=== PATIENT | female | born 1945 | race Caucasian/White ===

== ENCOUNTER 2019-03-30 08:11 | Outpatient (CLI) | payer MEDICARE, SELFPAY ==
[2019-03-30] MEDS: EPOETIN ALFA 10,000 UNITS/ML VIAL 20000 UNITS SUB-Q (08:51)
--- NOTE | 2019-03-30 08:55 | PC.NURSE ---
PATIENT HERE FOR WEEKLY PROCRIT INJECTION. LABS REVIEWED. PROCRIT ADMINISTERED SEE MAR. NO CONCERNS. PATIENT IS AWARE PROBABLY BE BACK TOMORROW FOR BLOOD TRANSFUSION. PATIENT SEEING ONCOLOGIST LATER TODAY. SAFE EXIT OF HOSPITAL.
== END 2019-03-30 08:12 | disposition home or self-care (01) ==
LOC: CHSLAB 08:15
PROVIDERS: PCP Internal Medicine Geriatric Medicine; Visit Provider Internal Medicine Hematology & Oncology
DX: D46.9 Myelodysplastic syndrome, unspecified (principal); D75.81 Myelofibrosis
CPT/HCPCS: 36415; 82728; 83540; 83550; 85025; 86850; 86900; 86901; 86920; 96372; J0885

== ENCOUNTER 2019-03-31 08:48 | Outpatient (CLI) | payer MEDICARE, SELFPAY ==
[2019-03-30 08:26] LABS: Eosinophils Absolute Auto 0.05 K/mm3 (0.02-0.50); Hematocrit 20.8 % (35.0-42.0); Immature Granulocyte Absolute 0.08 K/mm3 (0.00-0.00); Immature Granulocyte Percent A 1.6 % (0.0-0.0); Lymphocytes Absolute Auto 0.37 K/mm3 (1.10-4.50); Lymphocytes Percent Auto 7.3 % (18.0-42.0); Mean Corpuscular HGB Conc 32.2 g/dL (32.0-36.0); Mean Corpuscular Hemoglobin 30.9 pg (27.0-31.0); Mean Corpuscular Volume 95.9 fL (78.0-102.0); Mean Platelet Volume 9.2 fl (9.2-11.8); Monocytes Absolute Auto 0.59 K/mm3 (0.10-0.90); Monocytes Percent Auto 11.7 % (2.0-11.0); Neutrophils Percent Auto 78.4 % (50.0-70.0); Platelet Count Result 183 K/mm3 (150-420); Red Blood Count 2.17 M/mm3 (4.20-5.40); Red Cell Distribution Width 21.4 % (11.6-14.4); White Blood Count 5.1 K/mm3 (4.8-10.8)
[2019-03-30 08:34] LABS: Hemoglobin 6.7 g/dL (11.7-13.8)
[2019-03-30 10:19] LABS: Iron 82 ug/dL (50-170); Percent Iron Saturation 30 % (12-57)
[2019-03-30 10:37] LABS: Ferritin > 1000 ng/mL (8-252)
[2019-03-31 13:17] LABS: Hematocrit 26.1 % (35.0-42.0); Hemoglobin 8.5 g/dL (11.7-13.8)
--- NOTE | 2019-03-31 14:17 | PC.NURSE ---
1320 pt leaves. 1st unit given and hgb post is 8.6. aware. port flushed and needle removed.
== END 2019-03-31 08:49 | disposition home or self-care (01) ==
LOC: CHSTREATRM 08:52
PROVIDERS: Internal Medicine Hematology & Oncology; PCP Internal Medicine Geriatric Medicine
DX: D46.9 Myelodysplastic syndrome, unspecified (principal); D75.81 Myelofibrosis
CPT/HCPCS: 36415; 36430; 82728; 83540; 83550; 85014; 85018; 85025; 86850; 86900; 86901; 86920; J7050; P9016

== ENCOUNTER 2019-04-06 08:28 | Outpatient (CLI) | payer MEDICARE, SELFPAY ==
[2019-04-06 08:44] LABS: Hematocrit 23.6 % (35.0-42.0); Hemoglobin 7.6 g/dL (11.7-13.8); Immature Platelet Fraction Pct 2.8 % (1.0-7.0); Mean Corpuscular HGB Conc 32.2 g/dL (32.0-36.0); Mean Corpuscular Volume 93.3 fL (78.0-102.0); Mean Platelet Volume 10.3 fl (9.2-11.8); Platelet Count Result 123 K/mm3 (150-420); Red Blood Count 2.53 M/mm3 (4.20-5.40); Red Cell Distribution Width 19.6 % (11.6-14.4); White Blood Count 3.2 K/mm3 (4.8-10.8)
[2019-04-06] MEDS: EPOETIN ALFA 10,000 UNITS/ML VIAL 20000 UNITS SUB-Q (09:02)
[2019-04-06 09:18] LABS: Band Neutrophils Percent 0 % (0-6); Basophils Percent Manual 0 % (0-1); Lymphocytes Absolute Manual 0.44 K/mm3 (1.1-4.5); Lymphocytes Percent Manual 14 % (18-44); Monocytes Absolute Manual 0.25 K/mm3 (0.1-0.90); Monocytes Percent Manual 8 % (3-9); Neutrophils Absolute Manual 2.46 K/mm3 (1.7-7.2); Neutrophils Percent Manual 77 % (46-73); Total Cells Counted 100
[2019-04-06 09:19] LABS: Eosinophils Absolute Manual 0.03 K/mm3 (0.02-0.5); Eosinophils Percent Manual 1 % (1-6); Platelet Estimate Adequate (Adequate)
== END 2019-04-06 08:29 | disposition home or self-care (01) ==
LOC: CHSLAB 08:32
PROVIDERS: PCP Internal Medicine Geriatric Medicine; Visit Provider Internal Medicine Hematology & Oncology
DX: D46.9 Myelodysplastic syndrome, unspecified (principal); D75.81 Myelofibrosis
CPT/HCPCS: 36415; 85025; 85055; 96372; J0885

== ENCOUNTER 2019-04-13 08:19 | Outpatient (CLI) | payer MEDICARE, SELFPAY ==
[2019-04-13 08:33] LABS: Eosinophils Absolute Auto 0.04 K/mm3 (0.02-0.50); Hematocrit 23.4 % (35.0-42.0); Hemoglobin 7.6 g/dL (11.7-13.8); Immature Granulocyte Absolute 0.05 K/mm3 (0.00-0.00); Immature Granulocyte Percent A 1.3 % (0.0-0.0); Lymphocytes Absolute Auto 0.37 K/mm3 (1.10-4.50); Lymphocytes Percent Auto 9.3 % (18.0-42.0); Mean Corpuscular HGB Conc 32.5 g/dL (32.0-36.0); Mean Corpuscular Hemoglobin 30.3 pg (27.0-31.0); Mean Corpuscular Volume 93.2 fL (78.0-102.0); Mean Platelet Volume 9.2 fl (9.2-11.8); Monocytes Absolute Auto 0.38 K/mm3 (0.10-0.90); Monocytes Percent Auto 9.5 % (2.0-11.0); Neutrophils Absolute Auto 3.2 K/mm3 (1.7-7.2); Neutrophils Percent Auto 78.9 % (50.0-70.0); Red Blood Count 2.51 M/mm3 (4.20-5.40); Red Cell Distribution Width 20.5 % (11.6-14.4)
[2019-04-13 08:41] LABS: Platelet Count Result 180 K/mm3 (150-420)
[2019-04-13] MEDS: EPOETIN ALFA 10,000 UNITS/ML VIAL 20000 UNITS SUB-Q (08:47)
== END 2019-04-13 08:20 | disposition home or self-care (01) ==
PROVIDERS: PCP Internal Medicine Geriatric Medicine; Visit Provider Internal Medicine Hematology & Oncology
DX: D46.9 Myelodysplastic syndrome, unspecified (principal); D75.81 Myelofibrosis
CPT/HCPCS: 36415; 85025; 96372; J0885

== ENCOUNTER 2019-04-20 07:45 | Outpatient (CLI) | payer MEDICARE, SELFPAY ==
[2019-04-20 07:58] LABS: Hematocrit 21.1 % (35.0-42.0); Mean Corpuscular HGB Conc 31.8 g/dL (32.0-36.0); Mean Corpuscular Hemoglobin 30.2 pg (27.0-31.0); Mean Platelet Volume 9.5 fl (9.2-11.8); Platelet Count Result 166 K/mm3 (150-420); Red Blood Count 2.22 M/mm3 (4.20-5.40); Red Cell Distribution Width 20.8 % (11.6-14.4); White Blood Count 3.6 K/mm3 (4.8-10.8)
[2019-04-20 08:07] LABS: Hemoglobin 6.7 g/dL (11.7-13.8)
[2019-04-20 08:20] LABS: Band Neutrophils Percent 0 % (0-6); Basophils Percent Manual 0 % (0-1); Eosinophils Absolute Manual 0.03 K/mm3 (0.02-0.5); Eosinophils Percent Manual 1 % (1-6); Lymphocytes Absolute Manual 0.39 K/mm3 (1.1-4.5); Lymphocytes Percent Manual 11 % (18-44); Metamyelocytes Percent 0 %; Monocytes Absolute Manual 0.32 K/mm3 (0.1-0.90); Monocytes Percent Manual 9 % (3-9); Myelocytes Percent 0 %; Neutrophils Absolute Manual 2.84 K/mm3 (1.7-7.2); Neutrophils Percent Manual 79 % (46-73); Total Cells Counted 100
[2019-04-20] MEDS: EPOETIN ALFA 10,000 UNITS/ML VIAL 20000 UNITS SUB-Q (08:20)
[2019-04-20 08:21] LABS: Anisocytosis 2+ (NORMAL); Platelet Estimate Adequate (Adequate)
== END 2019-04-20 07:46 | disposition home or self-care (01) ==
PROVIDERS: PCP Internal Medicine Geriatric Medicine; Visit Provider Internal Medicine Hematology & Oncology
DX: D46.9 Myelodysplastic syndrome, unspecified (principal); D75.81 Myelofibrosis
CPT/HCPCS: 36415; 85025; 86850; 86900; 86901; 86923; 96372; J0885

== ENCOUNTER 2019-04-27 11:20 | Outpatient (CLI) | payer MEDICARE, SELFPAY ==
[2019-04-27 11:33] LABS: Hematocrit 29.4 % (35.0-42.0); Hemoglobin 9.5 g/dL (11.7-13.8); Immature Platelet Fraction Pct 3.1 % (1.0-7.0); Mean Corpuscular HGB Conc 32.3 g/dL (32.0-36.0); Mean Corpuscular Volume 89.6 fL (78.0-102.0); Mean Platelet Volume 10.1 fl (9.2-11.8); Platelet Count Result 125 K/mm3 (150-420); Red Blood Count 3.28 M/mm3 (4.20-5.40); Red Cell Distribution Width 18.6 % (11.6-14.4); White Blood Count 3.4 K/mm3 (4.8-10.8)
[2019-04-27] MEDS: EPOETIN ALFA 10,000 UNITS/ML VIAL 20000 UNITS SUB-Q (11:57)
[2019-04-27 12:07] LABS: Band Neutrophils Percent 0 % (0-6); Basophils Percent Manual 0 % (0-1); Eosinophils Absolute Manual 0.06 K/mm3 (0.02-0.5); Eosinophils Percent Manual 2 % (1-6); Lymphocytes Absolute Manual 0.37 K/mm3 (1.1-4.5); Lymphocytes Percent Manual 11 % (18-44); Monocytes Absolute Manual 0.23 K/mm3 (0.1-0.90); Monocytes Percent Manual 7 % (3-9); Neutrophils Absolute Manual 2.72 K/mm3 (1.7-7.2); Neutrophils Percent Manual 80 % (46-73); Platelet Estimate Adequate (Adequate); Total Cells Counted 100
== END 2019-04-27 11:21 | disposition home or self-care (01) ==
PROVIDERS: PCP Internal Medicine Geriatric Medicine; Visit Provider Internal Medicine Hematology & Oncology
DX: D46.9 Myelodysplastic syndrome, unspecified (principal); D75.81 Myelofibrosis
CPT/HCPCS: 36415; 85025; 85055; 96372; J0885

== ENCOUNTER 2019-05-04 09:05 | Outpatient (CLI) | payer MEDICARE, SELFPAY ==
[2019-05-04 09:18] LABS: Basophils Absolute Auto 0.01 K/mm3 (0.00-0.10); Basophils Percent Auto 0.2 % (0.0-1.0); Eosinophils Absolute Auto 0.07 K/mm3 (0.02-0.50); Eosinophils Percent Auto 1.5 % (1.0-6.0); Hematocrit 27.4 % (35.0-42.0); Hemoglobin 8.8 g/dL (11.7-13.8); Immature Granulocyte Absolute 0.08 K/mm3 (0.00-0.00); Immature Granulocyte Percent A 1.8 % (0.0-0.0); Lymphocytes Absolute Auto 0.31 K/mm3 (1.10-4.50); Lymphocytes Percent Auto 6.8 % (18.0-42.0); Mean Corpuscular HGB Conc 32.1 g/dL (32.0-36.0); Mean Corpuscular Volume 90.4 fL (78.0-102.0); Monocytes Absolute Auto 0.55 K/mm3 (0.10-0.90); Monocytes Percent Auto 12.1 % (2.0-11.0); Neutrophils Absolute Auto 3.5 K/mm3 (1.7-7.2); Neutrophils Percent Auto 77.6 % (50.0-70.0); Platelet Count Result 165 K/mm3 (150-420); Red Blood Count 3.03 M/mm3 (4.20-5.40); White Blood Count 4.5 K/mm3 (4.8-10.8)
[2019-05-04] MEDS: EPOETIN ALFA 10,000 UNITS/ML VIAL 20000 UNITS SUB-Q (09:39)
== END 2019-05-04 09:06 | disposition home or self-care (01) ==
LOC: CHSLAB 09:08
PROVIDERS: PCP Internal Medicine Geriatric Medicine; Visit Provider Internal Medicine Hematology & Oncology
DX: D46.9 Myelodysplastic syndrome, unspecified (principal); D75.81 Myelofibrosis
CPT/HCPCS: 36415; 85025; 96372; J0885

== ENCOUNTER 2019-05-11 07:49 | Outpatient (CLI) | payer MEDICARE, SELFPAY ==
[2019-05-11 08:06] LABS: Eosinophils Absolute Auto 0.07 K/mm3 (0.02-0.50); Eosinophils Percent Auto 1.7 % (1.0-6.0); Hematocrit 23.2 % (35.0-42.0); Hemoglobin 7.5 g/dL (11.7-13.8); Immature Granulocyte Absolute 0.03 K/mm3 (0.00-0.00); Immature Granulocyte Percent A 0.7 % (0.0-0.0); Lymphocytes Absolute Auto 0.36 K/mm3 (1.10-4.50); Lymphocytes Percent Auto 8.9 % (18.0-42.0); Mean Corpuscular HGB Conc 32.3 g/dL (32.0-36.0); Mean Corpuscular Hemoglobin 29.8 pg (27.0-31.0); Mean Corpuscular Volume 92.1 fL (78.0-102.0); Mean Platelet Volume 9.7 fl (9.2-11.8); Monocytes Absolute Auto 0.51 K/mm3 (0.10-0.90); Monocytes Percent Auto 12.6 % (2.0-11.0); Neutrophils Absolute Auto 3.1 K/mm3 (1.7-7.2); Neutrophils Percent Auto 76.1 % (50.0-70.0); Platelet Count Result 146 K/mm3 (150-420); Red Blood Count 2.52 M/mm3 (4.20-5.40); Red Cell Distribution Width 19.6 % (11.6-14.4)
[2019-05-11] MEDS: EPOETIN ALFA 10,000 UNITS/ML VIAL 20000 UNITS SUB-Q (08:28)
== END 2019-05-11 07:50 | disposition home or self-care (01) ==
PROVIDERS: PCP Internal Medicine Geriatric Medicine; Visit Provider Internal Medicine Hematology & Oncology
DX: D46.9 Myelodysplastic syndrome, unspecified (principal); D75.81 Myelofibrosis
CPT/HCPCS: 36415; 85025; 96372; J0885

== ENCOUNTER 2019-05-25 08:31 | Outpatient (CLI) | payer MEDICARE, SELFPAY ==
[2019-05-25 08:43] LABS: Basophils Absolute Auto 0.01 K/mm3 (0.00-0.10); Basophils Percent Auto 0.2 % (0.0-1.0); Eosinophils Absolute Auto 0.06 K/mm3 (0.02-0.50); Eosinophils Percent Auto 1.4 % (1.0-6.0); Hematocrit 25.9 % (35.0-42.0); Hemoglobin 8.4 g/dL (11.7-13.8); Immature Granulocyte Absolute 0.05 K/mm3 (0.00-0.00); Immature Granulocyte Percent A 1.2 % (0.0-0.0); Lymphocytes Absolute Auto 0.26 K/mm3 (1.10-4.50); Lymphocytes Percent Auto 6.2 % (18.0-42.0); Mean Corpuscular HGB Conc 32.4 g/dL (32.0-36.0); Mean Corpuscular Hemoglobin 28.9 pg (27.0-31.0); Mean Platelet Volume 9.9 fl (9.2-11.8); Monocytes Absolute Auto 0.46 K/mm3 (0.10-0.90); Neutrophils Absolute Auto 3.3 K/mm3 (1.7-7.2); Platelet Count Result 167 K/mm3 (150-420); Red Blood Count 2.91 M/mm3 (4.20-5.40); Red Cell Distribution Width 18.3 % (11.6-14.4); White Blood Count 4.2 K/mm3 (4.8-10.8)
[2019-05-25] MEDS: EPOETIN ALFA 10,000 UNITS/ML VIAL 20000 UNITS SUB-Q (09:03)
== END 2019-05-25 08:32 | disposition home or self-care (01) ==
LOC: CHSTREATRM 08:34
PROVIDERS: PCP Internal Medicine Geriatric Medicine; Visit Provider Internal Medicine Hematology & Oncology
DX: D46.9 Myelodysplastic syndrome, unspecified (principal)
CPT/HCPCS: 36415; 85025; 96372; J0885

== ENCOUNTER 2019-06-01 10:52 | Outpatient (CLI) | payer MEDICARE, SELFPAY ==
[2019-06-01 11:08] LABS: Hematocrit 24.4 % (35.0-42.0); Hemoglobin 7.9 g/dL (11.7-13.8); Mean Corpuscular HGB Conc 32.4 g/dL (32.0-36.0); Mean Corpuscular Hemoglobin 28.3 pg (27.0-31.0); Mean Corpuscular Volume 87.5 fL (78.0-102.0); Mean Platelet Volume 10.1 fl (9.2-11.8); Platelet Count Result 142 K/mm3 (150-420); Red Blood Count 2.79 M/mm3 (4.20-5.40); Red Cell Distribution Width 18.7 % (11.6-14.4); White Blood Count 3.7 K/mm3 (4.8-10.8)
[2019-06-01] MEDS: EPOETIN ALFA 10,000 UNITS/ML VIAL 20000 UNITS SUB-Q (11:26)
--- NOTE | 2019-06-01 11:38 | PC.NURSE ---
PATIENT HERE FOR WEEKLY CBC AND PROCRIT INJECTION. H/H 7.96/24.4. NO CONCERNS VOICED. PROCRIT INJECTION GIVEN. TOLERATED WELL. SAFE EXIT OF HOSPITAL.
== END 2019-06-01 10:53 | disposition home or self-care (01) ==
PROVIDERS: PCP Internal Medicine Geriatric Medicine; Visit Provider Internal Medicine Hematology & Oncology
DX: D46.9 Myelodysplastic syndrome, unspecified (principal)
CPT/HCPCS: 36415; 85027; 85055; 96372; J0885

== ENCOUNTER 2019-06-08 08:59 | Outpatient (CLI) | payer MEDICARE, SELFPAY ==
[2019-06-08 09:15] LABS: Eosinophils Absolute Auto 0.14 K/mm3 (0.02-0.50); Eosinophils Percent Auto 1.7 % (1.0-6.0); Hemoglobin 8.4 g/dL (11.7-13.8); Immature Granulocyte Absolute 0.19 K/mm3 (0.00-0.00); Immature Granulocyte Percent A 2.2 % (0.0-0.0); Lymphocytes Absolute Auto 0.47 K/mm3 (1.10-4.50); Lymphocytes Percent Auto 5.6 % (18.0-42.0); Mean Corpuscular HGB Conc 33.6 g/dL (32.0-36.0); Mean Corpuscular Hemoglobin 29.4 pg (27.0-31.0); Mean Corpuscular Volume 87.4 fL (78.0-102.0); Mean Platelet Volume 9.9 fl (9.2-11.8); Monocytes Absolute Auto 0.72 K/mm3 (0.10-0.90); Monocytes Percent Auto 8.5 % (2.0-11.0); Neutrophils Absolute Auto 6.9 K/mm3 (1.7-7.2); Nucleated Red Blood Cells Absolute Auto 0.02 K/mm3 (0.00-0.00); Nucleated Red Blood Cells Perc 0.2 % (0-0.0); Platelet Count Result 213 K/mm3 (150-420); Red Blood Count 2.86 M/mm3 (4.20-5.40); Red Cell Distribution Width 19.8 % (11.6-14.4); White Blood Count 8.5 K/mm3 (4.8-10.8)
[2019-06-08] MEDS: EPOETIN ALFA 10,000 UNITS/ML VIAL 20000 UNITS SUB-Q (09:40)
== END 2019-06-08 09:00 | disposition home or self-care (01) ==
LOC: CHSTREATRM 09:01
PROVIDERS: PCP Internal Medicine Geriatric Medicine; Visit Provider Internal Medicine Hematology & Oncology
DX: D46.9 Myelodysplastic syndrome, unspecified (principal); D75.81 Myelofibrosis
CPT/HCPCS: 36415; 85025; 96372; J0885

== ENCOUNTER 2019-06-15 07:31 | Outpatient (CLI) | payer MEDICARE, SELFPAY ==
[2019-06-15 07:50] LABS: Basophils Absolute Auto 0.01 K/mm3 (0.00-0.10); Basophils Percent Auto 0.2 % (0.0-1.0); Eosinophils Absolute Auto 0.09 K/mm3 (0.02-0.50); Eosinophils Percent Auto 1.9 % (1.0-6.0); Hematocrit 22.6 % (35.0-42.0); Hemoglobin 7.2 g/dL (11.7-13.8); Immature Granulocyte Percent A 2.1 % (0.0-0.0); Immature Platelet Fraction Pct 2.7 % (1.0-7.0); Lymphocytes Absolute Auto 0.25 K/mm3 (1.10-4.50); Lymphocytes Percent Auto 5.2 % (18.0-42.0); Mean Corpuscular HGB Conc 31.9 g/dL (32.0-36.0); Mean Corpuscular Hemoglobin 28.8 pg (27.0-31.0); Mean Corpuscular Volume 90.4 fL (78.0-102.0); Mean Platelet Volume 9.9 fl (9.2-11.8); Monocytes Absolute Auto 0.45 K/mm3 (0.10-0.90); Monocytes Percent Auto 9.4 % (2.0-11.0); Neutrophils Absolute Auto 3.9 K/mm3 (1.7-7.2); Neutrophils Percent Auto 81.2 % (50.0-70.0); Platelet Count Result 167 K/mm3 (150-420); Red Cell Distribution Width 21.6 % (11.6-14.4); White Blood Count 4.8 K/mm3 (4.8-10.8)
[2019-06-15] MEDS: EPOETIN ALFA 10,000 UNITS/ML VIAL 20000 UNITS SUB-Q (08:07)
== END 2019-06-15 07:32 | disposition home or self-care (01) ==
LOC: CHSTREATRM 07:33
PROVIDERS: PCP Internal Medicine Geriatric Medicine; Visit Provider Internal Medicine Hematology & Oncology
DX: D46.9 Myelodysplastic syndrome, unspecified (principal)
CPT/HCPCS: 36415; 85025; 85055; 96372; J0885; Q4081

== ENCOUNTER 2019-06-22 08:25 | Outpatient (CLI) | payer MEDICARE, SELFPAY ==
[2019-06-22 08:43] LABS: Basophils Absolute Auto 0.01 K/mm3 (0.00-0.10); Basophils Percent Auto 0.2 % (0.0-1.0); Eosinophils Percent Auto 1.8 % (1.0-6.0); Hematocrit 21.4 % (35.0-42.0); Immature Granulocyte Absolute 0.08 K/mm3 (0.00-0.00); Immature Granulocyte Percent A 1.5 % (0.0-0.0); Immature Platelet Fraction Pct 3.5 % (1.0-7.0); Lymphocytes Absolute Auto 0.31 K/mm3 (1.10-4.50); Lymphocytes Percent Auto 5.7 % (18.0-42.0); Mean Corpuscular HGB Conc 32.7 g/dL (32.0-36.0); Mean Corpuscular Hemoglobin 29.8 pg (27.0-31.0); Mean Corpuscular Volume 91.1 fL (78.0-102.0); Mean Platelet Volume 10.2 fl (9.2-11.8); Monocytes Absolute Auto 0.52 K/mm3 (0.10-0.90); Monocytes Percent Auto 9.6 % (2.0-11.0); Neutrophils Absolute Auto 4.4 K/mm3 (1.7-7.2); Neutrophils Percent Auto 81.2 % (50.0-70.0); Platelet Count Result 147 K/mm3 (150-420); Red Blood Count 2.35 M/mm3 (4.20-5.40); Red Cell Distribution Width 21.6 % (11.6-14.4); White Blood Count 5.4 K/mm3 (4.8-10.8)
[2019-06-22] MEDS: EPOETIN ALFA 10,000 UNITS/ML VIAL 20000 UNITS SUB-Q (10:07)
--- NOTE | 2019-06-22 10:10 | PC.NURSE ---
Injections given to patient in her car due to the COVID 19 outbreak. Pt tolerated well and discharged to home with spouse.
[2019-06-22 10:16] LABS: Alanine Aminotransferase 14 U/L (14-59); Albumin Level 3.2 g/dL (3.4-5.0); Alkaline Phosphatase 63 U/L (46-116); Anion Gap 13.3 mmol/L (7-16); Aspartate Amino Transferase 12 U/L (15-37); Bilirubin,Total 0.6 mg/dL (0.00-1.00); Blood Urea Nitrogen 22 mg/dL (7-18); Calcium 8.5 mg/dL (8.5-10.1); Carbon Dioxide 25 mmol/L (21-32); Chloride 99 mmol/L (98-108); Estimated Glomerular Filt Rate 53; Ferritin 991 ng/mL (8-252); Glucose 71 mg/dL (70-99); Iron 230 ug/dL (50-170); Osmolality Calculated 277 mOsm/kg (285-295); Percent Iron Saturation 74 % (12-57); Potassium 4.3 mmol/L (3.5-5.1); Sodium 133 mmol/L (136-145); Total Protein 5.9 g/dL (6.4-8.2)
== END 2019-06-22 08:26 | disposition home or self-care (01) ==
LOC: CHSLAB 08:28
PROVIDERS: PCP Internal Medicine Geriatric Medicine; Visit Provider Internal Medicine Hematology & Oncology
DX: D46.9 Myelodysplastic syndrome, unspecified (principal); D75.81 Myelofibrosis; K74.60 Unspecified cirrhosis of liver
CPT/HCPCS: 36415; 80053; 82728; 83540; 83550; 85025; 85055; J0885

== ENCOUNTER 2019-06-29 08:29 | Outpatient (CLI) | payer MEDICARE, SELFPAY ==
[2019-06-29 08:48] LABS: Basophils Absolute Auto 0.01 K/mm3 (0.00-0.10); Basophils Percent Auto 0.2 % (0.0-1.0); Eosinophils Absolute Auto 0.11 K/mm3 (0.02-0.50); Eosinophils Percent Auto 2.2 % (1.0-6.0); Hematocrit 25.4 % (35.0-42.0); Hemoglobin 8.5 g/dL (11.7-13.8); Immature Granulocyte Absolute 0.13 K/mm3 (0.00-0.00); Immature Granulocyte Percent A 2.6 % (0.0-0.0); Immature Platelet Fraction Pct 4.6 % (1.0-7.0); Lymphocytes Absolute Auto 0.32 K/mm3 (1.10-4.50); Lymphocytes Percent Auto 6.5 % (18.0-42.0); Mean Corpuscular HGB Conc 33.5 g/dL (32.0-36.0); Mean Corpuscular Hemoglobin 31.1 pg (27.0-31.0); Mean Platelet Volume 10.6 fl (9.2-11.8); Monocytes Absolute Auto 0.69 K/mm3 (0.10-0.90); Monocytes Percent Auto 13.9 % (2.0-11.0); Neutrophils Absolute Auto 3.7 K/mm3 (1.7-7.2); Neutrophils Percent Auto 74.6 % (50.0-70.0); Platelet Count Result 101 K/mm3 (150-420); Red Blood Count 2.73 M/mm3 (4.20-5.40); Red Cell Distribution Width 20.3 % (11.6-14.4)
[2019-06-29] MEDS: EPOETIN ALFA 10,000 UNITS/ML VIAL 20000 UNITS SUB-Q (09:05)
--- NOTE | 2019-06-29 09:05 | PC.NURSE ---
Pt to room 206 per wc. A&ox3. Has no questions or concerns. 10,000 units of epogen given sub q in each upper arm. Sites without redness, edema or drainage. Bandaids applied to each. Pt tolerated well. Discharged to home per with spouse.
== END 2019-06-29 08:30 | disposition home or self-care (01) ==
LOC: CHSTREATRM 08:33
PROVIDERS: PCP Internal Medicine Geriatric Medicine; Visit Provider Internal Medicine Hematology & Oncology
DX: D46.9 Myelodysplastic syndrome, unspecified (principal)
CPT/HCPCS: 36415; 85025; 85055; 96372; J0885

== ENCOUNTER 2019-07-06 08:05 | Outpatient (CLI) | payer MEDICARE, SELFPAY ==
[2019-07-06 08:18] LABS: Basophils Absolute Auto 0.01 K/mm3 (0.00-0.10); Basophils Percent Auto 0.2 % (0.0-1.0); Eosinophils Absolute Auto 0.12 K/mm3 (0.02-0.50); Eosinophils Percent Auto 2.1 % (1.0-6.0); Hematocrit 22.7 % (35.0-42.0); Hemoglobin 7.3 g/dL (11.7-13.8); Immature Granulocyte Absolute 0.15 K/mm3 (0.00-0.00); Immature Granulocyte Percent A 2.7 % (0.0-0.0); Immature Platelet Fraction Pct 3.7 % (1.0-7.0); Lymphocytes Absolute Auto 0.32 K/mm3 (1.10-4.50); Lymphocytes Percent Auto 5.7 % (18.0-42.0); Mean Corpuscular HGB Conc 32.2 g/dL (32.0-36.0); Mean Corpuscular Hemoglobin 30.3 pg (27.0-31.0); Mean Corpuscular Volume 94.2 fL (78.0-102.0); Mean Platelet Volume 10.5 fl (9.2-11.8); Monocytes Percent Auto 12.4 % (2.0-11.0); Neutrophils Absolute Auto 4.4 K/mm3 (1.7-7.2); Neutrophils Percent Auto 76.9 % (50.0-70.0); Platelet Count Result 132 K/mm3 (150-420); Red Blood Count 2.41 M/mm3 (4.20-5.40); Red Cell Distribution Width 20.8 % (11.6-14.4); White Blood Count 5.7 K/mm3 (4.8-10.8)
[2019-07-06] MEDS: EPOETIN ALFA 10,000 UNITS/ML VIAL 20000 UNITS SUB-Q (08:30)
== END 2019-07-06 08:06 | disposition home or self-care (01) ==
PROVIDERS: PCP Internal Medicine Geriatric Medicine; Visit Provider Internal Medicine Hematology & Oncology
DX: D46.9 Myelodysplastic syndrome, unspecified (principal)
CPT/HCPCS: 36415; 85025; 85055; 96372; J0885

== ENCOUNTER 2019-07-13 08:46 | Outpatient (CLI) | payer MEDICARE, SELFPAY ==
[2019-07-13 08:55] LABS: Basophils Absolute Auto 0.01 K/mm3 (0.00-0.10); Basophils Percent Auto 0.2 % (0.0-1.0); Eosinophils Absolute Auto 0.12 K/mm3 (0.02-0.50); Eosinophils Percent Auto 2.7 % (1.0-6.0); Hematocrit 20.5 % (35.0-42.0); Immature Granulocyte Absolute 0.08 K/mm3 (0.00-0.00); Immature Granulocyte Percent A 1.8 % (0.0-0.0); Lymphocytes Absolute Auto 0.34 K/mm3 (1.10-4.50); Lymphocytes Percent Auto 7.6 % (18.0-42.0); Mean Corpuscular HGB Conc 31.7 g/dL (32.0-36.0); Mean Corpuscular Hemoglobin 29.4 pg (27.0-31.0); Mean Corpuscular Volume 92.8 fL (78.0-102.0); Mean Platelet Volume 9.8 fl (9.2-11.8); Monocytes Percent Auto 11.2 % (2.0-11.0); Neutrophils Absolute Auto 3.4 K/mm3 (1.7-7.2); Neutrophils Percent Auto 76.5 % (50.0-70.0); Platelet Count Result 120 K/mm3 (150-420); Red Blood Count 2.21 M/mm3 (4.20-5.40); White Blood Count 4.5 K/mm3 (4.8-10.8)
[2019-07-13 09:23] LABS: Hemoglobin 6.5 g/dL (11.7-13.8)
[2019-07-13] MEDS: EPOETIN ALFA 10,000 UNITS/ML VIAL 20000 UNITS SUB-Q (09:34)
== END 2019-07-13 08:47 | disposition home or self-care (01) ==
PROVIDERS: PCP Internal Medicine Geriatric Medicine; Visit Provider Internal Medicine Hematology & Oncology
DX: D46.9 Myelodysplastic syndrome, unspecified (principal); D75.81 Myelofibrosis
CPT/HCPCS: 36415; 85025; 96372; J0885

== ENCOUNTER 2019-07-20 07:55 | Outpatient (CLI) | payer MEDICARE, SELFPAY ==
[2019-07-20 08:13] LABS: Hematocrit 21.7 % (35.0-42.0); Mean Corpuscular HGB Conc 31.8 g/dL (32.0-36.0); Mean Corpuscular Hemoglobin 29.9 pg (27.0-31.0); Mean Corpuscular Volume 93.9 fL (78.0-102.0); Mean Platelet Volume 10.2 fl (9.2-11.8); Platelet Count Result 100 K/mm3 (150-420); Red Blood Count 2.31 M/mm3 (4.20-5.40); Red Cell Distribution Width 19.3 % (11.6-14.4); White Blood Count 3.7 K/mm3 (4.8-10.8)
[2019-07-20 08:23] LABS: Hemoglobin 6.9 g/dL (11.7-13.8)
[2019-07-20] MEDS: EPOETIN ALFA 10,000 UNITS/ML VIAL 20000 UNITS SUB-Q (08:30)
== END 2019-07-20 07:56 | disposition home or self-care (01) ==
LOC: CHSTREATRM 08:23 → CHSLAB 07-22 08:48 → CHSTREATRM 07-22 08:48
PROVIDERS: PCP Internal Medicine Geriatric Medicine; Visit Provider Internal Medicine Hematology & Oncology
DX: D46.9 Myelodysplastic syndrome, unspecified (principal)
CPT/HCPCS: 36415; 85027; 96372; J0885

== ENCOUNTER 2019-07-24 08:32 | Outpatient (CLI) | payer MEDICARE, SELFPAY ==
[2019-07-24 09:28] LABS: Anion Gap 12.8 mmol/L (7-16); Blood Urea Nitrogen 30 mg/dL (7-18); Calcium 8.7 mg/dL (8.5-10.1); Carbon Dioxide 27 mmol/L (21-32); Chloride 100 mmol/L (98-108); Estimated Glomerular Filt Rate 46; Glucose 113 mg/dL (70-99); Magnesium 1.9 mg/dL (1.8-2.4); Osmolality Calculated 287 mOsm/kg (285-295); Phosphorus 3.8 mg/dL (2.6-4.7); Potassium 4.8 mmol/L (3.5-5.1); Sodium 135 mmol/L (136-145)
[2019-07-28 11:27] LABS: Vitamin D 25 Hydroxy 35 ng/mL (30-100)
== END 2019-07-24 08:33 | disposition home or self-care (01) ==
PROVIDERS: PCP Internal Medicine Geriatric Medicine
DX: E87.1 Hypo-osmolality and hyponatremia (principal); I11.0 Hypertensive heart disease with heart failure; I50.22 Chronic systolic (congestive) heart failure; D75.81 Myelofibrosis; J44.9 Chronic obstructive pulmonary disease, unspecified; D64.9 Anemia, unspecified; E55.9 Vitamin D deficiency, unspecified
CPT/HCPCS: 36415; 80048; 82306; 83735; 84100; 84550

== ENCOUNTER 2019-07-27 08:27 | Outpatient (CLI) | payer MEDICARE, SELFPAY ==
[2019-07-27 08:37] LABS: Hematocrit 20.2 % (35.0-42.0); Mean Corpuscular HGB Conc 31.7 g/dL (32.0-36.0); Mean Corpuscular Hemoglobin 29.5 pg (27.0-31.0); Mean Corpuscular Volume 93.1 fL (78.0-102.0); Mean Platelet Volume 9.6 fl (9.2-11.8); Platelet Count Result 129 K/mm3 (150-420); Red Blood Count 2.17 M/mm3 (4.20-5.40); Red Cell Distribution Width 18.5 % (11.6-14.4); White Blood Count 3.2 K/mm3 (4.8-10.8)
[2019-07-27 08:42] LABS: Hemoglobin 6.4 g/dL (11.7-13.8)
[2019-07-27 09:00] LABS: Band Neutrophils Percent 0 % (0-6); Basophils Percent Manual 0 % (0-1); Eosinophils Percent Manual 0 % (1-6); Lymphocytes Absolute Manual 0.38 K/mm3 (1.1-4.5); Lymphocytes Percent Manual 12 % (18-44); Monocytes Absolute Manual 0.41 K/mm3 (0.1-0.90); Monocytes Percent Manual 13 % (3-9); Neutrophils Percent Manual 75 % (46-73); Platelet Estimate Adequate (Adequate); Total Cells Counted 100
[2019-07-27] MEDS: EPOETIN ALFA 10,000 UNITS/ML VIAL 20000 UNITS SUB-Q (09:38)
== END 2019-07-27 08:28 | disposition home or self-care (01) ==
PROVIDERS: PCP Internal Medicine Geriatric Medicine; Visit Provider Internal Medicine Hematology & Oncology
DX: D46.9 Myelodysplastic syndrome, unspecified (principal)
CPT/HCPCS: 36415; 85025; 96372; J0885

== ENCOUNTER 2019-08-03 08:35 | Outpatient (CLI) | payer MEDICARE, SELFPAY ==
[2019-08-03 08:46] LABS: Eosinophils Percent Auto 2.3 % (1.0-6.0); Hematocrit 22.1 % (35.0-42.0); Hemoglobin 7.1 g/dL (11.7-13.8); Immature Granulocyte Absolute 0.06 K/mm3 (0.00-0.00); Immature Granulocyte Percent A 1.4 % (0.0-0.0); Lymphocytes Absolute Auto 0.36 K/mm3 (1.10-4.50); Lymphocytes Percent Auto 8.3 % (18.0-42.0); Mean Corpuscular HGB Conc 32.1 g/dL (32.0-36.0); Mean Corpuscular Hemoglobin 30.7 pg (27.0-31.0); Mean Corpuscular Volume 95.7 fL (78.0-102.0); Mean Platelet Volume 9.9 fl (9.2-11.8); Monocytes Absolute Auto 0.47 K/mm3 (0.10-0.90); Monocytes Percent Auto 10.9 % (2.0-11.0); Neutrophils Absolute Auto 3.3 K/mm3 (1.7-7.2); Neutrophils Percent Auto 77.1 % (50.0-70.0); Platelet Count Result 142 K/mm3 (150-420); Red Blood Count 2.31 M/mm3 (4.20-5.40); Red Cell Distribution Width 18.8 % (11.6-14.4); White Blood Count 4.3 K/mm3 (4.8-10.8)
[2019-08-03] MEDS: EPOETIN ALFA 10,000 UNITS/ML VIAL 20000 UNITS SUB-Q (09:00)
== END 2019-08-03 08:36 | disposition home or self-care (01) ==
PROVIDERS: PCP Internal Medicine Geriatric Medicine; Visit Provider Internal Medicine Hematology & Oncology
DX: D46.9 Myelodysplastic syndrome, unspecified (principal)
CPT/HCPCS: 36415; 85025; 96372; J0885

== ENCOUNTER 2019-08-06 09:59 | Outpatient (CLI) | payer MEDICARE, SELFPAY ==
[2019-08-06 10:25] LABS: Mean Corpuscular HGB Conc 31.9 g/dL (32.0-36.0); Mean Corpuscular Hemoglobin 30.6 pg (27.0-31.0); Mean Corpuscular Volume 95.9 fL (78.0-102.0); Mean Platelet Volume 10.5 fl (9.2-11.8); Platelet Count Result 146 K/mm3 (150-420); Red Blood Count 2.19 M/mm3 (4.20-5.40); Red Cell Distribution Width 19.2 % (11.6-14.4); White Blood Count 3.4 K/mm3 (4.8-10.8)
[2019-08-06 10:45] LABS: Hemoglobin 6.7 g/dL (11.7-13.8)
[2019-08-06 10:46] LABS: Band Neutrophils Percent 0 % (0-6); Basophils Percent Manual 0 % (0-1); Eosinophils Absolute Manual 0.06 K/mm3 (0.02-0.5); Eosinophils Percent Manual 2 % (1-6); Lymphocytes Percent Manual 6 % (18-44); Metamyelocytes Percent 1 %; Monocytes Absolute Manual 0.34 K/mm3 (0.1-0.90); Monocytes Percent Manual 10 % (3-9); Neutrophils Absolute Manual 2.75 K/mm3 (1.7-7.2); Neutrophils Percent Manual 81 % (46-73); Platelet Estimate Adequate (Adequate); Total Cells Counted 100
== END 2019-08-06 10:00 | disposition home or self-care (01) ==
PROVIDERS: Visit Provider Internal Medicine Hematology & Oncology
DX: D46.9 Myelodysplastic syndrome, unspecified (principal)
CPT/HCPCS: 36415; 85025

== ENCOUNTER 2019-10-30 09:36 | Outpatient (CLI) | payer MEDICARE, SELFPAY ==
[2019-10-30 11:25] LABS: Anion Gap 8 mmol/L (8-16); Blood Urea Nitrogen 28 mg/dL (7-18); Calcium 8.8 mg/dL (8.5-10.1); Carbon Dioxide 24 mmol/L (21-32); Chloride 98 mmol/L (98-108); Estimated Glomerular Filt Rate 32; Glucose 77 mg/dL (70-99); Osmolality Calculated 274 mOsm/kg (285-295); Sodium 130 mmol/L (136-145); Uric Acid 8.3 mg/dL (2.6-6.0)
== END 2019-10-30 09:37 | disposition home or self-care (01) ==
PROVIDERS: PCP Internal Medicine Geriatric Medicine
DX: E87.1 Hypo-osmolality and hyponatremia (principal); I50.22 Chronic systolic (congestive) heart failure; D75.81 Myelofibrosis; J44.9 Chronic obstructive pulmonary disease, unspecified; D64.9 Anemia, unspecified; I11.0 Hypertensive heart disease with heart failure
CPT/HCPCS: 36415; 80048; 84550

== ENCOUNTER 2019-12-07 10:47 | Outpatient (CLI) | payer MEDICARE, SELFPAY ==
[2019-12-07 11:04] LABS: Hematocrit 23.3 % (35.0-42.0); Hemoglobin 7.4 g/dL (11.7-13.8); Mean Corpuscular HGB Conc 31.8 g/dL (32.0-36.0); Mean Corpuscular Hemoglobin 30.7 pg (27.0-31.0); Mean Corpuscular Volume 96.7 fL (78.0-102.0); Mean Platelet Volume 9.6 fl (9.2-11.8); Platelet Count Result 148 K/mm3 (150-420); Red Blood Count 2.41 M/mm3 (4.20-5.40); Red Cell Distribution Width 18.7 % (11.6-14.4); White Blood Count 2.3 K/mm3 (4.8-10.8)
[2019-12-07 11:30] LABS: Band Neutrophils Percent 0 % (0-6); Basophils Percent Manual 0 % (0-1); Eosinophils Absolute Manual 0.06 K/mm3 (0.02-0.5); Eosinophils Percent Manual 3 % (1-6); Lymphocytes Absolute Manual 0.32 K/mm3 (1.1-4.5); Lymphocytes Percent Manual 14 % (18-44); Monocytes Absolute Manual 0.18 K/mm3 (0.1-0.90); Monocytes Percent Manual 8 % (3-9); Neutrophils Absolute Manual 1.72 K/mm3 (1.7-7.2); Neutrophils Percent Manual 75 % (46-73); Platelet Estimate Adequate (Adequate); Total Cells Counted 100
[2019-12-07 11:59] LABS: Anion Gap 9 mmol/L (8-16); Blood Urea Nitrogen 35 mg/dL (7-18); Calcium 8.6 mg/dL (8.5-10.1); Carbon Dioxide 22 mmol/L (21-32); Chloride 103 mmol/L (98-108); Estimated Glomerular Filt Rate 46; Ferritin 359 ng/mL (8-252); Glucose 85 mg/dL (70-99); Iron 99 ug/dL (50-170); Magnesium 1.9 mg/dL (1.8-2.4); Osmolality Calculated 285 mOsm/kg (285-295); Percent Iron Saturation 33 % (12-57); Phosphorus 3.7 mg/dL (2.6-4.7); Potassium 4.8 mmol/L (3.5-5.1); Sodium 134 mmol/L (136-145)
[2019-12-07 13:03] LABS: Add Urine Microscopic? YES; Appearance Urine Clear (Clear); Bilirubin Urine Negative (Negative); Blood Urine Negative (Negative); Color Urine Yellow (Yellow); Glucose Urine UA Negative (Negative); Ketones Urine Negative (Negative); Leukocyte Esterase Ur Trace LEU/UL (Negative); Nitrate Urine Negative (Negative); Protein Urine Negative (Negative); Urobilinogen Urine 0.2 mg/dL (0.2-1.0); pH Urine 6.5 (5.0-8.0)
[2019-12-07 13:09] LABS: Bacteria Urine None seen /hpf; RBC Urine 0-2 /hpf (0-2); Squamous Epithelial Cell Urine Occasional /hpf (Few); WBC Urine 0-3 /hpf (0-3)
[2019-12-07 13:19] LABS: Creatinine Urine 26.09 mg/dL (40-278); Total Protein Urine Random 15.5 mg/dL (0.0-11.9)
[2019-12-09 10:31] LABS: Vitamin D 25 Hydroxy 37 ng/mL (30-100)
[2019-12-09 14:21] LABS: Parathyroid Intact 20 pg/mL (14-64)
== END 2019-12-07 10:48 | disposition home or self-care (01) ==
PROVIDERS: PCP Internal Medicine Geriatric Medicine; Visit Provider Internal Medicine Hematology & Oncology
DX: I50.22 Chronic systolic (congestive) heart failure (principal); D75.81 Myelofibrosis; E87.1 Hypo-osmolality and hyponatremia; J44.9 Chronic obstructive pulmonary disease, unspecified; D64.9 Anemia, unspecified; I12.9 Hypertensive chronic kidney disease with stage 1 through stage 4 chronic kidney disease, or unspecified chronic kidney disease; N17.9 Acute kidney failure, unspecified; N18.9 Chronic kidney disease, unspecified; N25.0 Renal osteodystrophy; N39.0 Urinary tract infection, site not specified; E55.9 Vitamin D deficiency, unspecified
CPT/HCPCS: 36415; 80048; 81001; 82306; 82570; 82728; 83540; 83550; 83735; 83970; 84100; 84156; 85025

== ENCOUNTER 2019-12-15 18:33 | Emergency (ER) | payer MEDICARE, SELFPAY ==
--- NOTE | 2019-12-15 18:47 | ED.EAR ---
HPI - Ear Problem General Chief complaint: Ear Stated complaint: scratched ear inside, bleeding Time Seen by Provider: 12/15/19 18:47 Source: patient and family Mode of arrival: wheelchair Limitations: no limitations History of Present Illness HPI Narrative: 74-year-old woman comes in today complaining of bleeding from her left ear. Patient states that she was wearing hearing aid today and it felt uncomfortable but not painful. She states that she took her hearing aid out because she could hear and noticed that there was some fluid draining from her ear that turned out to be blood. She denies nausea, vomiting, dizziness and ear pain. At present she cannot hear in her left ear at all. She has some limited hearing in her right ear without her hearing aid. Her hearing aids are relatively new MD Complaint: ear discharge Location: left ear Duration: intermittent Severity: mild Relieving factors: nothing Exacerbating factors: nothing Discharge from ear: Reports yes - bloody Associated symptoms ear: decreased hearing Related Data Home Medications Medication Instructions Recorded Confirmed albuterol sulfate 2.5 mg INHALATION QID PRN 12/15/19 12/15/19 atorvastatin 10 mg PO DAILY 12/15/19 12/15/19 azelastine 137 mcg INTRANASAL DAILY 12/15/19 12/15/19 bupropion HCl 150 mg PO DAILY 12/15/19 12/15/19 clopidogrel 75 mg PO DAILY 12/15/19 12/15/19 deferasirox [Jadenu] 360 mg PO DAILY 12/15/19 12/15/19 diclofenac sodium 1 ea TOPICAL QID 12/15/19 12/15/19 fluticasone propionate [Flonase 2 spray INTRANASAL DAILY 12/15/19 12/15/19 Allergy Relief] metoprolol tartrate 12.5 mg PO BID 12/15/19 12/15/19 omeprazole 20 mg PO DAILY 12/15/19 12/15/19 ondansetron HCl 4 mg PO TID PRN 12/15/19 12/15/19 polyethylene glycol 3350 [Miralax] 17 g PO DAILY PRN 12/15/19 12/15/19 torsemide 5 mg PO DAILY 12/15/19 12/15/19 tramadol 50 mg PO BID MDD pain 12/15/19 12/15/19 Allergies Allergy/AdvReac Type Severity Reaction Status Date / Time diazepam Allergy Unknown Unknown Verified 12/15/19 19:02 doxycycline Allergy Unknown Unknown Verified 12/15/19 19:02 Iodinated Contrast Media Allergy Unknown Unknown Verified 12/15/19 19:02 shellfish derived Allergy Unknown Unknown Verified 12/15/19 19:02 Sulfa (Sulfonamide Allergy Unknown Unknown Verified 12/15/19 19:02 Antibiotics) Review of Systems Constitutional: Constitutional: Denies chills and Denies fever(s) ENT: Denies dysphagia, Denies dizziness, Denies nasal congestion and Denies sore throat Respiratory: Respiratory: Denies cough and Denies dyspnea Gastrointestinal: Gastrointestinal: Denies abdominal pain, Denies nausea and Denies vomiting Genitourinary: Genitourinary: Denies hematuria and Denies dysuria Neurologic: Denies vertigo and Denies syncope Hematologic/Lymphatic: Hematologic/Lymphatic: Denies easy bleeding and Denies easy bruising Allergic/Immunologic: Allergic/Immunologic: Denies lip swelling and Denies tongue swelling PMFSH Past Medical History Medical History Chronic progressive renal failure, stage 3 (moderate) COPD (chronic obstructive pulmonary disease) Coronary artery disease Diastolic congestive heart failure Mitral regurgitation Myelofibrosis Myocardial infarction Surgical History Surgical History S/p bilateral myringotomy with tube placement Stented coronary artery Social History Social History Smoking status: Former smoker Alcohol intake: current Substance use: never Living arrangements: with family Exam Const: General: healthy appearing, no acute distress and alert Nutritional Appearance: thin Orientation/consciousness: patient oriented x3 HENMT: Head: normal to inspection Ears: external ears normal ( no tenderness) and Abnormal EAC present ( bleeding at superior portion of the left, r
[2019-12-15 18:54] VITALS: BP 138/66; PULSE 92; RESP 18; TEMP 37.1; O2SAT 100
== END 2019-12-15 19:29 | disposition home or self-care (01) ==
PROVIDERS: Emergency Provider Emergency Medicine; PCP Internal Medicine Geriatric Medicine
DX: S09.91XA Unspecified injury of ear, initial encounter (principal); N18.30 Chronic kidney disease, stage 3 unspecified; J44.9 Chronic obstructive pulmonary disease, unspecified; I25.10 Atherosclerotic heart disease of native coronary artery without angina pectoris; Z87.891 Personal history of nicotine dependence
CPT/HCPCS: 99283

== ENCOUNTER 2020-01-14 08:06 | Outpatient (CLI) | payer MEDICARE, SELFPAY ==
[2020-01-14 08:42] LABS: Hematocrit 27.1 % (35.0-42.0); Hemoglobin 8.6 g/dL (11.7-13.8); Mean Corpuscular HGB Conc 31.7 g/dL (32.0-36.0); Mean Corpuscular Hemoglobin 29.7 pg (27.0-31.0); Mean Corpuscular Volume 93.4 fL (78.0-102.0); Mean Platelet Volume 9.7 fl (9.2-11.8); Platelet Count Result 180 K/mm3 (150-420); White Blood Count 3.1 K/mm3 (4.8-10.8)
[2020-01-14 09:27] LABS: Band Neutrophils Percent 0 % (0-6); Lymphocytes Absolute Manual 0.37 K/mm3 (1.1-4.5); Lymphocytes Percent Manual 12 % (18-44); Monocytes Absolute Manual 0.24 K/mm3 (0.1-0.90); Monocytes Percent Manual 8 % (3-9); Neutrophils Absolute Manual 2.44 K/mm3 (1.7-7.2); Neutrophils Percent Manual 79 % (46-73); Total Cells Counted 100
[2020-01-14 09:28] LABS: Basophils Percent Manual 0 % (0-1); Eosinophils Percent Manual 0 % (1-6); Metamyelocytes Percent 0 %; Myelocytes Percent 1 %; Platelet Estimate Adequate (Adequate)
[2020-01-14 09:44] LABS: Alanine Aminotransferase 14 U/L (14-59); Albumin Level 3.5 g/dL (3.4-5.0); Alkaline Phosphatase 81 U/L (46-116); Anion Gap 10 mmol/L (8-16); Aspartate Amino Transferase 12 U/L (15-37); Bilirubin,Total 0.6 mg/dL (0.00-1.00); Blood Urea Nitrogen 26 mg/dL (7-18); Calcium 8.9 mg/dL (8.5-10.1); Carbon Dioxide 24 mmol/L (21-32); Chloride 98 mmol/L (98-108); Estimated Glomerular Filt Rate 35; Ferritin 147 ng/mL (8-252); Glucose 82 mg/dL (70-99); LDL Cholesterol Direct 26 mg/dL (0-130); Magnesium 1.9 mg/dL (1.8-2.4); Osmolality Calculated 277 mOsm/kg (285-295); Phosphorus 4.2 mg/dL (2.6-4.7); Potassium 5.1 mmol/L (3.5-5.1); Sodium 132 mmol/L (136-145); Total Protein 6.5 g/dL (6.4-8.2); Uric Acid 7.4 mg/dL (2.6-6.0)
== END 2020-01-14 08:07 | disposition home or self-care (01) ==
PROVIDERS: PCP Internal Medicine Geriatric Medicine; Visit Provider Internal Medicine Hematology & Oncology
DX: E87.1 Hypo-osmolality and hyponatremia (principal); I50.22 Chronic systolic (congestive) heart failure; D75.81 Myelofibrosis; J44.9 Chronic obstructive pulmonary disease, unspecified; D64.9 Anemia, unspecified; I12.9 Hypertensive chronic kidney disease with stage 1 through stage 4 chronic kidney disease, or unspecified chronic kidney disease; N17.9 Acute kidney failure, unspecified; N18.9 Chronic kidney disease, unspecified
CPT/HCPCS: 36415; 80053; 82728; 83721; 83735; 84100; 84550; 85025

== ENCOUNTER 2020-03-03 12:05 | Outpatient (CLI) | payer MEDICARE, SELFPAY ==
--- NOTE | 2020-03-03 12:18 | ECHO_ITS ---
Patient Info Name: Agustina Hampton Age: 74 years : 1945 Gender: Female Ht: 57 in Wt: 87 lbs BSA: 1.26 m2 HR: 89 bpm BP: 126 / 54 mmHg Heart Rhythm: Sinus Rhythm Technical Quality: Excellent Exam Date: 03/03/2020 12:22 PM Exam Location: [facility] Patient Status: Outpatient Admit Date: 03/03/2020 Staff Ordering Physician: MeganWilfrid MD Craft Coordinator: Erica Mabry RDCS Attending Provider: MarisabelWilfrid MD Referring Physician: Megan ADAM; Exam Type: CA echo doppler color flow Study Info Indications I25.9 - Chronic ischemic heart disease, unspecified I24.0 - Acute coronary thrombosis not resulting in myocardial infarction Complete two-dimensional, color flow and Doppler transthoracic echocardiogram is performed. Strain analysis performed. History/Risk Factors Hypertension: Yes Dyslipidemia: Yes Congenital Heart Disease (CHD): No Myocardial Infarction (AL): Yes Chronic Lung Disease: No Obesity: No Renal Disease: Yes Coronary Artery Disease (CAD) Yes Diabetes Mellitus: No COPD: On Meds, On Home Oxygen Tobacco Use: Former Cerebrovascular Disease: No Family History: Diabetes Mellitus, Coronary Artery Disease Deep Vein Thrombosis (DVT): None Dialysis: None Frailty Scale (CSHA): 6: Moderately Frail Prior Interventions PCI: No Summary 1. Complete two-dimensional, color flow and Doppler transthoracic echocardiogram is performed. 2. Left ventricular chamber dimension is normal. 3. Left ventricular systolic function is normal, estimated at 50-55%. 4. The left ventricular diastolic function is grade III diastolic dysfunction. 5. E/e' 21 is elevated. 6. The mitral valve has moderately calcified annulus. 7. There is moderate mitral valve regurgitation. 8. There is mild to moderate tricuspid valve regurgitation. 9. Severe pulmonary hypertension, estimated pulmonary arterial systolic pressure is 61 mmHg. 10. There is mild pulmonic regurgitation. Left Ventricle E/e' 21 is elevated. Left ventricular chamber dimension is normal. Left ventricular systolic function is normal, estimated at 50-55%. The left ventricular diastolic function is grade III diastolic dysfunction. Right Ventricle Right ventricular chamber dimension is normal. Right ventricular systolic function is normal. Left Atria Left atrial chamber dimension is severely enlarged. Right Atria Right atrial chamber dimension is normal. Aortic Valve The aortic valve is trileaflet. There is no aortic valve stenosis. There is no aortic valve regurgitation. Pulmonic Valve There is mild pulmonic regurgitation. Mitral Valve The mitral valve has moderately calcified annulus. There is no mitral valve stenosis. There is moderate mitral valve regurgitation. Tricuspid Valve There is mild to moderate tricuspid valve regurgitation. Severe pulmonary hypertension, estimated pulmonary arterial systolic pressure is 61 mmHg. Pericardium/Pleural There is no pericardial effusion. Inferior Vena Cava Normal inferior vena cava with >50% collapse upon inspiration consistent with normal right atrial pressure, 5 mmHg. Aorta The aortic root size at the sinus of Valsalva is normal. Left Ventricular Outflow Tract Name Value Normal
== END 2020-03-03 12:06 | disposition home or self-care (01) ==
LOC: CHSIMG 12:12
PROVIDERS: PCP Internal Medicine Geriatric Medicine; Visit Provider Internal Medicine Cardiovascular Disease
DX: I24.0 Acute coronary thrombosis not resulting in myocardial infarction (principal); I25.9 Chronic ischemic heart disease, unspecified
CPT/HCPCS: 93306

== ENCOUNTER 2020-07-27 17:53 | Inpatient (IN) | payer MEDICARE, SELFPAY ==
[2020-07-27] VITALS (10 sets, daily range): BP systolic 114–164; BP diastolic 60–92; PULSE 82–100; RESP 20–35; TEMP 35.8–36.9; O2SAT 80–100; BMI 20.8
--- NOTE | ~2020-07-27 | XR_ITS ---
XR chest 1V portable DATE: 07/27/2020 18:11 INDICATION: Shortness of breath TECHNIQUE: Portable AP view on 07/27/2020 at 1823 hours COMPARISON: 10/14/2018 portable AP chest FINDINGS: Cardiomegaly. There is pulmonary vascular congestion and redistribution. Michael B-lines are noted, consistent with pulmonary interstitial edema. There are bilateral pleural effusions, small on the right, mild to moderate on the left. There are bilateral lower lung infiltrates or atelectasis, greater on the left. Aortic calcification. Left Port-A-Cath catheter tip overlies the superior vena cava. No pneumothorax. Diffuse osteopenia. Severe osteoarthritic deformity at the left glenohumeral joint and suggestion of old left surgical hu meral neck fracture deformity IMPRESSION: Congestive heart failure Bilateral lower lung infiltrate or atelectasis, left greater than right Bilateral pleural effusions, left greater than right Reviewed, dictated and finalized at location A.
--- NOTE | 2020-07-27 18:02 | ED.SOB ---
HPI - SOB/Dyspnea General Chief Complaint: Shortness of Breath/Dyspnea Stated Complaint: AMB History of Present Illness HPI Narrative: 74-year-old female patient is brought to the ER by EMS with the increasing shortness of breath. The history is obtained from the who states that the patient had 1 unit of blood transfused this morning at [facility] for her anemia. She had some mild discomfort of breathing prior to the blood transfusion however after she got home the breathing difficulty got worse to the point that patient was unable to speak in full sentences and preferred to sit in a tripod position. According to the who is the main history provider the patient has recurrent bouts of shortness of breath and her last admission to the hospital was a week ago at [place]. Patient has COPD as well as has had congestive heart failure. She is on home oxygen 247. She gets it at 2 liters/minute. Patient also has a history of myelofibrosis and has frequent bouts of anemia. Her last blood count showed a hemoglobin of 7 and was given 1 unit of blood today. The patient tolerated the blood well. No fever or cough is reported at this time. Patient is up-to-date on her COVID vaccination and she has had no recent COVID contact. Related Data Home Medications Medication Instructions Recorded Confirmed albuterol sulfate 2.5 mg INHALATION QID PRN 12/15/19 07/27/20 bupropion HCl 150 mg PO DAILY 12/15/19 07/27/20 clopidogrel 75 mg PO DAILY 12/15/19 07/27/20 deferasirox [Jadenu] 360 mg PO DAILY 12/15/19 07/27/20 metoprolol tartrate 12.5 mg PO BID 12/15/19 07/27/20 omeprazole 20 mg PO DAILY 12/15/19 07/27/20 ondansetron HCl 4 mg PO TID PRN 12/15/19 07/27/20 torsemide 5 mg PO DAILY 12/15/19 07/27/20 Allergies Allergy/AdvReac Type Severity Reaction Status Date / Time diazepam Allergy Unknown Unknown Verified 12/15/19 19:02 doxycycline Allergy Unknown Unknown Verified 12/15/19 19:02 Iodinated Contrast Media Allergy Unknown Unknown Verified 12/15/19 19:02 shellfish derived Allergy Unknown Unknown Verified 12/15/19 19:02 Sulfa (Sulfonamide Allergy Unknown Unknown Verified 10/20/20 19:02 Antibiotics) Review of Systems Review of Systems: Narrative: Review of systems is limited because of patient's condition however according to the all other systems have been reviewed and are unremarkable at this present time except for her presenting complaint. All systems reviewed & are unremarkable except as noted in HPI and below PMFSH Past Medical History Medical History Chronic progressive renal failure, stage 3 (moderate) COPD (chronic obstructive pulmonary disease) Coronary artery disease Diastolic congestive heart failure Mitral regurgitation Myelofibrosis Myocardial infarction Surgical History Surgical History S/p bilateral myringotomy with tube placement Stented coronary artery Social History Social History Smoking status: Former smoker Alcohol intake: current Substance use: never Exam Narrative: Exam Narrative: Frail looking elderly female patient in acute respiratory distress with tachypnea with a heart rate of 34 beats per minute. Patient prefers this set up for breathing comfort. She appears anxious but is alert and oriented to time place and person. Vital signs are noted to be stable with exception of elevated blood pressure in addition to elevated respiratory rate. She shows sinus rhythm on the monitor with a rate of 100 per minute. Blood pressure is 164/92 on arrival. With oxygen by a a mask the patient saturates around 97%. HEENT is unremarkable. Patient does have some scleral pallor noted. Pupils are midsize and equal and reactive to light. EOMs are intact. Oral mucous membranes are moist. Head is atraumatic. Face is symmetric. Neck is supple.
--- NOTE | 2020-07-27 18:10 | ECG_ITS ---
Measurements Intervals [place] Rate: 89 P: 64 MT: 162 QRS: 21 QRSD: 91 T: 171 QT: 372 QTc: 453 Interpretive Statements SINUS RHYTHM ATRIAL PREMATURE COMPLEX DELAYED PRECORDIAL R/S TRANSITION ST-T WAVE ABNORMALITY IN ANTEROLAT/HIGH LAT LEADS- CONSIDER ISCHEMIA BASELINE ARTIFACT- I, II, III, AVR, AVL, AVF, V1-V3 ABNORMAL ECG Electronically Signed On 07-27-2020 21:57:20 CDT by Navarro Bliss D.O.
[2020-07-27 18:43] LABS: Hematocrit 35.6 % (35.0-42.0); Hemoglobin 11.5 g/dL (11.7-13.8); Immature Platelet Fraction Pct 5.4 % (1.0-7.0); Mean Corpuscular HGB Conc 32.3 g/dL (32.0-36.0); Mean Corpuscular Hemoglobin 28.8 pg (27.0-31.0); Mean Platelet Volume 10.4 fl (9.2-11.8); Platelet Count Result 31 K/mm3 (150-420); Red Cell Distribution Width 16.6 % (11.6-14.4); White Blood Count 5.4 K/mm3 (4.8-10.8)
[2020-07-27] MEDS: methylPREDNISolone SOD SUCC 125 MG VIAL IV PUSH (18:50)
[2020-07-27 18:52] LABS: Prothrombin Time 10.9 Seconds (9.50-12.10)
[2020-07-27] MEDS: FUROSEMIDE INJ 40 MG/4 ML VIAL 60 MG IV PUSH (18:52)
[2020-07-27 19:00] LABS: Band Neutrophils Percent 0 % (0-6); Basophils Percent Manual 0 % (0-1); Eosinophils Percent Manual 2 % (1-6); Lymphocytes Absolute Manual 0.21 K/mm3 (1.1-4.5); Lymphocytes Percent Manual 4 % (18-44); Monocytes Absolute Manual 2.91 K/mm3 (0.1-0.90); Monocytes Percent Manual 54 % (3-9); Neutrophils Absolute Manual 2.16 K/mm3 (1.7-7.2); Neutrophils Percent Manual 40 % (46-73); Platelet Estimate Decreased (Adequate); Total Cells Counted 100
[2020-07-27 19:03] LABS: Add Urine Microscopic? YES; Appearance Urine Clear (Clear); Bilirubin Urine Negative (Negative); Blood Urine Negative (Negative); Color Urine Yellow (Yellow); Glucose Urine UA Negative (Negative); Ketones Urine Negative (Negative); Leukocyte Esterase Ur Negative LEU/UL (Negative); Nitrate Urine Negative (Negative); Protein Urine 1+ (Negative); Urobilinogen Urine 0.2 mg/dL (0.2-1.0); pH Urine 6.5 (5.0-8.0)
[2020-07-27 19:09] LABS: RBC Urine 0-2 /hpf (0-2); WBC Urine 0-3 /hpf (0-3)
[2020-07-27 19:10] LABS: Bacteria Urine Trace /hpf
--- NOTE | 2020-07-27 19:10 | PC.NURSE ---
Pt. resting more comfortably, bipap in place VSS. Report given to YONIS Ogden
[2020-07-27 19:21] LABS: Alanine Aminotransferase 16 U/L (14-59); Albumin Level 3.4 g/dL (3.4-5.0); Alkaline Phosphatase 97 U/L (46-116); Anion Gap 10 mmol/L (8-16); Aspartate Amino Transferase 14 U/L (15-37); Bilirubin,Total 1.1 mg/dL (0.00-1.00); Blood Urea Nitrogen 28 mg/dL (7-18); Calcium 8.5 mg/dL (8.5-10.1); Carbon Dioxide 24 mmol/L (21-32); Chloride 101 mmol/L (98-108); Estimated Glomerular Filt Rate 41; Glucose 115 mg/dL (70-99); Magnesium 1.7 mg/dL (1.8-2.4); NT Pro B Type Natriuretic Pept 28447 pg/mL (0-450); Osmolality Calculated 286 mOsm/kg (285-295); Potassium 4.8 mmol/L (3.5-5.1); Sodium 135 mmol/L (136-145); Total Protein 6.3 g/dL (6.4-8.2); Troponin I 33.6 ng/L (0.00-60.4)
[2020-07-27] MEDS: MAGNESIUM SULF 2 GM/WATER 50ML 2 GM/50 ML BAG IVPB (21:40)
--- NOTE | 2020-07-27 22:39 | ADMGEN ---
This patient, Agustina Hampton, was admitted to 2nd Floor Room 208-2. Patient/family oriented to hospital policies and general routines including ID bracelet, bed and alarms, visiting hours, pain management, procedures, bathroom and other care routines, personal items, smoking policy, room service/diet, and visiting hours. Information on how to activate the Rapid Response Team has been discussed. Patient/Family are encouraged to report perceived risks to care and to ask questions if they do not understand what they are told or what they should do. Patient arrived to unit at 2034. Patient on non rebreather and RT connected patient to continous Bipap. Patient having SOB at times. Sitting at almost 90 degrees in bed. , POA, was present with patient and reviewed admission, code status and allergies with patient.
[2020-07-27] MEDS: IPRATROPIUM 0.5 MG/ALBUTEROL SULFATE 2.5 MG AMPUL.NEB 3 ML INHALATION (22:56)
[2020-07-28] VITALS (18 sets, daily range): BP systolic 90–130; BP diastolic 63–84; PULSE 78–97; RESP 16–34; TEMP 36.2–37.1; O2SAT 91–100
[2020-07-28] MEDS: methylPREDNISolone SOD SUCC 125 MG VIAL 80 MG IV PUSH ×3 (05:25→21:00)
[2020-07-28] MEDS: IPRATROPIUM 0.5 MG/ALBUTEROL SULFATE 2.5 MG AMPUL.NEB 3 ML INHALATION ×4 (06:10→22:49)
--- NOTE | 2020-07-28 06:42 | PC.NURSE ---
Patient's called to ask about patient's condition during the night. Report given.
[2020-07-28 07:50] LABS: Hematocrit 34.2 % (35.0-42.0); Hemoglobin 11.3 g/dL (11.7-13.8); Immature Platelet Fraction Pct 5.2 % (1.0-7.0); Mean Corpuscular Hemoglobin 28.7 pg (27.0-31.0); Mean Corpuscular Volume 86.8 fL (78.0-102.0); Mean Platelet Volume 9.9 fl (9.2-11.8); Red Blood Count 3.94 M/mm3 (4.20-5.40); Red Cell Distribution Width 16.6 % (11.6-14.4)
[2020-07-28 07:55] LABS: White Blood Count 0.6 K/mm3 (4.8-10.8)
[2020-07-28 07:56] LABS: Platelet Count Result 23 K/mm3 (150-420)
[2020-07-28 08:15] LABS: Alanine Aminotransferase 17 U/L (14-59); Albumin Level 3.3 g/dL (3.4-5.0); Alkaline Phosphatase 95 U/L (46-116); Anion Gap 13 mmol/L (8-16); Aspartate Amino Transferase 11 U/L (15-37); Bilirubin,Total 1.3 mg/dL (0.00-1.00); Blood Urea Nitrogen 33 mg/dL (7-18); Carbon Dioxide 23 mmol/L (21-32); Chloride 100 mmol/L (98-108); Estimated Glomerular Filt Rate 36; Glucose 122 mg/dL (70-99); NT Pro B Type Natriuretic Pept > 35000 pg/mL (0-450); Osmolality Calculated 290 mOsm/kg (285-295); Potassium 4.8 mmol/L (3.5-5.1); Sodium 136 mmol/L (136-145); Total Protein 6.3 g/dL (6.4-8.2)
[2020-07-28] MEDS: traMADol HCL (*CRX) 50 MG TABLET PO ×2 (08:55→17:02)
--- NOTE | 2020-07-28 09:01 | PC.NURSE ---
Patients states they prefer not to take the hospitals medications while patient is observation because insurance does not pay for medications and he has all of her meds from home. Charge nurse and pharmacy notified.
--- NOTE | 2020-07-28 09:19 | PHAR ---
07/28/20: verified pt.'s home med [place] 360mg
[2020-07-28] MEDS: FUROSEMIDE INJ 100 MG/10 ML VIAL 80 MG IV PUSH (09:31)
--- NOTE | 2020-07-28 09:41 | PM.IMHP ---
H&P: HPI History of Present Illness Date/Time: 07/28/20 09:41 this is a 74-year-old female that presented to ED department via EMS due to increased shortness of breath. Patient has a past medical history of stage III chronic kidney failure, COPD, CAD, congestive heart failure, mutual regurgitation, myelofibrosis and DC. According to patient she receives a blood transfusion weekly due to her anemia. She noted that the last 2 times of receiving transfusion she became more short of breath. According to patient last transfusion she received 2 units of PRBCs and afterwards had to visit the emergency department due to shortness of breath. Patient notes that her admission was at [facility] she was given Lasix, steroids and breathing treatment as inpatient and discharged. Patient noted that she also experienced shortness of breath this time with her blood transfusion. Patient did receive 80 mg of Lasix Solu-Medrol and breathing treatment while in the ED. patient was placed on the BiPAP overnight she is currently on 2 L nasal cannula statin and mid to upper 90s. She does not appear to be in any distress. The patient denies, CP, palpitation, extremity numbness, lightheadedness, dizziness, constipation, diarrhea, chills, or fever. I will contact patient's performance consultant oncologist Dr. Song and her concrete panel installer Dr Freddy Beard. Patient has no current distress she does have shortness of breath but this is chronic for her. She notes that her condition has improved since admission. Inpatient Time spent 60 minutes Disposition discharged home Per Dr. Song, transfuse with platelets 20 or below. Patient does not appear to be actively bleeding and she is stable. Chief Complaint: Congestive heart failure, thrombocytopenia, leukocytosis Review of Systems Review of Systems: Narrative: A 14 organ system Review of Systems was performed and pertinent positives included in the HPI, otherwise remaining ROS is negative. [facility] Past Medical History Medical History Chronic progressive renal failure, stage 3 (moderate) COPD (chronic obstructive pulmonary disease) Coronary artery disease Diastolic congestive heart failure Mitral regurgitation Myelofibrosis Myocardial infarction Surgical History Surgical History S/p bilateral myringotomy with tube placement Stented coronary artery Social History Social History Smoking packs per day: 1 Smoking cigarettes per day: 20.0 Smoking status: Former smoker Tobacco type: cigarettes Second hand tobacco smoke exposure: No Alcohol intake: current Drinks per week: 1 Substance use: current Substance use type: other Other substance usage details: Tramadol BID Last use: 07/27/20 Gender identity (if verbalized by the patient): Female Spiritual care concerns: No Meds Home Medications and Allergies Home Medications Medication Instructions Recorded Confirmed Type albuterol sulfate 2.5 mg INHALATION QID PRN 12/15/19 07/27/20 History bupropion HCl 150 mg PO DAILY 12/15/19 07/27/20 History clopidogrel 75 mg PO DAILY 12/15/19 07/27/20 History deferasirox [Jadenu] 360 mg PO DAILY 12/15/19 07/27/20 History metoprolol tartrate 12.5 mg PO BID 12/15/19 07/27/20 History omeprazole 20 mg PO DAILY 12/15/19 07/27/20 History ondansetron HCl 4 mg PO TID PRN 12/15/19 07/27/20 History torsemide 5 mg PO DAILY 12/15/19 07/27/20 History Allergies Allergy/AdvReac Type Severity Reaction Status Date / Time diazepam Allergy Unknown Unknown Verified 12/15/19 19:02 doxycycline Allergy Unknown Unknown Verified 12/15/19 19:02 Iodinated Contrast Media Allergy Unknown Unknown Verified 12/15/19 19:02 shellfish derived Allergy Unknown Unknown Verified 12/15/19 19:02 Sulfa (Sulfonamide Allergy Unknown Unknown Verified 12/15/19 19:02 Antibiotics)
[2020-07-28] MEDS: RANOLAZINE 500 MG TAB.ER.12H PO ×2 (09:58→21:00)
[2020-07-28] MEDS: CLOPIDOGREL BISULFATE 75 MG TABLET PO (09:59)
[2020-07-28] MEDS: METOPROLOL TARTRATE 12.5 MG TABLET PO ×2 (09:59→20:59)
[2020-07-28] MEDS: ACYCLOVIR 200 MG CAPSULE 400 MG PO ×2 (09:59→17:02)
[2020-07-28] MEDS: TORSEMIDE 20 MG TABLET 5 MG PO (09:59)
[2020-07-28 11:52] LABS: Hematocrit 33.4 % (35.0-42.0); Hemoglobin 11.1 g/dL (11.7-13.8); Mean Corpuscular HGB Conc 33.2 g/dL (32.0-36.0); Mean Corpuscular Hemoglobin 28.6 pg (27.0-31.0); Mean Corpuscular Volume 86.1 fL (78.0-102.0); Mean Platelet Volume 12.4 fl (9.2-11.8); Red Blood Count 3.88 M/mm3 (4.20-5.40); Red Cell Distribution Width 16.7 % (11.6-14.4)
[2020-07-28 11:53] LABS: White Blood Count 0.6 K/mm3 (4.8-10.8)
[2020-07-28 11:55] LABS: Platelet Count Result 26 K/mm3 (150-420)
[2020-07-28] MEDS: LORazepam (*CRX) 0.5 MG TABLET PO ×2 (15:34→21:06)
[2020-07-28] MEDS: FUROSEMIDE INJ 40 MG/4 ML VIAL IV PUSH (17:04)
[2020-07-29] VITALS (13 sets, daily range): BP systolic 100–126; BP diastolic 55–76; PULSE 78–93; RESP 16–20; TEMP 36.1–37.3; O2SAT 96–100
[2020-07-29] MEDS: methylPREDNISolone SOD SUCC 125 MG VIAL 80 MG IV PUSH (05:24)
[2020-07-29] MEDS: IPRATROPIUM 0.5 MG/ALBUTEROL SULFATE 2.5 MG AMPUL.NEB 3 ML INHALATION ×3 (06:05→17:30)
[2020-07-29] MEDS: RANOLAZINE 500 MG TAB.ER.12H PO ×2 (08:07→20:20)
[2020-07-29] MEDS: traMADol HCL (*CRX) 50 MG TABLET PO ×2 (08:08→16:25)
[2020-07-29] MEDS: TORSEMIDE 20 MG TABLET 5 MG PO (08:08)
[2020-07-29] MEDS: LORazepam (*CRX) 0.5 MG TABLET PO (08:08)
[2020-07-29] MEDS: CLOPIDOGREL BISULFATE 75 MG TABLET PO (08:08)
[2020-07-29] MEDS: FUROSEMIDE INJ 40 MG/4 ML VIAL IV PUSH (08:08)
[2020-07-29 08:14] LABS: Hematocrit 29.8 % (35.0-42.0); Hemoglobin 10.2 g/dL (11.7-13.8); Mean Corpuscular HGB Conc 34.2 g/dL (32.0-36.0); Mean Corpuscular Hemoglobin 29.1 pg (27.0-31.0); Mean Corpuscular Volume 85.1 fL (78.0-102.0); Mean Platelet Volume 10.6 fl (9.2-11.8); Platelet Count Result 26 K/mm3 (150-420); Red Cell Distribution Width 16.4 % (11.6-14.4)
[2020-07-29 08:20] LABS: White Blood Count 0.4 K/mm3 (4.8-10.8)
[2020-07-29 08:38] LABS: Alanine Aminotransferase 14 U/L (14-59); Albumin Level 3.3 g/dL (3.4-5.0); Alkaline Phosphatase 85 U/L (46-116); Anion Gap 12 mmol/L (8-16); Aspartate Amino Transferase 10 U/L (15-37); Bilirubin,Total 1.1 mg/dL (0.00-1.00); Blood Urea Nitrogen 45 mg/dL (7-18); Calcium 8.2 mg/dL (8.5-10.1); Carbon Dioxide 24 mmol/L (21-32); Chloride 98 mmol/L (98-108); Estimated Glomerular Filt Rate 34; Glucose 140 mg/dL (70-99); Osmolality Calculated 291 mOsm/kg (285-295); Potassium 4.1 mmol/L (3.5-5.1); Sodium 134 mmol/L (136-145); Total Protein 5.9 g/dL (6.4-8.2)
[2020-07-29] MEDS: ACYCLOVIR 200 MG CAPSULE 400 MG PO ×2 (08:38→16:25)
[2020-07-29] MEDS: METOPROLOL TARTRATE 12.5 MG TABLET PO ×2 (08:38→20:20)
[2020-07-29 09:10] LABS: Band Neutrophils Percent 0 % (0-6); Total Cells Counted 50
[2020-07-29 09:15] LABS: Lymphocytes Absolute Manual 0.08 K/mm3 (1.1-4.5); Lymphocytes Percent Manual 20 % (18-44); Monocytes Absolute Manual 0.12 K/mm3 (0.1-0.90); Monocytes Percent Manual 32 % (3-9); Neutrophils Absolute Manual 0.19 K/mm3 (1.7-7.2); Neutrophils Percent Manual 48 % (46-73)
[2020-07-29 09:17] LABS: Platelet Estimate Decreased (Adequate)
[2020-07-29 09:26] LABS: NT Pro B Type Natriuretic Pept 27210 pg/mL (0-450)
--- NOTE | 2020-07-29 09:28 | PM.IMPN ---
Progress Note: A&P Assessment and Plan (1) Neutropenia: Code(s): D70.9 - Neutropenia, unspecified Status: Acute Assessment and Plan: 07/29/2020 Plts 26,000, H/H 10.2/29.8, Absolute Neut 0.19, Neut % 48, Discussed with Dr. Song, Oncologist, Recommendations include: Neutropenic Precautions (in place today), Neupogen 300 mcg Daily (today and tomorrow then Zarxio which is in formulary at [place] to continue on Saturday07/31/2020), Levaquin (pharmacy to dose based on Renal Function, first dose ordered 500 mg), Acyclovir 400 mg BID (currently active), stop Plavix d/t Plts of 26,000; continue to monitor CBC and signs of infections, Pt Afebrile, no fever/chills, VSS (2) Acute exacerbation of CHF (congestive heart failure): Qualifiers: Heart failure type: diastolic Qualified Code(s): I50.33 - Acute on chronic diastolic (congestive) heart failure Code(s): I50.9 - Heart failure, unspecified Status: Acute Assessment and Plan: BNP 87279--> >53589 Chest x-ray indicates congestive heart failure Patient received Lasix 80 mg in ED in addition 80 mg and daily torsemide I will contact patient's lock and dam repairer Dr. Dr Hayes for any recommendations 07/29/2020 Renal function upper limits of [place], reducing Lasix to 20mg BID, Pt states breathing improving. (3) COPD (chronic obstructive pulmonary disease): Qualifiers: COPD type: unspecified COPD Qualified Code(s): J44.9 - Chronic obstructive pulmonary disease, unspecified Code(s): J44.9 - Chronic obstructive pulmonary disease, unspecified Status: Acute Assessment and Plan: Continue nebulizer and inhalers Continue Patient placed on BiPAP overnight stabilized currently on 2 L nasal cannula satting in the mid to upper 90s 07/29/2020 Pt was unable to tolerate the BiPAP as she is Claustrophobic, SpO2 upper 90s with NC, continue with breathing treatments, requested Incentive Spirometer. chronic condition is stable at this time, steroids reduced to 40 Q8H (4) Chronic progressive renal failure, stage 3 (moderate): Code(s): N18.30 - Chronic kidney disease, stage 3 unspecified Status: Acute Assessment and Plan: Patient creatinine 1.27>1.41. Patient baseline appears to be at 1.15-1.45 Patient lock and dam repairer at [facility] Dr. Hayes We will renal dose medication Avoid nephrotoxic agent We will continue to monitor 07/29/2020 Renal failure is stable, Cr 1.49 upper limit of baseline, continue to monitor, Lasix decreased to 20 mg BID and continue Torsemide at this time. (5) Mitral regurgitation: Qualifiers: Cardiac valve disease etiology: etiology unspecified Qualified Code(s): I34.0 - Nonrheumatic mitral (valve) insufficiency Code(s): I34.0 - Nonrheumatic mitral (valve) insufficiency Status: Acute Assessment and Plan: Follow-up with maintenance worker house trailer (6) Coronary artery disease: Qualifiers: Associated angina: without angina Coronary Disease-Associated Artery/Lesion type: unspecified vessel or lesion type [place] vs. transplanted heart: [place] heart Qualified Code(s): I25.10 - Atherosclerotic heart disease of [place] coronary artery without angina pectoris Code(s): I25.10 - Atherosclerotic heart disease of [place] coronary artery without angina pectoris Status: Acute Assessment and Plan: Continue Plavix 07/29/2020 Plavix DC'ed at this time due to Thrombocytopenia of 26,000 (7) Myelofibrosis: Code(s): D75.81 - Myelofibrosis Status: Acute Assessment and Plan: Patient is followed by Dr. Song Contacted Dr. Erika Lepe for recommendations Patient receives weekly PRBC transfusions last one 07/27/2020 07/29/2020 Plts 26,000, H/H 10.2/29.8, Absolute Neut 0.19, Neut % 48, Discussed with Dr. Song, Oncologist, See above for details. (8) Leukocytopenia: Code(s): D72.819 - Decreased white blood cell count, unspecified Status: Acut
[2020-07-29] MEDS: levoFLOXacin 500 MG/D5W 100 ML 500 MG/100 ML BAG 100 MG IVPB (12:00)
[2020-07-29] MEDS: methylPREDNISolone SOD SUCC 40 MG VIAL IV PUSH ×2 (13:56→21:09)
[2020-07-29] MEDS: FUROSEMIDE INJ 40 MG/4 ML VIAL 20 MG IV PUSH (16:25)
[2020-07-29] MEDS: FILGRASTIM 300 MCG/ML VIAL SUB-Q (16:28)
[2020-07-30] VITALS (10 sets, daily range): BP systolic 94–121; BP diastolic 52–64; PULSE 85–102; RESP 18; TEMP 36.8–37.6; O2SAT 94–99
[2020-07-30] MEDS: IPRATROPIUM 0.5 MG/ALBUTEROL SULFATE 2.5 MG AMPUL.NEB 3 ML INHALATION ×2 (00:01→05:58)
[2020-07-30] MEDS: methylPREDNISolone SOD SUCC 40 MG VIAL IV PUSH (05:46)
[2020-07-30 05:50] LABS: Hematocrit 31.1 % (35.0-42.0); Hemoglobin 10.4 g/dL (11.7-13.8); Immature Platelet Fraction Pct 6.2 % (1.0-7.0); Mean Corpuscular HGB Conc 33.4 g/dL (32.0-36.0); Mean Corpuscular Hemoglobin 28.7 pg (27.0-31.0); Mean Corpuscular Volume 85.9 fL (78.0-102.0); Platelet Count Result 28 K/mm3 (150-420); Red Blood Count 3.62 M/mm3 (4.20-5.40); Red Cell Distribution Width 16.8 % (11.6-14.4); White Blood Count 14.6 K/mm3 (4.8-10.8)
[2020-07-30 06:10] LABS: Anion Gap 11 mmol/L (8-16); Blood Urea Nitrogen 46 mg/dL (7-18); Calcium 8.4 mg/dL (8.5-10.1); Carbon Dioxide 26 mmol/L (21-32); Chloride 96 mmol/L (98-108); Estimated Glomerular Filt Rate 31; Glucose 107 mg/dL (70-99); NT Pro B Type Natriuretic Pept 17384 pg/mL (0-450); Osmolality Calculated 287 mOsm/kg (285-295); Potassium 3.8 mmol/L (3.5-5.1); Sodium 133 mmol/L (136-145)
[2020-07-30] MEDS: LORazepam (*CRX) 0.5 MG TABLET PO (07:58)
[2020-07-30] MEDS: ACYCLOVIR 200 MG CAPSULE 400 MG PO (09:11)
[2020-07-30] MEDS: FUROSEMIDE INJ 40 MG/4 ML VIAL 20 MG IV PUSH (09:12)
[2020-07-30] MEDS: TORSEMIDE 20 MG TABLET 5 MG PO (09:13)
[2020-07-30] MEDS: traMADol HCL (*CRX) 50 MG TABLET PO (09:13)
[2020-07-30] MEDS: RANOLAZINE 500 MG TAB.ER.12H PO (09:14)
[2020-07-30] MEDS: METOPROLOL TARTRATE 12.5 MG TABLET PO (09:15)
[2020-07-30] MEDS: levoFLOXacin 250 MG/D5W 50 ML 250 MG/50 ML BAG 50 MG IVPB (11:17)
--- NOTE | 2020-07-30 11:19 | P.DS_ITS ---
DS: Admitting Diagnosis Admitting Diagnosis Admitting Diagnosis: Congestive heart failure DS: Discharge Diagnosis Discharge Diagnosis (1) Acute exacerbation of CHF (congestive heart failure): Qualifiers: Heart failure type: diastolic Qualified Code(s): I50.33 - Acute on chronic diastolic (congestive) heart failure Code(s): I50.9 - Heart failure, unspecified Status: Acute Assessment and Plan: * BNP 31141--> >40750>85596>28921 * Chest x-ray indicates congestive heart failure * Patient received Lasix 80 mg in ED in addition 80 mg and daily torsemide. Her Lasix dose has been decreased due to worsening renal function. She will discharge home with torsemide 20 mg daily * Repeat CMP in 3 days with results going to her primary care physician Dr. Hayes (2) COPD (chronic obstructive pulmonary disease): Qualifiers: COPD type: unspecified COPD Qualified Code(s): J44.9 - Chronic obstructive pulmonary disease, unspecified Code(s): J44.9 - Chronic obstructive pulmonary disease, unspecified Status: Acute Assessment and Plan: * Continue nebulizer and inhalers * Continue * Patient oxygen level stable with the use of 2 L nasal cannula which she uses at home (3) Chronic progressive renal failure, stage 3 (moderate): Code(s): N18.30 - Chronic kidney disease, stage 3 unspecified Status: Acute Assessment and Plan: * Patient creatinine 1.27>1.41>1.49>1.63 Patient baseline appears to be at 1.15-1.45 * Patient ad compositor at [facility] Dr. Hayes * We will renal dose medication * Avoid nephrotoxic agent * We will continue to monitor (4) Mitral regurgitation: Qualifiers: Cardiac valve disease etiology: etiology unspecified Qualified Code(s): I34.0 - Nonrheumatic mitral (valve) insufficiency Code(s): I34.0 - Nonrheumatic mitral (valve) insufficiency Status: Acute Assessment and Plan: * Follow-up with weapons and tactics instructor (5) Coronary artery disease: Qualifiers: Coronary Disease-Associated Artery/Lesion type: unspecified vessel or lesion type [place] vs. transplanted heart: [place] heart Associated angina: without angina Qualified Code(s): I25.10 - Atherosclerotic heart disease of [place] coronary artery without angina pectoris Code(s): I25.10 - Atherosclerotic heart disease of [place] coronary artery without angina pectoris Status: Acute Assessment and Plan: * Continue Plavix (6) Myelofibrosis: Code(s): D75.81 - Myelofibrosis Status: Acute Assessment and Plan: * Patient is followed by Dr. Song * Contacted Dr. Erika Lepe for recommendations * Patient receives weekly PRBC transfusions last one 07/27/2020 * CBC in 3 days with results going to Dr. Song * Recommended the patient be placed on antiviral which she was on before admission, Levaquin, Zarxio (7) Leukocytopenia: Code(s): D72.819 - Decreased white blood cell count, unspecified Status: Acute Assessment and Plan: * Resolved * Possibly secondary to myelofibrosis * On admission WBCs 5.4>0.6>0.6>0.4>14.6 * Contacted Dr. Song for recommendations and or possible transfer (8) Thrombocytopenia: Code(s): D69.6 - Thrombocytopenia, unspecified Status: Acute Assessment and Plan: * Etiology unknown * Platelets on [id number]>23>26 >28 * Will possibly * Spoke with Dr. Song, ordered platelets immunoglobulin lab test. We will transfuse for platelets under 20. Patient will need to follow with Dr. Song on discharge DS: S
--- NOTE | 2020-07-30 11:19 | PM.DS ---
DS: Admitting Diagnosis Admitting Diagnosis Admitting Diagnosis: Congestive heart failure DS: Discharge Diagnosis Discharge Diagnosis (1) Acute exacerbation of CHF (congestive heart failure): Qualifiers: Heart failure type: diastolic Qualified Code(s): I50.33 - Acute on chronic diastolic (congestive) heart failure Code(s): I50.9 - Heart failure, unspecified Status: Acute Assessment and Plan: BNP 88498--> >05965>13700>00023 Chest x-ray indicates congestive heart failure Patient received Lasix 80 mg in ED in addition 80 mg and daily torsemide. Her Lasix dose has been decreased due to worsening renal function. She will discharge home with torsemide 20 mg daily Repeat CMP in 3 days with results going to her primary care physician Dr. Hayes (2) COPD (chronic obstructive pulmonary disease): Qualifiers: COPD type: unspecified COPD Qualified Code(s): J44.9 - Chronic obstructive pulmonary disease, unspecified Code(s): J44.9 - Chronic obstructive pulmonary disease, unspecified Status: Acute Assessment and Plan: Continue nebulizer and inhalers Continue Patient oxygen level stable with the use of 2 L nasal cannula which she uses at home (3) Chronic progressive renal failure, stage 3 (moderate): Code(s): N18.30 - Chronic kidney disease, stage 3 unspecified Status: Acute Assessment and Plan: Patient creatinine 1.27>1.41>1.49>1.63 Patient baseline appears to be at 1.15-1.45 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 Hayes We will renal dose medication Avoid nephrotoxic agent We will continue to monitor (4) Mitral regurgitation: Qualifiers: Cardiac valve disease etiology: etiology unspecified Qualified Code(s): I34.0 - Nonrheumatic mitral (valve) insufficiency Code(s): I34.0 - Nonrheumatic mitral (valve) insufficiency Status: Acute Assessment and Plan: Follow-up with horticultural worker (5) Coronary artery disease: Qualifiers: Coronary Disease-Associated Artery/Lesion type: unspecified vessel or lesion type [place] vs. transplanted heart: [place] heart Associated angina: without angina Qualified Code(s): I25.10 - Atherosclerotic heart disease of [place] coronary artery without angina pectoris Code(s): I25.10 - Atherosclerotic heart disease of [place] coronary artery without angina pectoris Status: Acute Assessment and Plan: Continue Plavix (6) Myelofibrosis: Code(s): D75.81 - Myelofibrosis Status: Acute Assessment and Plan: Patient is followed by Dr. Song Contacted Dr. Erika Lepe for recommendations Patient receives weekly PRBC transfusions last one 07/27/2020 CBC in 3 days with results going to Dr. Song Recommended the patient be placed on antiviral which she was on before admission, Levaquin, Zarxio (7) Leukocytopenia: Code(s): D72.819 - Decreased white blood cell count, unspecified Status: Acute Assessment and Plan: Resolved Possibly secondary to myelofibrosis On admission WBCs 5.4>0.6>0.6>0.4>14.[address] Song for recommendations and or possible transfer (8) Thrombocytopenia: Code(s): D69.6 - Thrombocytopenia, unspecified Status: Acute Assessment and Plan: Etiology unknown Platelets on [id number]>23>26 >28 Will possibly Spoke with Dr. Song, ordered platelets immunoglobulin lab test. We will transfuse for platelets under 20. Patient will need to follow with Dr. Song on discharge DS: Summary Hospital Course Reason for hospitalization: Shortness of breath Hospital Course: this is a 74-year-old female that presented to ED department via EMS due to increased shortness of breath. Patient has a past medical history of stage III chronic kidney failure, COPD, CAD, congestive heart failure, mutual regurgitation, myelofibrosis and MD. According to patient she receives a blood transfusion weekly due to her
[2020-07-30] MEDS: FILGRASTIM 300 MCG/ML VIAL SUB-Q (13:25)
--- NOTE | 2020-07-30 13:30 | PC.NURSE ---
Pharmacist from [facility] in [place] called, stated that they do not have Zarxio in stock.
--- NOTE | 2020-07-30 13:35 | PC.NURSE ---
Spoke with TELECOMMUNICATIONS ADMINISTRATOR Ty about Zarxio. States it is okay for patient to get injection in 1-2 days when pharmacy has medication. Patient and state they do not want the Zarxio because she will get it at her appt on saturday with her Oncologist.
--- NOTE | 2020-07-30 14:33 | PC.NURSE ---
Pt discharged to home. Spouse present during discharge instructions. Medications reviewed as well as lab orders and fluid restriction. All personal property returned to pt.
[2020-08-01 16:27] LABS: Platelet Antibody, Direct IgG POSITIVE (NEGATIVE)
--- NOTE | 2020-08-02 14:43 | PC.NURSE ---
Pt and state they received and understood the discharge instructions. Pt also states I had very, very nice treatment while I was there .
== END 2020-07-30 13:45 | disposition home or self-care (01) | DRG 292 ==
LOC: CHSED 20:04 → CHS2ND 20:05
PROVIDERS: Nurse Practitioner Family; Admitting Provider Emergency Medicine; Emergency Provider Emergency Medicine; PCP Internal Medicine Geriatric Medicine; Visit Provider Nurse Practitioner
DX: I50.33 Acute on chronic diastolic (congestive) heart failure (principal); D75.81 Myelofibrosis; D70.9 Neutropenia, unspecified; D69.6 Thrombocytopenia, unspecified; N18.30 Chronic kidney disease, stage 3 unspecified; I34.0 Nonrheumatic mitral (valve) insufficiency; Z95.5 Presence of coronary angioplasty implant and graft; I25.2 Old myocardial infarction
CPT/HCPCS: 36415; 71045; 80048; 80053; 81001; 83735; 83880; 84484; 85025; 85027; 85055; 85610; 86023; 93005; 94003; 94640; 96365; 96374; 96375; 96376; 99285; A9270; G0378; J1442; J1940; J1956; J2920; J2930; J3475

== ENCOUNTER 2020-08-02 09:26 | Outpatient (CLI) | payer MEDICARE, SELFPAY ==
[2020-08-02 10:11] LABS: Hematocrit 30.3 % (37.0-47.0); Hemoglobin 9.8 g/dL (12.0-15.0); Immature Platelet Fraction Pct 8.6 % (0.9-11.2); Mean Corpuscular HGB Conc 32.3 g/dl (32-36); Mean Corpuscular Hemoglobin 28.7 pg (26-34); Mean Corpuscular Volume 88.6 fl (80-100); Mean Platelet Volume 10.5 fl (7.4-10.4); Platelet Count Result 27 k/mm3 (150-375); Red Blood Count 3.42 M/mm3 (4.2-5.4); Red Cell Distribution Width 17.2 % (11.5-14.5); White Blood Count 11.7 K/mm3 (4.5-10.0)
[2020-08-02 10:19] LABS: Band Neutrophils Percent 5 % (0-6); Lymphocytes Absolute Manual 0.11 K/mm3 (1.1-4.5); Metamyelocytes Percent 3 %; Monocytes Absolute Manual 1.75 K/mm3 (0.1-0.90); Monocytes Percent Manual 15 % (3-9); Myelocytes Percent 1 %; Neutrophils Absolute Manual 9.36 K/mm3 (1.7-7.2); Neutrophils Percent Manual 75 % (46-73); Platelet Estimate Decreased (Adequate); Total Cells Counted 100
[2020-08-02 10:20] LABS: Hypochromasia 1+ (NORMAL); Ovalocytes 1+ (NORMAL)
[2020-08-02 10:21] LABS: Anisocytosis 2+ (NORMAL); Poikilocytosis 1+ (NORMAL)
== END 2020-08-02 09:27 | disposition home or self-care (01) ==
PROVIDERS: PCP Internal Medicine Geriatric Medicine; Visit Provider Internal Medicine Hematology & Oncology
DX: D75.81 Myelofibrosis (principal)
CPT/HCPCS: 36415; 85025; 85055

== ENCOUNTER 2020-08-03 10:09 | Outpatient (CLI) | payer MEDICARE, SELFPAY ==
[2020-08-03 11:15] LABS: Alanine Aminotransferase 17 U/L (14-59); Albumin Level 3.7 g/dL (3.4-5.0); Alkaline Phosphatase 92 U/L (46-116); Anion Gap 12 mmol/L (8-16); Aspartate Amino Transferase 11 U/L (15-37); Bilirubin,Total 0.8 mg/dL (0.00-1.00); Blood Urea Nitrogen 40 mg/dL (7-18); Carbon Dioxide 25 mmol/L (21-32); Chloride 98 mmol/L (98-108); Estimated Glomerular Filt Rate 33; Glucose 128 mg/dL (70-99); Osmolality Calculated 291 mOsm/kg (285-295); Potassium 4.7 mmol/L (3.5-5.1); Sodium 135 mmol/L (136-145); Total Protein 5.9 g/dL (6.4-8.2)
== END 2020-08-03 10:10 | disposition home or self-care (01) ==
LOC: CHSLAB 10:10
PROVIDERS: PCP Internal Medicine Geriatric Medicine; Visit Provider Nurse Practitioner
DX: N18.30 Chronic kidney disease, stage 3 unspecified (principal); D70.9 Neutropenia, unspecified; D69.6 Thrombocytopenia, unspecified
CPT/HCPCS: 36415; 80053

== ENCOUNTER 2020-08-15 12:46 | Emergency (ER) | payer MEDICARE, SELFPAY ==
[2020-08-15] VITALS (11 sets, daily range): BP systolic 95–151; BP diastolic 25–87; PULSE 72–90; RESP 16–24; TEMP 36.2–37.4; O2SAT 95–100
--- NOTE | 2020-08-15 13:10 | ED.GENADULT ---
HPI - General Adult General Source: patient and family Mode of arrival: ambulatory Limitations: no limitations History of Present Illness HPI narrative: patient called by her doctor's office and told that her hemoglobin was extremely low at 5.6. Asked that she come to the emergency room for further evaluation. Patient complains about being short of breath when she exerts herself which is what happens when her hemoglobin gets low. She has a chronic history of anemia due to Stage 3 kidney failure. MD complaint: Anemia Onset (ago): hour(s) (2) Severity: moderate Associated symptoms: shortness of breath and weakness Treatments prior to arrival: none Related Data Home Medications Medication Instructions Recorded Confirmed albuterol sulfate 2.5 mg INHALATION QID PRN 12/15/19 08/15/20 bupropion HCl 150 mg PO DAILY 12/15/19 08/15/20 deferasirox [Jadenu] 360 mg PO DAILY 12/15/19 08/15/20 metoprolol tartrate 12.5 mg PO BID 12/15/19 08/15/20 omeprazole 20 mg PO DAILY 12/15/19 08/15/20 atorvastatin 10 mg PO DAILY 08/15/20 08/15/20 azelastine 137 mcg INTRANASAL Q12H 08/15/20 08/15/20 benzonatate 200 mg PO TID PRN 08/15/20 08/15/20 diclofenac sodium 2 g TOPICAL QID 08/15/20 08/15/20 fluticasone propionate 1 spray INTRANASAL BID 08/15/20 08/15/20 polyethylene glycol 3350 [Miralax] 17 g PO DAILY 08/15/20 08/15/20 tramadol 50 mg PO Q6H PRN 08/15/20 08/15/20 Allergies Allergy/AdvReac Type Severity Reaction Status Date / Time diazepam Allergy Unknown Unknown Verified 12/15/19 19:02 doxycycline Allergy Unknown Unknown Verified 12/15/19 19:02 Iodinated Contrast Media Allergy Unknown Unknown Verified 12/15/19 19:02 shellfish derived Allergy Unknown Unknown Verified 12/15/19 19:02 Sulfa (Sulfonamide Allergy Unknown Unknown Verified 12/15/19 19:02 Antibiotics) Review of Systems Review of Systems: All systems reviewed & are unremarkable except as noted in HPI and below Constitutional: Constitutional: Denies chills and Denies fever(s) PMFSH Past Medical History Medical History Chronic progressive renal failure, stage 3 (moderate) COPD (chronic obstructive pulmonary disease) Coronary artery disease Diastolic congestive heart failure Mitral regurgitation Myelofibrosis Myocardial infarction Surgical History Surgical History S/p bilateral myringotomy with tube placement Stented coronary artery Social History Social History Smoking packs per day: 1 Smoking cigarettes per day: 20.0 Smoking status: Former smoker Tobacco type: cigarettes Second hand tobacco smoke exposure: No Alcohol intake: current Drinks per week: 1 Substance use: current Substance use type: other Other substance usage details: Tramadol BID Last use: 07/27/20 Gender identity (if verbalized by the patient): Female Spiritual care concerns: No Exam Const: General: no acute distress and ill appearing chronically Nutritional Appearance: well nourished Orientation/consciousness: patient oriented x3 HENMT: Head: normal to inspection Ears: external ears normal Face and sinus: normal facial exam Mouth: Yes moist mucous membranes Eyes: Conjunctivae: conjunctival abnormality bilateral pallor Pupils: Equal, round and reactive pupils present Neck: Neck: normal visual inspection Resp: Effort & Inspection: normal respiratory effort Auscultation: clear to auscultation bilaterally Cardio: Rate: regular rate Rhythm: regular rhythm GI: GI Palp: Yes Soft to palpation and No Tenderness to palpation present (GI) Auscultation: normal bowel sounds Back/Spine/Pelvis: Cervical Spine: cervical ROM normal Thoracic/Lumbar Spine: thoraco-lumbar ROM normal Skin: General skin exam: pallor Rashes: no rashes Neuro: General: patient oriented x3, moves all extremities and no focal motor deficits
[2020-08-15 13:26] LABS: Immature Platelet Fraction Pct 7.8 % (1.0-7.0); Mean Corpuscular HGB Conc 31.9 g/dL (32.0-36.0); Mean Corpuscular Hemoglobin 28.8 pg (27.0-31.0); Mean Corpuscular Volume 90.2 fL (78.0-102.0); Mean Platelet Volume 12.5 fl (9.2-11.8); Red Blood Count 1.84 M/mm3 (4.20-5.40); Red Cell Distribution Width 17.4 % (11.6-14.4); White Blood Count 3.4 K/mm3 (4.8-10.8)
[2020-08-15 13:34] LABS: Anion Gap 11 mmol/L (8-16); Blood Urea Nitrogen 40 mg/dL (7-18); Calcium 8.3 mg/dL (8.5-10.1); Carbon Dioxide 22 mmol/L (21-32); Chloride 102 mmol/L (98-108); Estimated Glomerular Filt Rate 37; Glucose 126 mg/dL (70-99); Osmolality Calculated 291 mOsm/kg (285-295); Sodium 135 mmol/L (136-145)
[2020-08-15 13:38] LABS: INR 1.1; Partial Thromboplastin Time 76.6 SEC (23.90-30.70); Prothrombin Time 11.4 Seconds (9.50-12.10)
[2020-08-15 13:42] LABS: Hematocrit 16.6 % (35.0-42.0); Hemoglobin 5.3 g/dL (11.7-13.8); Platelet Count Result 24 K/mm3 (150-420)
[2020-08-15 13:53] LABS: Band Neutrophils Percent 0 % (0-6); Eosinophils Absolute Manual 0.03 K/mm3 (0.02-0.5); Eosinophils Percent Manual 1 % (1-6); Lymphocytes Absolute Manual 0.51 K/mm3 (1.1-4.5); Lymphocytes Percent Manual 15 % (18-44); Monocytes Absolute Manual 2.04 K/mm3 (0.1-0.90); Monocytes Percent Manual 60 % (3-9); Neutrophils Absolute Manual 0.81 K/mm3 (1.7-7.2); Neutrophils Percent Manual 24 % (46-73); Platelet Estimate Increased (Adequate); Smudge Cells FEW; Tear Drop Cells 1+ (NORMAL); Total Cells Counted 100
[2020-08-15 13:54] LABS: Anisocytosis 3+ (NORMAL)
--- NOTE | 2020-08-15 13:55 | PC.NURSE ---
PT IS GOING TO ROOM 203 FOR ER HOLD TO RECEIVE BLOOD TRANSFUSION
[2020-08-15] MEDS: SODIUM CHLORIDE 0.9% IV 250 ML 30 ML IV CONT (14:40)
[2020-08-15 17:45] LABS: Hematocrit 21.5 % (35.0-42.0)
[2020-08-15 17:46] LABS: Hemoglobin 6.7 g/dL (11.7-13.8)
[2020-08-15] MEDS: FUROSEMIDE INJ 40 MG/4 ML VIAL 10 MG IV PUSH (18:25)
--- NOTE | 2020-08-15 18:55 | PC.NURSE ---
Patient tolerating blood transfusion well via port. Patient assisted to/from bedside commode to urinate. O2 on @ 3.5 lpm/nc. No distress noted. left for a while and will be returning. Call light in reach.
[2020-08-15] MEDS: ACETAMINOPHEN 500 MG TABLET PO (19:15)
--- NOTE | 2020-08-15 21:15 | PC.NURSE ---
Patient continues to tolerate transfusion well via port. @ bedside. No distress noted. Call light in reach.
--- NOTE | 2020-08-15 21:25 | PC.NURSE ---
Blood transfusion finished. NS running. Lab notified of when to draw labs. Patient tolerated transfusion well. Call light in reach.
[2020-08-15] MEDS: FUROSEMIDE INJ 40 MG/4 ML VIAL 20 MG IV PUSH (21:57)
[2020-08-15 21:58] LABS: Hematocrit 26.3 % (35.0-42.0); Hemoglobin 8.3 g/dL (11.7-13.8)
--- NOTE | 2020-08-15 22:25 | PC.NURSE ---
Lab results given to patient and her . Patient assisted to bedside commode and then to wheelchair and out to car. Patient stood and got into car by herself. No distress noted.
== END 2020-08-15 22:25 | disposition home or self-care (01) ==
LOC: CHSED 12:49 → CHS2ND 13:50
PROVIDERS: Emergency Provider Emergency Medicine; PCP Internal Medicine Geriatric Medicine
DX: N18.30 Chronic kidney disease, stage 3 unspecified (principal); D63.1 Anemia in chronic kidney disease; J44.9 Chronic obstructive pulmonary disease, unspecified; I25.10 Atherosclerotic heart disease of native coronary artery without angina pectoris; I25.2 Old myocardial infarction; Z87.891 Personal history of nicotine dependence; D75.81 Myelofibrosis
CPT/HCPCS: 36415; 36430; 80048; 85014; 85018; 85025; 85055; 85610; 85730; 86850; 86900; 86901; 86920; 96361; 96374; 96376; 99284; 99285; J1940; J7050; P9016

== ENCOUNTER 2020-08-18 09:09 | Outpatient (CLI) | payer MEDICARE, SELFPAY ==
[2020-08-18 09:56] LABS: Hematocrit 22.6 % (35.0-42.0); Hemoglobin 7.2 g/dL (11.7-13.8); Immature Platelet Fraction Pct 7.9 % (1.0-7.0); Mean Corpuscular HGB Conc 31.9 g/dL (32.0-36.0); Mean Corpuscular Hemoglobin 28.3 pg (27.0-31.0); Red Blood Count 2.54 M/mm3 (4.20-5.40); Red Cell Distribution Width 17.9 % (11.6-14.4); White Blood Count 1.6 K/mm3 (4.8-10.8)
[2020-08-18 10:29] LABS: Platelet Count Result 18 K/mm3 (150-420)
[2020-08-18 10:31] LABS: Band Neutrophils Percent 0 % (0-6); Basophils Absolute Manual 0.01 K/mm3 (0-0.1); Basophils Percent Manual 1 % (0-1); Eosinophils Percent Manual 0 % (1-6); Lymphocytes Absolute Manual 0.33 K/mm3 (1.1-4.5); Lymphocytes Percent Manual 21 % (18-44); Monocytes Absolute Manual 0.73 K/mm3 (0.1-0.90); Monocytes Percent Manual 46 % (3-9); Neutrophils Absolute Manual 0.51 K/mm3 (1.7-7.2); Neutrophils Percent Manual 32 % (46-73); Platelet Estimate Decreased (Adequate); Total Cells Counted 100
[2020-08-18 14:26] LABS: Add Urine Microscopic? YES; Appearance Urine Sl Cloudy (Clear); Bilirubin Urine Negative (Negative); Blood Urine Negative (Negative); Color Urine Yellow (Yellow); Glucose Urine UA Negative (Negative); Ketones Urine Negative (Negative); Leukocyte Esterase Ur Trace (Negative); Nitrate Urine Negative (Negative); Protein Urine Trace (Negative); Urobilinogen Urine 0.2 mg/dL (0.2-1.0)
[2020-08-18 14:30] LABS: Bacteria Urine 4+ /hpf; RBC Urine 0-2 /hpf (0-2); Squamous Epithelial Cell Urine Moderate /hpf (Few); WBC Urine 16-20 /hpf (0-3)
== END 2020-08-18 09:10 | disposition home or self-care (01) ==
LOC: CHSLAB 09:11
PROVIDERS: PCP Internal Medicine Geriatric Medicine; Visit Provider Internal Medicine Geriatric Medicine
DX: D75.81 Myelofibrosis (principal); R30.0 Dysuria
CPT/HCPCS: 36415; 81001; 85025; 85055; 87077; 87086; 87088; 87186

== ENCOUNTER 2020-08-27 08:54 | Inpatient (IN) | payer MEDICARE, SELFPAY ==
[2020-08-27] VITALS (22 sets, daily range): BP systolic 91–132; BP diastolic 46–75; PULSE 59–91; RESP 18–22; TEMP 36.3–37.3; O2SAT 94–100; BMI 19.3
--- NOTE | ~2020-08-27 | XR_ITS ---
EXAMINATION: XR chest 1V portable INDICATION: Shortness of breath TECHNIQUE: Portable AP chest at 0944 hours COMPARISON: 07/27/2020 FINDINGS: There are persistent airspace opacities of the left lung base. Small pleural effusions are present. There is no pneumothorax. A left internal jugular Port-A-Cath ends with its tip in the dista l superior vena cava. 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 IMPRESSION: 1. Left basilar airspace opacities, consistent with atelectasis versus pneumonia. 2. Small pleural effusions. Reviewed, dictated and finalized at location A. IMPRESSION: 1. Left basilar airspace opacities, consistent with atelectasis versus pneumoni a. 2. Small pleural effusions.
--- NOTE | ~2020-08-27 | XR_ITS ---
EXAMINATION: XR chest 2V DATE: 08/30/2020 12:45 INDICATION: Shortness of breath. TECHNIQUE: Frontal and lateral views of the chest were obtained. COMPARISON: Chest single view 08/27/2020, CT abdomen and pelvis 10/09/2018 FINDINGS: There is a moderate-sized left pleural effusion. There are airspace opacities at left lung base. No pneumothorax. Cardiomegaly is noted. There is a left internal jugular port with tip in super ior vena cava. IMPRESSION: 1. Moderate-sized left pleural effusion with interval improvement. 2. Airspace opacities at left lung base, consistent with atelectasis or less likely pneumonia. 3. Cardiomegaly. Reviewed, dictated and finalized at location A. IMPRESSION: 1. Moderate-sized left pleural effusion with interval improvement. 2. Airspace opacities at left lung base, consistent with atelectasis or less li patel pneumonia. 3. Cardiomegaly.
--- NOTE | ~2020-08-27 | NM_ITS ---
EXAMINATION: NM pulmonary perfusion DATE: 08/30/2020 12:56 INDICATION: Shortness of breath. TECHNIQUE: 5.6 mCi Tc-99m MAA was administered intravenously for perfusion images. Scintigraphic michele ges of the chest were obtained. COMPARISON: Chest 2 views 08/30/2020 FINDINGS: Perfusion images show large defects in left lower lobe and lingula matched to a pleural effusion on r adiographs. IMPRESSION: 1. Nondiagnostic (intermediate probability for pulmonary embolism). Reviewed, dictated and finalized at location A.
--- NOTE | 2020-08-27 09:23 | ECG_ITS ---
Measurements Intervals [place] Rate: P: MA: QRS: QRSD: T: QT: QTc: Interpretive Statements SINUS RHYTHM ST-T WAVE ABNORMALITY IN ANTEROLAT/HIGH LAT LEADS- CONSIDER ISCHEMIA ABNORMAL ECG Electronically Signed On 09-02-2020 10:34:48 CDT by Navarro Bliss D.O.
[2020-08-27 10:13] LABS: Immature Platelet Fraction Pct 6.5 % (1.0-7.0); Mean Corpuscular HGB Conc 32.1 g/dL (32.0-36.0); Mean Corpuscular Hemoglobin 27.9 pg (27.0-31.0); Mean Corpuscular Volume 86.9 fL (78.0-102.0); Platelet Count Result 50 K/mm3 (150-420); Red Blood Count 2.22 M/mm3 (4.20-5.40); Red Cell Distribution Width 18.5 % (11.6-14.4)
[2020-08-27 10:14] LABS: Hematocrit 19.3 % (35.0-42.0); Hemoglobin 6.2 g/dL (11.7-13.8); White Blood Count 1.1 K/mm3 (4.8-10.8)
[2020-08-27] MEDS: IPRATROPIUM 0.5 MG/ALBUTEROL SULFATE 2.5 MG AMPUL.NEB 3 ML INHALATION ×3 (10:14→23:51)
[2020-08-27] MEDS: methylPREDNISolone SOD SUCC 125 MG VIAL IV PUSH (10:14)
[2020-08-27 10:15] LABS: Partial Thromboplastin Time 37.7 SEC (23.90-30.70); Prothrombin Time 10.9 Seconds (9.50-12.10)
[2020-08-27] MEDS: SODIUM CHLORIDE 0.9% IV 500 ML 999 ML IV CONT (10:15)
[2020-08-27 10:19] LABS: D Dimer 0.86 mg/L (0.19-0.50)
[2020-08-27 10:28] LABS: Albumin Level 3.3 g/dL (3.4-5.0); Alkaline Phosphatase 93 U/L (46-116); Anion Gap 12 mmol/L (8-16); Aspartate Amino Transferase 10 U/L (15-37); Bilirubin,Total 1.1 mg/dL (0.00-1.00); Blood Urea Nitrogen 22 mg/dL (7-18); Calcium 8.3 mg/dL (8.5-10.1); Carbon Dioxide 23 mmol/L (21-32); Chloride 103 mmol/L (98-108); Estimated Glomerular Filt Rate 54; Glucose 102 mg/dL (70-99); Magnesium 1.8 mg/dL (1.8-2.4); NT Pro B Type Natriuretic Pept 13013 pg/mL (0-450); Osmolality Calculated 289 mOsm/kg (285-295); Potassium 4.2 mmol/L (3.5-5.1); Sodium 138 mmol/L (136-145); Total Protein 5.7 g/dL (6.4-8.2); Troponin I 13.3 ng/L (0.00-60.4)
--- NOTE | 2020-08-27 10:35 | ED.SOB ---
HPI - SOB/Dyspnea General Chief Complaint: Shortness of Breath/Dyspnea Stated Complaint: sob Source: patient and family Mode of arrival: ambulatory History of Present Illness HPI Narrative: this 74-year-old female presents with her with some shortness of breath, patient has a history of COPD has nebulizers at home that she used prior to arrival, patient with history of CHF and mild fibrosis and frequent blood transfusions. Patient presents with shortness of breath with exertion currently a nonsmoker quit approximately 20 years ago, there is no fever chills no abdominal pain no chest pain no nausea or vomiting. Patient's also reported the patient has a history of a GI bleed , and is scheduled for a follow-up with GI. MD elicited complaint: shortness of breath Pertinent past history: COPD and congestive heart failure Onset (ago): day(s) Context: occurred during exertion and anxiety Timing: constant Severity: moderate Exacerbating factors: exertion Relieving factors: oxygen and upright position Known history of: COPD and congestive heart failure Related Data Home Medications Medication Instructions Recorded Confirmed albuterol sulfate 2.5 mg INHALATION QID PRN 12/15/19 08/27/20 bupropion HCl 150 mg PO DAILY 12/15/19 08/27/20 deferasirox [Jadenu] 360 mg PO DAILY 12/15/19 08/27/20 metoprolol tartrate 12.5 mg PO BID 12/15/19 08/27/20 omeprazole 20 mg PO DAILY 12/15/19 08/27/20 atorvastatin 10 mg PO DAILY 08/15/20 08/27/20 azelastine 137 mcg INTRANASAL Q12H 08/15/20 08/27/20 benzonatate 200 mg PO TID PRN 08/15/20 08/27/20 diclofenac sodium 2 g TOPICAL QID 08/15/20 08/27/20 fluticasone propionate 1 spray INTRANASAL BID 08/15/20 08/27/20 polyethylene glycol 3350 [Miralax] 17 g PO DAILY PRN 08/15/20 08/27/20 tramadol 50 mg PO Q6H PRN 08/15/20 08/27/20 buspirone 15 mg PO BID 08/27/20 08/27/20 mirtazapine 7.5 mg PO DAILY 08/27/20 08/27/20 ondansetron HCl 4 mg PO PRN PRN 08/27/20 08/27/20 Allergies Allergy/AdvReac Type Severity Reaction Status Date / Time diazepam Allergy Unknown Unknown Verified 12/15/19 19:02 doxycycline Allergy Unknown Unknown Verified 12/15/19 19:02 Iodinated Contrast Media Allergy Unknown Unknown Verified 12/15/19 19:02 shellfish derived Allergy Unknown Unknown Verified 12/15/19 19:02 Sulfa (Sulfonamide Allergy Unknown Unknown Verified 12/15/19 19:02 Antibiotics) Review of Systems Review of Systems: All systems reviewed & are unremarkable except as noted in HPI and below PMFSH Past Medical History Medical History Chronic progressive renal failure, stage 3 (moderate) COPD (chronic obstructive pulmonary disease) Coronary artery disease Diastolic congestive heart failure Mitral regurgitation Myelofibrosis Myocardial infarction Surgical History Surgical History S/p bilateral myringotomy with tube placement Stented coronary artery Social History Social History Smoking packs per day: 1 Smoking cigarettes per day: 20.0 Smoking status: Former smoker Tobacco type: cigarettes Second hand tobacco smoke exposure: No Alcohol intake: current Drinks per week: 1 Substance use: current Substance use type: other Other substance usage details: Tramadol BID Last use: 07/27/20 Gender identity (if verbalized by the patient): Female Spiritual care concerns: No Exam Const: General: no acute distress and alert Orientation/consciousness: patient oriented x3 HENMT: Head: normal to inspection Eyes: Conjunctivae: conjunctivae normal Pupils: Equal, round and reactive pupils present EOM: EOMs intact bilaterally Direct Ophthalmoscopy: no photophobia Neck: Neck: normal visual inspection, no lymphadenopathy and no meningeal signs Chest: Chest palpation & inspection: normal inspection of the chest Resp: Effort
[2020-08-27 10:37] LABS: Band Neutrophils Percent 0 % (0-6); Basophils Percent Manual 0 % (0-1); Eosinophils Absolute Manual 0.01 K/mm3 (0.02-0.5); Eosinophils Percent Manual 1 % (1-6); Lymphocytes Absolute Manual 0.26 K/mm3 (1.1-4.5); Lymphocytes Percent Manual 24 % (18-44); Monocytes Absolute Manual 0.33 K/mm3 (0.1-0.90); Monocytes Percent Manual 30 % (3-9); Neutrophils Absolute Manual 0.49 K/mm3 (1.7-7.2); Neutrophils Percent Manual 45 % (46-73); Total Cells Counted 100
[2020-08-27 10:38] LABS: Alanine Aminotransferase 11 U/L (14-59); Anisocytosis 3+ (NORMAL); Platelet Estimate Decreased (Adequate)
[2020-08-27] MEDS: SODIUM CHLORIDE 0.9% IV 250 ML 30 ML IV CONT (11:57)
[2020-08-27] MEDS: methylPREDNISolone SOD SUCC 40 MG VIAL IV PUSH ×3 (12:00→23:50)
--- NOTE | 2020-08-27 13:28 | PM.IMHP ---
H&P: HPI History of Present Illness Date/Time: 08/27/20 13:28 this is a 74-year-old female that is well-known to our establishment and presented to emergency department with shortness of breath. Patient has a past medical history of chronic kidney disease stage III, COPD, CAD, congestive heart failure, mitral regurgitation, myelofibrosis continue supplementary oxygen, GI bleed and IA. Apparently patient has been feeling short of breath for the last couple of days she does take nebulizers at home she has been using schedule with no relief. Patient notes that usually when her hemoglobin drops she becomes short of breath. Her hemoglobin today was 6 she will be transfused with 2 units of PRBCs. her last infusion was last week on Saturday, she does get regular PRBCs transfusions and follows up with an actuarial technician oncologist. She also has an appointment with the GI specialist due to possible GI bleed. Vital signs 111/46, 76, 22, 98.1, 97% 4 L nasal cannula. WBC is 1.1 RBCs 2.22 hemoglobin 6.3 hematocrit 19.3, platelets 50, absolute neutrophils 0.49, INR 1.0, PTT 37.7, D-dimer 0.86, sodium 138, potassium 4.2, chloride 103, BUN 22, creatinine 1.0, GFR 54, glucose 102, lactic acid 1.0, magnesium 1.8, AST 10, ALT 11, [id number], UA positive for nitrates leukocyte esterase and bacteria. Patient being admitted for anemia, UTI, and pneumonia. The patient denies CP, palpitation, extremity numbness, lightheadedness, dizziness, constipation, diarrhea, chills, or fever. Chief Complaint: Shortness of breath Review of Systems Review of Systems: Narrative: A 14 organ system Review of Systems was performed and pertinent positives included in the HPI, otherwise remaining ROS is negative. All systems reviewed & are unremarkable except as noted in HPI and below PMFSH Past Medical History Medical History Chronic progressive renal failure, stage 3 (moderate) COPD (chronic obstructive pulmonary disease) Coronary artery disease Diastolic congestive heart failure Mitral regurgitation Myelofibrosis Myocardial infarction Surgical History Surgical History S/p bilateral myringotomy with tube placement Stented coronary artery Social History Social History Smoking packs per day: 1 Smoking cigarettes per day: 20.0 Smoking status: Former smoker Tobacco type: cigarettes Second hand tobacco smoke exposure: No Alcohol intake: current Drinks per week: 1 Substance use: current Substance use type: other Other substance usage details: Tramadol BID Last use: 07/27/20 Gender identity (if verbalized by the patient): Female Spiritual care concerns: No Meds Home Medications and Allergies Home Medications Medication Instructions Recorded Confirmed Type albuterol sulfate 2.5 mg INHALATION QID PRN 12/15/19 08/27/20 History bupropion HCl 150 mg PO DAILY 12/15/19 08/27/20 History deferasirox [Jadenu] 360 mg PO DAILY 12/15/19 08/27/20 History metoprolol tartrate 12.5 mg PO BID 12/15/19 08/27/20 History omeprazole 20 mg PO DAILY 12/15/19 08/27/20 History acyclovir 400 mg PO BID #15 cap 07/30/20 08/27/20 Rx torsemide 10 mg PO DAILY #0 tablet 07/30/20 08/27/20 Rx atorvastatin 10 mg PO DAILY 08/15/20 08/27/20 History azelastine 137 mcg INTRANASAL Q12H 08/15/20 08/27/20 History benzonatate 200 mg PO TID PRN 08/15/20 08/27/20 History diclofenac sodium 2 g TOPICAL QID 08/15/20 08/27/20 History fluticasone propionate 1 spray INTRANASAL BID 08/15/20 08/27/20 History polyethylene glycol 3350 [Miralax] 17 g PO DAILY PRN 08/15/20 08/27/20 History tramadol 50 mg PO Q6H PRN 08/15/20 08/27/20 History buspirone 15 mg PO BID 08/27/20 08/27/20 History mirtazapine 7.5 mg PO DAILY 08/27/20 08/27/20 History ondansetron HCl 4 mg PO PRN PRN 08/27/20 08/27/20 History Allergies Allergy/AdvReac Type Severity Reac
[2020-08-27 13:46] LABS: Add Urine Microscopic? YES; Appearance Urine Sl Cloudy (Clear); Bilirubin Urine Negative (Negative); Blood Urine Negative (Negative); Color Urine Light Yellow (Yellow); Glucose Urine UA Negative (Negative); Ketones Urine Negative (Negative); Leukocyte Esterase Ur 2+ LEU/UL (Negative); Nitrate Urine Positive (Negative); Protein Urine Negative (Negative); Urobilinogen Urine 0.2 mg/dL (0.2-1.0)
[2020-08-27 14:03] LABS: Bacteria Urine 4+ /hpf; RBC Urine 0-2 /hpf (0-2); Squamous Epithelial Cell Urine Few /hpf (Few); WBC Urine 31-50 /hpf (0-3)
[2020-08-27] MEDS: LORazepam INJ (*CRX) 2 MG/ML VIAL 0.5 MG IV PUSH (14:17)
--- NOTE | 2020-08-27 14:44 | PC.NURSE ---
Pt admitted to room 208 from the ER. Pt's spouse is with pt. Pt A/O x 3. O2 at 4L/NC pt SOB with any activity. No personal items left with pt. Spouse took pt's purse and I Pad home. Pt HGB 6.1 and will receive 2 units of PRC today.
[2020-08-27] MEDS: FUROSEMIDE INJ 40 MG/4 ML VIAL IV PUSH ×2 (16:29→22:51)
[2020-08-27 16:43] LABS: Hematocrit 26.2 % (35.0-42.0); Hemoglobin 8.6 g/dL (11.7-13.8)
[2020-08-27] MEDS: SACCHAROMYCES BOULARDII 250 MG CAPSULE PO (17:51)
[2020-08-27] MEDS: traMADol HCL (*CRX) 25 MG TABLET PO (21:31)
[2020-08-27 21:49] LABS: Hematocrit 30.7 % (35.0-42.0)
[2020-08-28] VITALS (10 sets, daily range): BP systolic 101–127; BP diastolic 47–61; PULSE 70–103; RESP 18–22; TEMP 36.4–36.8; O2SAT 94–100
[2020-08-28] MEDS: methylPREDNISolone SOD SUCC 40 MG VIAL IV PUSH ×3 (05:29→17:42)
[2020-08-28] MEDS: IPRATROPIUM 0.5 MG/ALBUTEROL SULFATE 2.5 MG AMPUL.NEB 3 ML INHALATION ×3 (05:30→17:55)
[2020-08-28 05:38] LABS: Hematocrit 29.2 % (35.0-42.0); Immature Platelet Fraction Pct 4.2 % (1.0-7.0); Mean Corpuscular HGB Conc 34.2 g/dL (32.0-36.0); Mean Corpuscular Hemoglobin 28.8 pg (27.0-31.0); Mean Corpuscular Volume 84.1 fL (78.0-102.0); Mean Platelet Volume 11.5 fl (9.2-11.8); Platelet Count Result 46 K/mm3 (150-420); Red Blood Count 3.47 M/mm3 (4.20-5.40); Red Cell Distribution Width 16.7 % (11.6-14.4)
[2020-08-28 05:53] LABS: Alanine Aminotransferase 12 U/L (14-59); Albumin Level 3.2 g/dL (3.4-5.0); Alkaline Phosphatase 94 U/L (46-116); Anion Gap 12 mmol/L (8-16); Aspartate Amino Transferase < 10 U/L (15-37); Bilirubin,Total 1.3 mg/dL (0.00-1.00); Blood Urea Nitrogen 22 mg/dL (7-18); Carbon Dioxide 24 mmol/L (21-32); Chloride 101 mmol/L (98-108); Estimated Glomerular Filt Rate 48; Glucose 140 mg/dL (70-99); Osmolality Calculated 289 mOsm/kg (285-295); Sodium 137 mmol/L (136-145); Total Protein 5.6 g/dL (6.4-8.2)
[2020-08-28 05:54] LABS: White Blood Count 0.7 K/mm3 (4.8-10.8)
--- NOTE | 2020-08-28 06:09 | PC.NURSE ---
Dr. Arevalo notified of pt's critical WBC of 0.7; No new orders at this time.
[2020-08-28 06:19] LABS: NT Pro B Type Natriuretic Pept 18617 pg/mL (0-450)
[2020-08-28 06:43] LABS: Band Neutrophils Percent 0 % (0-6); Basophils Absolute Manual 0.01 K/mm3 (0-0.1); Basophils Percent Manual 2 % (0-1); Eosinophils Percent Manual 0 % (1-6); Lymphocytes Absolute Manual 0.16 K/mm3 (1.1-4.5); Lymphocytes Percent Manual 23 % (18-44); Monocytes Absolute Manual 0.12 K/mm3 (0.1-0.90); Monocytes Percent Manual 18 % (3-9); Neutrophils Absolute Manual 0.39 K/mm3 (1.7-7.2); Neutrophils Percent Manual 57 % (46-73); Nucleated Red Blood Cells 3 %; Platelet Estimate Decreased (Adequate)
[2020-08-28] MEDS: SACCHAROMYCES BOULARDII 250 MG CAPSULE PO ×3 (09:47→17:42)
[2020-08-28] MEDS: FUROSEMIDE INJ 40 MG/4 ML VIAL IV PUSH (09:47)
[2020-08-28] MEDS: traMADol HCL (*CRX) 25 MG TABLET PO ×2 (09:47→19:33)
[2020-08-28] MEDS: LORazepam INJ (*CRX) 2 MG/ML VIAL 0.5 MG IV PUSH (10:01)
--- NOTE | 2020-08-28 10:40 | P.PN_ITS ---
Progress Note: A&P Assessment and Plan (1) Anemia: Qualifiers: Anemia type: unspecified type Qualified Code(s): D64.9 - Anemia, unspecified <YESSENIA Perkins - Last Filed: 08/28/20 10:49> Code(s): D64.9 - Anemia, unspecified <YESSENIA Perkins - Last Filed: 08/28/20 10:49> Status: Acute <YESSENIA Perkins - Last Filed: 08/28/20 10:49> Assessment and Plan: * Acute on chronic anemia likely multifactorial due to myelofibrosis versus GI blood loss * Patient received 2 units of PRBC * Per patient she has a history of vessels rubbing together that causes bleeding * Patient denies any hematochezia or hematuria * Chronic positive Hemoccult * Occult blood pending * Has appointment to follow-up with GI * EKG SR * Hemoglobin 6.2>8.6>10.0 <YESSENIA Perkins - Last Filed: 08/28/20 10:49> (2) Community acquired pneumonia: Qualifiers: Laterality: left Lung location: lower lobe of lung Qualified Code(s): J18.9 - Pneumonia, unspecified organism <YESSENIA Perkins - Last Filed: 08/28/20 10:49> Code(s): J18.9 - Pneumonia, unspecified organism <YESSENIA Perkins - Last Filed: 08/28/20 10:49> Status: Acute <YESSENIA Perkins - Last Filed: 08/28/20 10:49> Assessment and Plan: * Chest x-ray indicates pneumonia * Continue nebulizers and inhalers * Blood culture pending * Continue azithromycin and Rocephin day 1 * Continue Solu-Medrol * WBCs1.1 >0.7 patient afebrile * Continue supplementary oxygen <YESSENIA Perkins - Last Filed: 08/28/20 10:49> (3) Anxiety: Code(s): F41.9 - Anxiety disorder, unspecified <YESSENIA Perkins - Last Filed: 08/28/20 10:49> Status: Acute <Ty Hunter RN [employer]-C - Last Filed: 08/28/20 10:49> Assessment and Plan: * Started Ativan <Ty Hunter RN [employer] DEL[employer]ERY-C - Last Filed: 08/28/20 10:49> (4) Neutropenia: Qualifiers: Neutropenia type: unspecified Qualified Code(s): D70.9 - Neutropenia, unspecified <Ty Hunter RN [employer]-C - Last Filed: 08/28/20 10:49> Code(s): D70.9 - Neutropenia, unspecified <Ty Hunter RN [employer]-C - Last Filed: 08/28/20 10:49> Status: Acute <Ty Hunter RN [employer]-C - Last Filed: 08/28/20 10:49> Assessment and Plan: * 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 * Absolute neutrophil 0.49>0.39 * Will possibly have to place on neutropenic isolation <Ty Hunter RN [employer]ERY[employer]C - Last Filed: 08/28/20 10:49> (5) Thrombocytopenia: Code(s): D69.6 - Thrombocytopenia, unspecified <Ty Hunter RN [employer]C - Last Filed: 08/28/20 10:49> Status: Acute <Ty Hunter RN [employer] DEL[employer]-C - Last Filed: 08/28/20 10:49> Assessment and Plan: * 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 * Platelets 50 * We will transfuse for platelets under 20 * plt 50>46 <Ty Hunter RN [employer]C - Last Filed: 08/28/20 10:49> (6) Leukocytopenia: Qualifiers: Leukopenia type: unspecified Qualified Code(s): D72.819 - Decreased white blood cell count, unspecified <Ty Hunter RN [employer]-C - Last Filed: 08/28/20 10:49> Code(s): D72.819 - Decreased white blood cell count, unspecified <Ty Hunter RN [employer]-C - Last Filed: 08/28/20 10:49> Status: Acute <Ty Hunter RN [employer] DEL[employer]-C - Last Filed: 08/28/20 10:49> Assessment and Plan: * 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
--- NOTE | 2020-08-28 10:40 | WPDPN ---
Progress Note: A&P Assessment and Plan (1) Anemia: Qualifiers: Anemia type: unspecified type Qualified Code(s): D64.9 - Anemia, unspecified <YESSENIA Perkins - Last Filed: 08/28/20 10:49> Code(s): D64.9 - Anemia, unspecified <YESSENIA Perkins - Last Filed: 08/28/20 10:49> Status: Acute <Ty LuisYESSENIA Gaines - Last Filed: 08/28/20 10:49> Assessment and Plan: Acute on chronic anemia likely multifactorial due to myelofibrosis versus GI blood loss Patient received 2 units of PRBC Per patient she has a history of vessels rubbing together that causes bleeding Patient denies any hematochezia or hematuria Chronic positive Hemoccult Occult blood pending Has appointment to follow-up with GI EKG SR Hemoglobin 6.2>8.6>10.0 <YESSENIA Perkins - Last Filed: 08/28/20 10:49> (2) Community acquired pneumonia: Qualifiers: Laterality: left Lung location: lower lobe of lung Qualified Code(s): J18.9 - Pneumonia, unspecified organism <YESSENIA Perkins - Last Filed: 08/28/20 10:49> Code(s): J18.9 - Pneumonia, unspecified organism <YESSENIA Perkins - Last Filed: 08/28/20 10:49> Status: Acute <YESSENIA Perkins - Last Filed: 08/28/20 10:49> Assessment and Plan: Chest x-ray indicates pneumonia Continue nebulizers and inhalers Blood culture pending Continue azithromycin and Rocephin day 1 Continue Solu-Medrol WBCs1.1 >0.7 patient afebrile Continue supplementary oxygen <YESSENIA Perkins - Last Filed: 08/28/20 10:49> (3) Anxiety: Code(s): F41.9 - Anxiety disorder, unspecified <KARMA PerkinsC - Last Filed: 08/28/20 10:49> Status: Acute <YESSENIA Perkins - Last Filed: 08/28/20 10:49> Assessment and Plan: Started Ativan <Ty Hunter [employer] - Last Filed: 08/28/20 10:49> (4) Neutropenia: Qualifiers: Neutropenia type: unspecified Qualified Code(s): D70.9 - Neutropenia, unspecified <Ty Hunter [employer] - Last Filed: 08/28/20 10:49> Code(s): D70.9 - Neutropenia, unspecified <Shadida Erika Hunter [employer] - Last Filed: 08/28/20 10:49> Status: Acute <Sonda RJulio Hunter [employer] - Last Filed: 08/28/20 10:49> Assessment and Plan: Chronic Secondary to myelofibrosis Absolute neutrophil 0.49>0.39 Will possibly have to place on neutropenic isolation <Sonángel LuisJulio Hunter [employer] - Last Filed: 08/28/20 10:49> (5) Thrombocytopenia: Code(s): D69.6 - Thrombocytopenia, unspecified <Ty Hunter [employer] - Last Filed: 08/28/20 10:49> Status: Acute <Sonángel RJulio Hunter [employer] - Last Filed: 08/28/20 10:49> Assessment and Plan: Chronic Secondary to myelofibrosis Platelets 50 We will transfuse for platelets under 20 plt 50>46 <Ty SmithJulio Hunter [employer] - Last Filed: 08/28/20 10:49> (6) Leukocytopenia: Qualifiers: Leukopenia type: unspecified Qualified Code(s): D72.819 - Decreased white blood cell count, unspecified <Ty Hunter [employer] - Last Filed: 08/28/20 10:49> Code(s): D72.819 - Decreased white blood cell count, unspecified <Ty SmithJulio Hunter [employer] PR[employer] - Last Filed: 08/28/20 10:49> Status: Acute <Shadida RJulio Hunter [employer] - Last Filed: 08/28/20 10:49> Assessment and Plan: Chronic Secondary to myelofibrosis WBCs1.1>0.7 <Shadida LuisJulio Hunter [employer] - Last Filed: 08/28/20 10:49> (7) COPD (chronic obstructive pulmonary disease): Qualifiers: COPD type: unspecified COPD Qualified Code(s): J44.9 - Chronic obstructive pulmonary disease, unspecified <YESSENIA Perkins - Last Filed: 08/28/20 10:49> Code(s): J44.9 - Chronic obstructive pulmonary disease, unspecified <YESSENIA Perkins - Last Filed: 08/28/20 10:49> Status: Acute <So
[2020-08-28 12:45] LABS: Occult Blood Negative (Negative)
[2020-08-28] MEDS: NYSTATIN 100,000 UNITS/ML SUSP 5 ML ORAL.SUSP PO ×3 (14:09→21:21)
[2020-08-28] MEDS: LIDOCAINE HCL 2% VISC SOLN 15 ML UDC PO ×3 (14:09→21:21)
[2020-08-29] VITALS (11 sets, daily range): BP systolic 111–120; BP diastolic 55–60; PULSE 76–107; RESP 18–26; TEMP 36.3–36.8; O2SAT 95–100
[2020-08-29] MEDS: methylPREDNISolone SOD SUCC 40 MG VIAL IV PUSH ×4 (00:52→17:38)
[2020-08-29] MEDS: IPRATROPIUM 0.5 MG/ALBUTEROL SULFATE 2.5 MG AMPUL.NEB 3 ML INHALATION ×4 (00:52→18:22)
[2020-08-29 05:18] LABS: Hemoglobin 9.6 g/dL (11.7-13.8); Mean Corpuscular HGB Conc 34.3 g/dL (32.0-36.0); Mean Corpuscular Hemoglobin 29.4 pg (27.0-31.0); Mean Corpuscular Volume 85.9 fL (78.0-102.0); Mean Platelet Volume 10.7 fl (9.2-11.8); Platelet Count Result 36 K/mm3 (150-420); Red Blood Count 3.26 M/mm3 (4.20-5.40); Red Cell Distribution Width 17.4 % (11.6-14.4)
[2020-08-29 05:21] LABS: White Blood Count 0.9 K/mm3 (4.8-10.8)
[2020-08-29 05:30] LABS: Alanine Aminotransferase 10 U/L (14-59); Albumin Level 3.3 g/dL (3.4-5.0); Alkaline Phosphatase 90 U/L (46-116); Anion Gap 10 mmol/L (8-16); Aspartate Amino Transferase < 10 U/L (15-37); Bilirubin,Total 0.7 mg/dL (0.00-1.00); Blood Urea Nitrogen 22 mg/dL (7-18); Calcium 8.4 mg/dL (8.5-10.1); Carbon Dioxide 26 mmol/L (21-32); Chloride 103 mmol/L (98-108); Estimated Glomerular Filt Rate 49; Glucose 147 mg/dL (70-99); Osmolality Calculated 294 mOsm/kg (285-295); Potassium 4.5 mmol/L (3.5-5.1); Sodium 139 mmol/L (136-145); Total Protein 5.5 g/dL (6.4-8.2)
--- NOTE | 2020-08-29 06:03 | PC.NURSE ---
Dr. Navas notified of pt's critical WBC of 0.9; No new orders at this time.
[2020-08-29] MEDS: LORazepam INJ (*CRX) 2 MG/ML VIAL 0.5 MG IV PUSH ×2 (07:52→18:50)
[2020-08-29] MEDS: traMADol HCL (*CRX) 25 MG TABLET PO ×2 (07:55→21:11)
[2020-08-29] MEDS: NYSTATIN 100,000 UNITS/ML SUSP 5 ML ORAL.SUSP PO ×4 (07:56→20:57)
--- NOTE | 2020-08-29 08:17 | P.PN_ITS ---
Progress Note: A&P Assessment and Plan (1) Anemia: Qualifiers: Anemia type: unspecified type Qualified Code(s): D64.9 - Anemia, unspecified Code(s): D64.9 - Anemia, unspecified Status: Acute Assessment and Plan: * Acute on chronic anemia likely multifactorial due to myelofibrosis versus GI blood loss * Patient received 2 units of PRBC * Per patient she has a history of vessels rubbing together that causes bleeding * Patient denies any hematochezia or hematuria * Chronic positive Hemoccult * Occult blood negative * Has appointment to follow-up with GI * EKG SR * Hemoglobin 6.2>8.6>10.0>9.6 (2) Community acquired pneumonia: Qualifiers: Laterality: left Lung location: lower lobe of lung Qualified Code(s): J18.9 - Pneumonia, unspecified organism Code(s): J18.9 - Pneumonia, unspecified organism Status: Acute Assessment and Plan: * Chest x-ray indicates pneumonia * Continue nebulizers and inhalers * Blood culture pending * Continue azithromycin and Rocephin day 3 * Continue Solu-Medrol * WBCs1.1 >0.7 >0.9patient afebrile * Continue supplementary oxygen (3) Anxiety: Code(s): F41.9 - Anxiety disorder, unspecified Status: Acute Assessment and Plan: * Started Ativan (4) Neutropenia: Qualifiers: Neutropenia type: unspecified Qualified Code(s): D70.9 - Neutropenia, unspecified Code(s): D70.9 - Neutropenia, unspecified Status: Acute Assessment and Plan: * 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 * Absolute neutrophil 0.49>0.39 * Will possibly have to place on neutropenic isolation (5) Thrombocytopenia: Code(s): D69.6 - Thrombocytopenia, unspecified Status: Acute Assessment and Plan: * 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 * Platelets 50>36 * We will transfuse for platelets under 20 * plt 50>46 (6) Leukocytopenia: Qualifiers: Leukopenia type: unspecified Qualified Code(s): D72.819 - Decreased white blood cell count, unspecified Code(s): D72.819 - Decreased white blood cell count, unspecified Status: Acute Assessment and Plan: * 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 * WBCs1.1>0.7 (7) COPD (chronic obstructive pulmonary disease): Qualifiers: COPD type: unspecified COPD Qualified Code(s): J44.9 - Chronic obstructive pulmonary disease, unspecified Code(s): J44.9 - Chronic obstructive pulmonary disease, unspecified Status: Acute Assessment and Plan: * Continue nebulizer and inhalers * Supplementary oxygen (8) Chronic progressive renal failure, stage 3 (moderate): Code(s): N18.30 - Chronic kidney disease, stage 3 unspecified Status: Acute Assessment and Plan: * Continue Plavix (9) Coronary artery disease: Qualifiers: Coronary Disease-Associated Artery/Lesion type: unspecified vessel or lesion type [place] vs. transplanted heart: [place] heart Associated angina: without angina Qualified Code(s): I25.10 - Atherosclerotic heart disease of [place] coronary artery without angina pectoris Code(s): I25.10 - Atherosclerotic heart disease of [place] coronary artery without angina pectoris Status: Acute Assessment and Plan: * Stent placement September 29, 2018 to the proximal circumflex due to 99% stenosis (10) Diastolic congestive heart failure: Qualifiers: Heart failure chronicity: chronic Qualified Code(s): I50.32 - Chronic diastolic (congestive) heart failure
--- NOTE | 2020-08-29 08:17 | WPDPN ---
Progress Note: A&P Assessment and Plan (1) Anemia: Qualifiers: Anemia type: unspecified type Qualified Code(s): D64.9 - Anemia, unspecified Code(s): D64.9 - Anemia, unspecified Status: Acute Assessment and Plan: Acute on chronic anemia likely multifactorial due to myelofibrosis versus GI blood loss Patient received 2 units of PRBC Per patient she has a history of vessels rubbing together that causes bleeding Patient denies any hematochezia or hematuria Chronic positive Hemoccult Occult blood negative Has appointment to follow-up with GI EKG SR Hemoglobin 6.2>8.6>10.0>9.6 (2) Community acquired pneumonia: Qualifiers: Laterality: left Lung location: lower lobe of lung Qualified Code(s): J18.9 - Pneumonia, unspecified organism Code(s): J18.9 - Pneumonia, unspecified organism Status: Acute Assessment and Plan: Chest x-ray indicates pneumonia Continue nebulizers and inhalers Blood culture pending Continue azithromycin and Rocephin day 3 Continue Solu-Medrol WBCs1.1 >0.7 >0.9patient afebrile Continue supplementary oxygen (3) Anxiety: Code(s): F41.9 - Anxiety disorder, unspecified Status: Acute Assessment and Plan: Started Ativan (4) Neutropenia: Qualifiers: Neutropenia type: unspecified Qualified Code(s): D70.9 - Neutropenia, unspecified Code(s): D70.9 - Neutropenia, unspecified Status: Acute Assessment and Plan: Chronic Secondary to myelofibrosis Absolute neutrophil 0.49>0.39 Will possibly have to place on neutropenic isolation (5) Thrombocytopenia: Code(s): D69.6 - Thrombocytopenia, unspecified Status: Acute Assessment and Plan: Chronic Secondary to myelofibrosis Platelets 50>36 We will transfuse for platelets under 20 plt 50>46 (6) Leukocytopenia: Qualifiers: Leukopenia type: unspecified Qualified Code(s): D72.819 - Decreased white blood cell count, unspecified Code(s): D72.819 - Decreased white blood cell count, unspecified Status: Acute Assessment and Plan: Chronic Secondary to myelofibrosis WBCs1.1>0.7 (7) COPD (chronic obstructive pulmonary disease): Qualifiers: COPD type: unspecified COPD Qualified Code(s): J44.9 - Chronic obstructive pulmonary disease, unspecified Code(s): J44.9 - Chronic obstructive pulmonary disease, unspecified Status: Acute Assessment and Plan: Continue nebulizer and inhalers Supplementary oxygen (8) Chronic progressive renal failure, stage 3 (moderate): Code(s): N18.30 - Chronic kidney disease, stage 3 unspecified Status: Acute Assessment and Plan: Continue Plavix (9) Coronary artery disease: Qualifiers: Coronary Disease-Associated Artery/Lesion type: unspecified vessel or lesion type [place] vs. transplanted heart: [place] heart Associated angina: without angina Qualified Code(s): I25.10 - Atherosclerotic heart disease of [place] coronary artery without angina pectoris Code(s): I25.10 - Atherosclerotic heart disease of [place] coronary artery without angina pectoris Status: Acute Assessment and Plan: Stent placement September 29, 2018 to the proximal circumflex due to 99% stenosis (10) Diastolic congestive heart failure: Qualifiers: Heart failure chronicity: chronic Qualified Code(s): I50.32 - Chronic diastolic (congestive) heart failure Code(s): I50.30 - Unspecified diastolic (congestive) heart failure Status: Acute Assessment and Plan: EF of 55% back in 2019 with narrow left ventricular hypertrophy BNP [id number] Daily weights, reviewed Daily Lasix Chest x-ray indicates pneumonia and a small pleural effusion (11) Myelofibrosis: Code(s): D75.81 - Myelofibrosis Status: Acute Assessment and Plan: Patient is followed by Dr. Duncan Zaman
[2020-08-29] MEDS: SACCHAROMYCES BOULARDII 250 MG CAPSULE PO ×2 (08:50→16:43)
[2020-08-29] MEDS: FUROSEMIDE INJ 40 MG/4 ML VIAL IV PUSH (08:51)
--- NOTE | 2020-08-29 16:00 | PC.NURSE ---
Pt sitting up in chair upon entering room for assessment and will stay sitting up until dinner. Pt. voices no concerns at this time. Watching TV and call newman in reach. Pt. states she will call if needed.
[2020-08-30] VITALS (15 sets, daily range): BP systolic 118–135; BP diastolic 54–78; PULSE 53–102; RESP 14–20; TEMP 35.8–36.4; O2SAT 93–100
[2020-08-30] MEDS: methylPREDNISolone SOD SUCC 40 MG VIAL IV PUSH ×4 (01:14→21:21)
[2020-08-30] MEDS: IPRATROPIUM 0.5 MG/ALBUTEROL SULFATE 2.5 MG AMPUL.NEB 3 ML INHALATION ×5 (01:14→22:45)
[2020-08-30] MEDS: traMADol HCL (*CRX) 25 MG TABLET PO ×2 (06:27→18:42)
[2020-08-30] MEDS: LORazepam INJ (*CRX) 2 MG/ML VIAL 0.5 MG IV PUSH ×3 (07:02→18:40)
[2020-08-30 08:38] LABS: Hematocrit 31.8 % (35.0-42.0); Hemoglobin 10.5 g/dL (11.7-13.8); Immature Platelet Fraction Pct 4.5 % (1.0-7.0); Mean Corpuscular Hemoglobin 28.7 pg (27.0-31.0); Mean Corpuscular Volume 86.9 fL (78.0-102.0); Mean Platelet Volume 9.5 fl (9.2-11.8); Platelet Count Result 52 K/mm3 (150-420); Red Blood Count 3.66 M/mm3 (4.20-5.40); Red Cell Distribution Width 18.2 % (11.6-14.4)
[2020-08-30 08:40] LABS: White Blood Count 1.2 K/mm3 (4.8-10.8)
[2020-08-30 08:51] LABS: Alanine Aminotransferase 13 U/L (14-59); Albumin Level 3.4 g/dL (3.4-5.0); Alkaline Phosphatase 97 U/L (46-116); Anion Gap 10 mmol/L (8-16); Aspartate Amino Transferase < 10 U/L (15-37); Bilirubin,Total 0.7 mg/dL (0.00-1.00); Blood Urea Nitrogen 27 mg/dL (7-18); Calcium 8.9 mg/dL (8.5-10.1); Carbon Dioxide 28 mmol/L (21-32); Chloride 101 mmol/L (98-108); Estimated Glomerular Filt Rate 55; Glucose 155 mg/dL (70-99); Osmolality Calculated 296 mOsm/kg (285-295); Potassium 4.5 mmol/L (3.5-5.1); Sodium 139 mmol/L (136-145); Total Protein 5.9 g/dL (6.4-8.2)
[2020-08-30 08:58] LABS: Neutrophils Percent Manual 90 % (46-73); Total Cells Counted 100
[2020-08-30 08:59] LABS: Band Neutrophils Percent 0 % (0-6); Basophils Percent Manual 0 % (0-1); Eosinophils Percent Manual 0 % (1-6); Lymphocytes Absolute Manual 0.07 K/mm3 (1.1-4.5); Lymphocytes Percent Manual 6 % (18-44); Monocytes Absolute Manual 0.04 K/mm3 (0.1-0.90); Monocytes Percent Manual 4 % (3-9); Neutrophils Absolute Manual 1.08 K/mm3 (1.7-7.2); Platelet Estimate Decreased (Adequate)
[2020-08-30] MEDS: FUROSEMIDE INJ 40 MG/4 ML VIAL IV PUSH (09:13)
[2020-08-30] MEDS: polyethylene glycoL 3350 17 GM POWD.PACK 8.5 GM PO (09:13)
[2020-08-30] MEDS: NYSTATIN 100,000 UNITS/ML SUSP 5 ML ORAL.SUSP PO ×4 (09:13→21:21)
[2020-08-30] MEDS: SACCHAROMYCES BOULARDII 250 MG CAPSULE PO ×3 (09:13→16:55)
--- NOTE | 2020-08-30 12:01 | P.PNIM_ITS ---
Progress Note: A&P Assessment and Plan (1) Anemia: Qualifiers: Anemia type: unspecified type Qualified Code(s): D64.9 - Anemia, unspecified Code(s): D64.9 - Anemia, unspecified Status: Acute Assessment and Plan: * Acute on chronic anemia likely multifactorial due to myelofibrosis versus GI blood loss * Patient received 2 units of PRBC * Per patient she has a history of vessels rubbing together that causes bleeding * Patient denies any hematochezia or hematuria * Chronic positive Hemoccult * Occult blood negative * Has appointment to follow-up with GI * EKG SR * Hemoglobin 6.2>8.6>10.0>9.6 08/30/2020 H/H 10.5/31.8, continue to monitor, no SOB, transfuse if <7 (2) Community acquired pneumonia: Qualifiers: Laterality: left Lung location: lower lobe of lung Qualified Code(s): J18.9 - Pneumonia, unspecified organism Code(s): J18.9 - Pneumonia, unspecified organism Status: Acute Assessment and Plan: * Chest x-ray indicates pneumonia * Continue nebulizers and inhalers * Blood culture pending * Continue azithromycin and Rocephin day 3 * Continue Solu-Medrol * WBCs1.1 >0.7 >0.9patient afebrile * Continue supplementary oxygen 08/30/2020 Continue with Ab, supplemental O2, Solu-Medrol decreased to Q8H, Chest x-ray report states Left lung atelectasis and less likely pneumonia, Blood Cx Staph aureus and Staph epidermis, Urine Cx Enterococcus, VQ scan intermediate probability of PE however Plt count of 52 contraindicates anticoagulation (3) Anxiety: Code(s): F41.9 - Anxiety disorder, unspecified Status: Acute Assessment and Plan: * Started Ativan (4) Neutropenia: Qualifiers: Neutropenia type: unspecified Qualified Code(s): D70.9 - Neutropenia, unspecified Code(s): D70.9 - Neutropenia, unspecified Status: Acute Assessment and Plan: * 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 * Absolute neutrophil 0.49>0.39 * Will possibly have to place on neutropenic isolation 08/30/2020 Abs Neutrophil count today 1.08, continue to monitor (5) Thrombocytopenia: Code(s): D69.6 - Thrombocytopenia, unspecified Status: Acute Assessment and Plan: * 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 * Platelets 50>36 * We will transfuse for platelets under 20 * plt 50>46 08/30/2020 Plt 52 today, continue to monitor, no active bleeding (6) Leukocytopenia: Qualifiers: Leukopenia type: unspecified Qualified Code(s): D72.819 - Decreased white blood cell count, unspecified Code(s): D72.819 - Decreased white blood cell count, unspecified Status: Acute Assessment and Plan: * 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 * WBCs1.1>0.7 08/30/2020 increased to 1.2, continue to monitor (7) COPD (chronic obstructive pulmonary disease): Qualifiers: COPD type: unspecified COPD Qualified Code(s): J44.9 - Chronic obst ructive pulmonary disease, unspecified Code(s): J44.9 - Chronic obstructive pulmonary disease, unspecified Status: Acute Assessment and Plan: * Continue nebulizer and inhalers * Supplementary oxygen 08/30/2020 Stable condition, continue inhaler and supplemental O2, Solu-Medrol decreased to Q8H (8) Chronic progressive renal failure, stage 3 (moderate): Code(s): N18.30 - Chronic kidney disease, stage 3 unspecified Status: Acute Assessment and Plan: * Continue Plavix (9) Coronary artery disease: Qualifiers: Coronary Disease-Associated Artery/Lesion type: unspe
--- NOTE | 2020-08-30 12:01 | PM.IMPN ---
Progress Note: A&P Assessment and Plan (1) Anemia: Qualifiers: Anemia type: unspecified type Qualified Code(s): D64.9 - Anemia, unspecified Code(s): D64.9 - Anemia, unspecified Status: Acute Assessment and Plan: Acute on chronic anemia likely multifactorial due to myelofibrosis versus GI blood loss Patient received 2 units of PRBC Per patient she has a history of vessels rubbing together that causes bleeding Patient denies any hematochezia or hematuria Chronic positive Hemoccult Occult blood negative Has appointment to follow-up with GI EKG SR Hemoglobin 6.2>8.6>10.0>9.6 08/30/2020 H/H 10.5/31.8, continue to monitor, no SOB, transfuse if <7 (2) Community acquired pneumonia: Qualifiers: Laterality: left Lung location: lower lobe of lung Qualified Code(s): J18.9 - Pneumonia, unspecified organism Code(s): J18.9 - Pneumonia, unspecified organism Status: Acute Assessment and Plan: Chest x-ray indicates pneumonia Continue nebulizers and inhalers Blood culture pending Continue azithromycin and Rocephin day 3 Continue Solu-Medrol WBCs1.1 >0.7 >0.9patient afebrile Continue supplementary oxygen 08/30/2020 Continue with Ab, supplemental O2, Solu-Medrol decreased to Q8H, Chest x-ray report states Left lung atelectasis and less likely pneumonia, Blood Cx Staph aureus and Staph epidermis, Urine Cx Enterococcus, VQ scan intermediate probability of PE however Plt count of 52 contraindicates anticoagulation (3) Anxiety: Code(s): F41.9 - Anxiety disorder, unspecified Status: Acute Assessment and Plan: Started Ativan (4) Neutropenia: Qualifiers: Neutropenia type: unspecified Qualified Code(s): D70.9 - Neutropenia, unspecified Code(s): D70.9 - Neutropenia, unspecified Status: Acute Assessment and Plan: Chronic Secondary to myelofibrosis Absolute neutrophil 0.49>0.39 Will possibly have to place on neutropenic isolation 08/30/2020 Abs Neutrophil count today 1.08, continue to monitor (5) Thrombocytopenia: Code(s): D69.6 - Thrombocytopenia, unspecified Status: Acute Assessment and Plan: Chronic Secondary to myelofibrosis Platelets 50>36 We will transfuse for platelets under 20 plt 50>46 08/30/2020 Plt 52 today, continue to monitor, no active bleeding (6) Leukocytopenia: Qualifiers: Leukopenia type: unspecified Qualified Code(s): D72.819 - Decreased white blood cell count, unspecified Code(s): D72.819 - Decreased white blood cell count, unspecified Status: Acute Assessment and Plan: Chronic Secondary to myelofibrosis WBCs1.1>0.7 08/30/2020 increased to 1.2, continue to monitor (7) COPD (chronic obstructive pulmonary disease): Qualifiers: COPD type: unspecified COPD Qualified Code(s): J44.9 - Chronic obstructive pulmonary disease, unspecified Code(s): J44.9 - Chronic obstructive pulmonary disease, unspecified Status: Acute Assessment and Plan: Continue nebulizer and inhalers Supplementary oxygen 08/30/2020 Stable condition, continue inhaler and supplemental O2, Solu-Medrol decreased to Q8H (8) Chronic progressive renal failure, stage 3 (moderate): Code(s): N18.30 - Chronic kidney disease, stage 3 unspecified Status: Acute Assessment and Plan: Continue Plavix (9) Coronary artery disease: Qualifiers: Coronary Disease-Associated Artery/Lesion type: unspecified vessel or lesion type [place] vs. transplanted heart: [place] heart Associated angina: without angina Qualified Code(s): I25.10 - Atherosclerotic heart disease of [place] coronary artery without angina pectoris Code(s): I25.10 - Atherosclerotic heart disease of [place] coronary artery without angina pectoris Status: Acute Assessment and Plan: Stent placement September 29, 2018 to the proximal circumflex due to 99% iman
--- NOTE | 2020-08-30 12:50 | PC.NURSE ---
patient returned from imaging
--- NOTE | 2020-08-30 15:05 | PC.NURSE ---
Completed bedside report. Patient sitting comfortably in chair. Stated no pain, other than usual arthritis, did not need any pain medication. Stated lasix had caused her to use the bedside commode repeatedly.
[2020-08-30 21:40] LABS: Vancomycin Trough 9.4 ug/mL (10.0-15.0)
[2020-08-31 05:17] LABS: Hematocrit 31.5 % (35.0-42.0); Hemoglobin 10.3 g/dL (11.7-13.8); Immature Platelet Fraction Pct 4.3 % (1.0-7.0); Mean Corpuscular HGB Conc 32.7 g/dL (32.0-36.0); Mean Corpuscular Hemoglobin 28.5 pg (27.0-31.0); Mean Corpuscular Volume 87.3 fL (78.0-102.0); Mean Platelet Volume 10.8 fl (9.2-11.8); Platelet Count Result 55 K/mm3 (150-420); Red Blood Count 3.61 M/mm3 (4.20-5.40); Red Cell Distribution Width 18.2 % (11.6-14.4)
[2020-08-31 05:21] LABS: White Blood Count 1.4 K/mm3 (4.8-10.8)
[2020-08-31 05:25] LABS: Anion Gap 10 mmol/L (8-16); Blood Urea Nitrogen 30 mg/dL (7-18); Calcium 8.7 mg/dL (8.5-10.1); Carbon Dioxide 28 mmol/L (21-32); Chloride 100 mmol/L (98-108); Estimated Glomerular Filt Rate 56; Glucose 141 mg/dL (70-99); Osmolality Calculated 294 mOsm/kg (285-295); Potassium 4.8 mmol/L (3.5-5.1); Sodium 138 mmol/L (136-145)
[2020-08-31 05:35] LABS: Band Neutrophils Percent 0 % (0-6); Basophils Percent Manual 0 % (0-1); Eosinophils Percent Manual 0 % (1-6); Lymphocytes Absolute Manual 0.12 K/mm3 (1.1-4.5); Lymphocytes Percent Manual 9 % (18-44); Monocytes Absolute Manual 0.08 K/mm3 (0.1-0.90); Monocytes Percent Manual 6 % (3-9); Neutrophils Absolute Manual 1.19 K/mm3 (1.7-7.2); Neutrophils Percent Manual 85 % (46-73); Platelet Estimate Decreased (Adequate); Total Cells Counted 100
[2020-08-31] MEDS: IPRATROPIUM 0.5 MG/ALBUTEROL SULFATE 2.5 MG AMPUL.NEB 3 ML INHALATION ×2 (05:37→12:23)
[2020-08-31 05:38] VITALS: PULSE 96; RESP 18; O2SAT 96
[2020-08-31 05:47] VITALS: PULSE 88; RESP 18; O2SAT 97
--- NOTE | 2020-08-31 05:49 | PC.NURSE ---
Dr. Jarrell notified of pt's critical WBC of 1.4; No new orders at this time.
[2020-08-31] MEDS: methylPREDNISolone SOD SUCC 40 MG VIAL IV PUSH (06:04)
--- NOTE | 2020-08-31 06:09 | PC.NURSE ---
Pt given solumedrol 40 mg IVP as ordered.
[2020-08-31] MEDS: traMADol HCL (*CRX) 25 MG TABLET PO (06:12)
[2020-08-31 08:00] VITALS: BP 112/82; PULSE 90; RESP 16; TEMP 36.4; O2SAT 92
[2020-08-31] MEDS: FUROSEMIDE INJ 40 MG/4 ML VIAL IV PUSH (09:17)
[2020-08-31] MEDS: NYSTATIN 100,000 UNITS/ML SUSP 5 ML ORAL.SUSP PO ×2 (09:18→12:59)
[2020-08-31] MEDS: LORazepam INJ (*CRX) 2 MG/ML VIAL 0.5 MG IV PUSH (10:55)
[2020-08-31 12:30] VITALS: PULSE 104; RESP 18; O2SAT 94
[2020-08-31 12:40] VITALS: PULSE 100; RESP 18; O2SAT 97
[2020-08-31] MEDS: SACCHAROMYCES BOULARDII 250 MG CAPSULE PO (13:00)
--- NOTE | 2020-08-31 13:08 | P.DS_ITS ---
DS: Admitting Diagnosis Admitting Diagnosis Admitting Diagnosis: Anemia, Pneumonia, Neutropenia, Thrombocytopenia, Leukopenia, CHF DS: Discharge Diagnosis Discharge Diagnosis (1) Anemia: Qualifiers: Anemia type: unspecified type Qualified Code(s): D64.9 - Anemia, unspecified Code(s): D64.9 - Anemia, unspecified Status: Acute Assessment and Plan: * Acute on chronic anemia likely multifactorial due to myelofibrosis versus GI blood loss * Patient received 2 units of PRBC * Per patient she has a history of vessels rubbing together that causes bleeding * Patient denies any hematochezia or hematuria * Chronic positive Hemoccult * Occult blood negative * Has appointment to follow-up with GI * EKG SR * Hemoglobin 6.2>8.6>10.0>9.6 08/30/2020 H/H 10.5/31.8, continue to monitor, no SOB, transfuse if <7 08/31/2020 H/H 10.3/31.5 stable at this time, Discussed with Dr. Song, oncologist, who is ok with Pt being DC'ed on PO Ab and to f/u with him in about 1 week (2) Community acquired pneumonia: Qualifiers: Laterality: left Lung location: lower lobe of lung Qualified Code(s): J18.9 - Pneumonia, unspecified organism Code(s): J18.9 - Pneumonia, unspecified organism Status: Acute Assessment and Plan: * Chest x-ray indicates pneumonia * Continue nebulizers and inhalers * Blood culture pending * Continue azithromycin and Rocephin day 3 * Continue Solu-Medrol * WBCs1.1 >0.7 >0.9patient afebrile * Continue supplementary oxygen 08/30/2020 Continue with Ab, supplemental O2, Solu-Medrol decreased to Q8H, Chest x-ray report states Left lung atelectasis and less likely pneumonia, Blood Cx Staph aureus and Staph epidermis, Urine Cx Enterococcus, VQ scan intermediate probability of PE however Plt count of 52 contraindicates anticoagulation 08/31/2020 Follow up chest images as noted above (3) Anxiety: Code(s): F41.9 - Anxiety disorder, unspecified Status: Acute Assessment and Plan: * Started Ativan (4) Neutropenia: Qualifiers: Neutropenia type: unspecified Qualified Code(s): D70.9 - Neutropenia, unspecified Code(s): D70.9 - Neutropenia, unspecified Status: Acute Assessment and Plan: * 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 * Absolute neutrophil 0.49>0.39 * Will possibly have to place on neutropenic isolation 08/30/2020 Abs Neutrophil count today 1.08, continue to monitor 08/31/2020 ANC 1.19, discussed with Dr. Song as noted above (5) Thrombocytopenia: Code(s): D69.6 - Thrombocytopenia, unspecified Status: Acute Assessment and Plan: * 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 * Platelets 50>36 * We will transfuse for platelets under 20 * plt 50>46 08/30/2020 Plt 52 today, continue to monitor, no active bleeding 08/31/2020 Plt 55, will f/u with Dr Song and have lab work done in his office at that time (6) Leukocytopenia: Qualifiers: Leukopenia type: unspecified Qualified Code(s): D72.819 - Decreased white blood cell count, unspecified Code(s): D72.819 - Decreased white blood cell count, unspecified Status: Acute Assessment and Plan: * 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 * WBCs1.1>0.7 08/30/2020 increased to 1.2, continue to monitor 08/31/2020 WBC 1.4 (7) COPD (chronic obstructive pulmonary disease): Qualifiers: COPD type: unspecified COPD Qualified Code(s): J44.9 - Chronic obstructive pulmonary disease, unspecified Code(s): J44.9 - Chronic obstructive pulmonary disease, unspecif
--- NOTE | 2020-08-31 13:08 | PM.DS ---
DS: Admitting Diagnosis Admitting Diagnosis Admitting Diagnosis: Anemia, Pneumonia, Neutropenia, Thrombocytopenia, Leukopenia, CHF DS: Discharge Diagnosis Discharge Diagnosis (1) Anemia: Qualifiers: Anemia type: unspecified type Qualified Code(s): D64.9 - Anemia, unspecified Code(s): D64.9 - Anemia, unspecified Status: Acute Assessment and Plan: Acute on chronic anemia likely multifactorial due to myelofibrosis versus GI blood loss Patient received 2 units of PRBC Per patient she has a history of vessels rubbing together that causes bleeding Patient denies any hematochezia or hematuria Chronic positive Hemoccult Occult blood negative Has appointment to follow-up with GI EKG SR Hemoglobin 6.2>8.6>10.0>9.6 08/30/2020 H/H 10.5/31.8, continue to monitor, no SOB, transfuse if <7 08/31/2020 H/H 10.3/31.5 stable at this time, Discussed with Dr. Song, oncologist, who is ok with Pt being DC'ed on PO Ab and to f/u with him in about 1 week (2) Community acquired pneumonia: Qualifiers: Laterality: left Lung location: lower lobe of lung Qualified Code(s): J18.9 - Pneumonia, unspecified organism Code(s): J18.9 - Pneumonia, unspecified organism Status: Acute Assessment and Plan: Chest x-ray indicates pneumonia Continue nebulizers and inhalers Blood culture pending Continue azithromycin and Rocephin day 3 Continue Solu-Medrol WBCs1.1 >0.7 >0.9patient afebrile Continue supplementary oxygen 08/30/2020 Continue with Ab, supplemental O2, Solu-Medrol decreased to Q8H, Chest x-ray report states Left lung atelectasis and less likely pneumonia, Blood Cx Staph aureus and Staph epidermis, Urine Cx Enterococcus, VQ scan intermediate probability of PE however Plt count of 52 contraindicates anticoagulation 08/31/2020 Follow up chest images as noted above (3) Anxiety: Code(s): F41.9 - Anxiety disorder, unspecified Status: Acute Assessment and Plan: Started Ativan (4) Neutropenia: Qualifiers: Neutropenia type: unspecified Qualified Code(s): D70.9 - Neutropenia, unspecified Code(s): D70.9 - Neutropenia, unspecified Status: Acute Assessment and Plan: Chronic Secondary to myelofibrosis Absolute neutrophil 0.49>0.39 Will possibly have to place on neutropenic isolation 08/30/2020 Abs Neutrophil count today 1.08, continue to monitor 08/31/2020 ANC 1.19, discussed with Dr. Song as noted above (5) Thrombocytopenia: Code(s): D69.6 - Thrombocytopenia, unspecified Status: Acute Assessment and Plan: Chronic Secondary to myelofibrosis Platelets 50>36 We will transfuse for platelets under 20 plt 50>46 08/30/2020 Plt 52 today, continue to monitor, no active bleeding 08/31/2020 Plt 55, will f/u with Dr Song and have lab work done in his office at that time (6) Leukocytopenia: Qualifiers: Leukopenia type: unspecified Qualified Code(s): D72.819 - Decreased white blood cell count, unspecified Code(s): D72.819 - Decreased white blood cell count, unspecified Status: Acute Assessment and Plan: Chronic Secondary to myelofibrosis WBCs1.1>0.7 08/30/2020 increased to 1.2, continue to monitor 08/31/2020 WBC 1.4 (7) COPD (chronic obstructive pulmonary disease): Qualifiers: COPD type: unspecified COPD Qualified Code(s): J44.9 - Chronic obstructive pulmonary disease, unspecified Code(s): J44.9 - Chronic obstructive pulmonary disease, unspecified Status: Acute Assessment and Plan: Continue nebulizer and inhalers Supplementary oxygen 08/30/2020 Stable condition, continue inhaler and supplemental O2, Solu-Medrol decreased to Q8H 08/31/2020 Stable, decreased Solu-Medrol, can DC home without continuation of steroids (8) Chronic progressive renal failure, stage 3 (moderate): Code(s): N18.30 - Chronic kidney disease, stage 3 unspecified Status: Acute
--- NOTE | 2020-08-31 15:10 | PC.NURSE ---
Pt discharged to home. Discharged instructions given to pt and spouse. All personal items sent with pt. Pt discharged by WC. RN wheeled pt to the car and assisted her to get in.
--- NOTE | 2020-09-05 11:36 | PC.NURSE ---
Unable to contact for discharge call back.
== END 2020-08-31 14:45 | disposition home or self-care (01) | DRG 808 ==
LOC: CHSED 10:39 → CHS2ND 11:08
PROVIDERS: Nurse Practitioner; Nurse Practitioner Family; Admitting Provider Emergency Medicine; Emergency Provider Emergency Medicine; PCP Internal Medicine Geriatric Medicine; Visit Provider Emergency Medicine
DX: D61.818 Other pancytopenia (principal); I50.9 Heart failure, unspecified; I85.00 Esophageal varices without bleeding; I50.33 Acute on chronic diastolic (congestive) heart failure; D75.81 Myelofibrosis; N39.0 Urinary tract infection, site not specified; J44.9 Chronic obstructive pulmonary disease, unspecified; D64.9 Anemia, unspecified; N18.30 Chronic kidney disease, stage 3 unspecified; I25.10 Atherosclerotic heart disease of native coronary artery without angina pectoris; I34.0 Nonrheumatic mitral (valve) insufficiency; K12.1 Other forms of stomatitis; I25.2 Old myocardial infarction; F41.9 Anxiety disorder, unspecified; Z87.891 Personal history of nicotine dependence; Z95.5 Presence of coronary angioplasty implant and graft; J18.9 Pneumonia, unspecified organism; Z79.891 Long term (current) use of opiate analgesic
CPT/HCPCS: 36415; 36430; 71045; 71046; 78580; 80048; 80053; 80202; 81001; 82272; 83605; 83735; 83880; 84484; 85014; 85018; 85025; 85027; 85055; 85380; 85610; 85730; 86850; 86900; 86901; 86920; 87040; 87077; 87086; 87088; 87186; 93005; 94640; 96365; 96375; 99285; A9270; A9540; J0456; J0696; J1100; J1940; J2060; J2920; J2930; J3370; J7040; J7050; P9016

== ENCOUNTER 2021-03-17 09:08 | Outpatient (CLI) | payer MEDICARE, SELFPAY ==
[2021-03-17 09:32] LABS: Basophils Percent Auto 0.4 % (0.2-1.2); Eosinophils Absolute Auto 0.1 K/mm3 (0-0.3); Eosinophils Percent Auto 2.7 % (0-4.4); Hematocrit 26.1 % (37.0-47.0); Hemoglobin 8.6 g/dL (12.0-15.0); Immature Granulocyte Absolute 0.04 K/mm3 (0.00-0.031); Immature Granulocyte Percent A 1.5 % (0-0.5); Lymphocytes Absolute Auto 0.34 K/mm3 (0.9-3.2); Lymphocytes Percent Auto 12.9 % (18.3-44.2); Mean Corpuscular Hemoglobin 28.7 pg (26-34); Mean Platelet Volume 9.6 fl (7.4-10.4); Monocytes Absolute Auto 0.1 K/mm3 (0.1-0.6); Monocytes Percent Auto 3.4 % (2.6-8.5); Neutrophils Absolute Auto 2.1 K/mm3 (1.3-6.7); Neutrophils Percent Auto 79.1 % (45.5-73.1); Platelet Count Result 128 k/mm3 (150-375); Red Cell Distribution Width 19.1 % (11.5-14.5); White Blood Count 2.6 K/mm3 (4.5-10.0)
== END 2021-03-17 09:09 | disposition home or self-care (01) ==
PROVIDERS: PCP Internal Medicine Geriatric Medicine; Visit Provider Internal Medicine Hematology & Oncology
DX: D75.81 Myelofibrosis (principal)
CPT/HCPCS: 36415; 85025

== ENCOUNTER 2021-04-04 15:08 | Inpatient (IN) | payer MEDICARE, SELFPAY ==
[2021-04-04] VITALS (44 sets, daily range): BP systolic 95–144; BP diastolic 52–98; PULSE 74–80; RESP 14–42; TEMP 36.1–36.5; O2SAT 84–100; BMI 19.5
--- NOTE | ~2021-04-04 | XR_ITS ---
EXAMINATION: XR chest 1V portable DATE: 04/04/2021 15:54 INDICATION: Shortness of breath. Anemia. TECHNIQUE: A single frontal view of the chest was obtained. COMPARISON: Chest 2 views 08/30/2020, CT abdomen and pelvis 10/09/2018 FINDINGS: There is a diffuse interstitial pattern in the lungs, consistent with mild pulmonary edema. No pleural effusion or pneumothorax. Cardiomegaly is noted. There is a left internal jugular port wi th tip at superior cavoatrial junction. There is an old healed fracture of right clavicle. IMPRESSION: 1. Mild pulmonary edema. 2. Cardiomegaly. Reviewed, dictated and finalized at location A. E EXAMINER
--- NOTE | ~2021-04-04 | XR_ITS ---
EXAMINATION: XR foot RT standing 2V DATE: 04/07/2021 12:51 INDICATION: Right foot pain, swelling and erythema. TECHNIQUE: Dorsoplantar and lateral views of the right foot were obtained. COMPARISON: None. FINDINGS: Pes planus with collapse of the longitudinal arch which appears centered at the level of the cuneifor ms . There is mild lateral subluxation at the first and second tarsal metatarsal joints. Severe joint space narrowing at the tarsometatarsal joints with some increased sclerosis and extensive destructiv e changes evident with some bone fragments along the dorsal aspect of the cuneiforms on the lateral p rojection. 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 No other lesions suspiciou s for fracture. Additional mild osteoarthritis at the majority the remaining joints in the right foot . Bone island at the first distal phalanx. Diffuse osteopenia. Diffuse soft tissue swelling throughou t the right foot. IMPRESSION: 1. 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 Reviewed, dictated and finalized at location A. ETARIUM TECHNICIAN IMPRESSION: 1. 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
--- NOTE | 2021-04-04 15:38 | ECG_ITS ---
Measurements Intervals [place] Rate: 78 P: 70 LA: 154 QRS: -2 QRSD: 94 T: 178 QT: 371 QTc: 423 Interpretive Statements SINUS RHYTHM ST-T WAVE ABNORMALITY IN ANTEROLAT/HIGH LAT LEADS- CONSIDER ISCHEMIA BASELINE ARTIFACT- I, III, AVL, V3-V6 ABNORMAL ECG Electronically Signed On 04-04-2021 16:43:35 [facility] by Navarro Bliss D.O.
--- NOTE | 2021-04-04 15:39 | ED.GENADULT ---
HPI - General Adult General Chief complaint: Recheck/Abnormal Lab/Rx Stated complaint: low hgb 6.2/diff breathing Time Seen by Provider: 04/04/21 15:28 Source: RN notes reviewed History of Present Illness HPI narrative: Patient presents emergency department from home for low hemoglobin. Patient states she has a history of myeloproliferative disorder and is followed by Dr. Song states that she had a hemoglobin drawn today that was 6.2 states he has been more short of breath over the past week states she is chronically on 2 L nasal cannula but is having to increase it in any activity causes her to have increased shortness of breath. Patient denies any fevers or chills abdominal pain nausea or vomiting denies any blood in her stool states hemoglobin is normally run 9-10 Related Data Home Medications Medication Instructions Recorded Confirmed albuterol sulfate 2.5 mg INHALATION QID PRN 12/15/19 08/27/20 bupropion HCl 150 mg PO DAILY 12/15/19 08/27/20 deferasirox [Jadenu] 360 mg PO DAILY 12/15/19 08/27/20 metoprolol tartrate 12.5 mg PO BID 12/15/19 08/27/20 omeprazole 20 mg PO DAILY 12/15/19 08/27/20 atorvastatin 10 mg PO DAILY 08/15/20 08/27/20 azelastine 137 mcg INTRANASAL Q12H 08/15/20 08/27/20 benzonatate 200 mg PO TID PRN 08/15/20 08/27/20 diclofenac sodium 2 g TOPICAL QID 08/15/20 08/27/20 fluticasone propionate 1 spray INTRANASAL BID 08/15/20 08/27/20 polyethylene glycol 3350 [Miralax] 17 g PO DAILY PRN 08/15/20 08/27/20 tramadol 50 mg PO Q6H PRN 08/15/20 08/27/20 buspirone 15 mg PO BID 08/27/20 08/27/20 mirtazapine 7.5 mg PO DAILY 08/27/20 08/27/20 ondansetron HCl 4 mg PO PRN PRN 08/27/20 08/27/20 Allergies Allergy/AdvReac Type Severity Reaction Status Date / Time diazepam Allergy Unknown Unknown Verified 12/15/19 19:02 doxycycline Allergy Unknown Unknown Verified 12/15/19 19:02 Iodinated Contrast Media Allergy Unknown Unknown Verified 12/15/19 19:02 shellfish derived Allergy Unknown Unknown Verified 12/15/19 19:02 Sulfa (Sulfonamide Allergy Unknown Unknown Verified 12/15/19 19:02 Antibiotics) Review of Systems Review of Systems: Gen.: Denies fevers or chills Eyes: Denies eye pain or visual change ENT: Denies congestion Respiratory: see HPI CV: Denies chest pain or palpitations GI: Denies abdominal pain nausea, emesis or diarrhea denies burning, urgency, frequency or hematuria Musculoskeletal: Denies back pain or muscle pain Neuro: Denies numbness, tingling, weakness or focal weakness Skin: Denies rash Heme: Reports history of myeloproliferative disorder Except as documented, all other systems reviewed and negative [facility] Past Medical History Medical History Chronic progressive renal failure, stage 3 (moderate) COPD (chronic obstructive pulmonary disease) Coronary artery disease Diastolic congestive heart failure Mitral regurgitation Myelofibrosis Myocardial infarction Surgical History Surgical History S/p bilateral myringotomy with tube placement Stented coronary artery Social History Social History Smoking packs per day: 1 Smoking cigarettes per day: 20.0 Years smoked: 40 Smoking pack-years: 40.00 Smoking status: Former smoker Tobacco type: cigarettes Second hand tobacco smoke exposure: No Alcohol intake: never Drinks per week: 1 Substance use: never Substance use type: other Other substance usage details: Tramadol BID Last use: 07/27/20 Gender identity (if verbalized by the patient): Female Sexual Orientation (if Verbalized by the Patient): Straight or Heterosexual Spiritual care concerns: No Exam Narrative: APPEARANCE: No acute distress, nontoxic, resting in bed EYES: EOMI HEENT: Normocephalic, atraumatic, OMM RESPIRATORY: No respiratory distress Clear to auscultation bilaterally with no rhon
[2021-04-04 17:02] LABS: Eosinophils Percent Auto 0.7 % (0-4.4); Immature Granulocyte Absolute 0.03 K/mm3 (0.00-0.031); Immature Granulocyte Percent A 1.1 % (0-0.5); Immature Platelet Fraction Pct 5.9 % (0.9-11.2); Lymphocytes Absolute Auto 0.24 K/mm3 (0.9-3.2); Lymphocytes Percent Auto 8.6 % (18.3-44.2); Mean Corpuscular HGB Conc 32.3 g/dl (32-36); Mean Corpuscular Hemoglobin 29.8 pg (26-34); Mean Corpuscular Volume 92.2 fl (80-100); Mean Platelet Volume 11.1 fl (7.4-10.4); Monocytes Absolute Auto 0.2 K/mm3 (0.1-0.6); Monocytes Percent Auto 8.6 % (2.6-8.5); Neutrophils Absolute Auto 2.3 K/mm3 (1.3-6.7); Nucleated Red Blood Cells Perc 0.7 % (0.0-0.2); Platelet Count Result 114 k/mm3 (150-375); Red Blood Count 2.05 M/mm3 (4.2-5.4); Red Cell Distribution Width 23.7 % (11.5-14.5); White Blood Count 2.8 K/mm3 (4.5-10.0)
[2021-04-04 17:03] LABS: Alanine Aminotransferase 8 U/L (4-35); Alkaline Phosphatase 69 U/L (38-126); Anion Gap 13 mmol/L (8-16); Aspartate Amino Transferase 18 U/L (14-36); Bilirubin,Total 1.8 mg/dL (0.2-1.3); Blood Urea Nitrogen 31 mg/dL (7-17); Calcium 8.7 mg/dL (8.4-10.2); Carbon Dioxide 18 mmol/L (22-30); Chloride 108 mmol/L (98-107); Estimated Glomerular Filt Rate 36; Glucose 103 mg/dL (65-110); Potassium 4.4 mmol/L (3.4-5.0); Sodium 139 mmol/L (137-145)
[2021-04-04 17:07] LABS: Hematocrit 18.9 % (37.0-47.0); Hemoglobin 6.1 g/dL (12.0-15.0)
[2021-04-04 17:09] LABS: INR 1.2; Prothrombin Time 14.7 Seconds (11.1-14.7)
[2021-04-04 17:11] LABS: Partial Thromboplastin Time 62.7 SECONDS (22.3-36.8)
[2021-04-04 17:54] LABS: NT Pro B Type Natriuretic Pept 21000 pg/mL (5-100); Troponin I < 0.012 ng/mL (0.000-0.034)
[2021-04-04] MEDS: SODIUM CHLORIDE 0.9% IV 250 ML 30 ML IV CONT (19:06)
[2021-04-04] MEDS: FUROSEMIDE INJ 40 MG/4 ML VIAL 20 MG IV PUSH (19:07)
[2021-04-04] MEDS: TUBING, BLOOD SET 1 EACH XX (19:08)
--- NOTE | 2021-04-04 21:04 | ADMGEN ---
This patient, Agustina Hampton, was admitted to [facility] Surg Room 317-02. Patient/family oriented to hospital policies and general routines including ID bracelet, bed and alarms, visiting hours, pain management, procedures, bathroom and other care routines, personal items, smoking policy, room service/diet, and visiting hours. Information on how to activate the Rapid Response Team has been discussed. Patient/Family are encouraged to report perceived risks to care and to ask questions if they do not understand what they are told or what they should do.
--- NOTE | 2021-04-04 22:01 | PM.IMHP ---
H&P: HPI History of Present Illness Date/Time: 04/04/21 22:01 Chief Complaint: Abnormal labs Narrative: Patient is a 75-year-old female who presents to the ER for abnormal labs. She states she has a history of myeloproliferative disorder and follows with Dr. Song and gets injections. See has been running well since the injection started for approximately 6 months prior to which she used to need transfusion every 2-4 weeks. She has not had required any transfusion since past 6 months however today when she went to go for the injection they checked her blood to see however hemoglobin is doing which is routine knee done she was found to have hemoglobin of 6.2. She was then sent to the ER to get transfusion and further evaluation. She states she has been more short of breath will past week or so and has underlying diagnosis of COPD/congestive heart failure. She has been chronically on 2 L oxygen at home for several years. She denies any increased leg swelling or any cough. She also denies any abdominal pain or any blood in her stool or dark colored stool. She states that her hemoglobin is normally runs between 9-10 Review of Systems Review of Systems: Gen.: Denies fevers or chills Eyes: Denies eye pain or visual change ENT: Denies congestion or nasal bleeding Respiratory: Reports shortness of breath denies cough CV: Denies chest pain or palpitations GI: Denies abdominal pain nausea, emesis or diarrhea denies burning, urgency, frequency or hematuria Musculoskeletal: Denies back pain or muscle pain Neuro: Denies numbness, tingling, weakness or focal weakness Skin: Denies rash for any skin lesions Heme: Reports history of myeloproliferative disorder [facility] Past Medical History Medical History Chronic progressive renal failure, stage 3 (moderate) COPD (chronic obstructive pulmonary disease) Coronary artery disease Diastolic congestive heart failure Mitral regurgitation Myelofibrosis Myocardial infarction Surgical History Surgical History S/p bilateral myringotomy with tube placement Stented coronary artery Social History Social History Smoking packs per day: 1 Smoking cigarettes per day: 20.0 Years smoked: 40 Smoking pack-years: 40.00 Smoking status: Former smoker Tobacco type: cigarettes Second hand tobacco smoke exposure: No Alcohol intake: never Drinks per week: 1 Substance use: never Substance use type: other Other substance usage details: Tramadol BID Last use: 07/27/20 Gender identity (if verbalized by the patient): Female Sexual Orientation (if Verbalized by the Patient): Straight or Heterosexual Spiritual care concerns: No Meds Home Medications and Allergies Home Medications Medication Instructions Recorded Confirmed Type albuterol sulfate 2.5 mg INHALATION QID PRN 12/15/19 04/04/21 History bupropion HCl 150 mg PO DAILY 12/15/19 04/04/21 History deferasirox [Jadenu] 360 mg PO DAILY 12/15/19 04/04/21 History metoprolol tartrate 12.5 mg PO BID 12/15/19 04/04/21 History omeprazole 20 mg PO DAILY 12/15/19 08/27/20 History torsemide 10 mg PO DAILY #0 tablet 07/30/20 08/27/20 Rx atorvastatin 10 mg PO DAILY 08/15/20 08/27/20 History azelastine 137 mcg INTRANASAL Q12H 08/15/20 08/27/20 History benzonatate 200 mg PO TID PRN 08/15/20 08/27/20 History diclofenac sodium 2 g TOPICAL QID 08/15/20 08/27/20 History fluticasone propionate 1 spray INTRANASAL BID 08/15/20 08/27/20 History polyethylene glycol 3350 [Miralax] 17 g PO DAILY PRN 08/15/20 08/27/20 History tramadol 50 mg PO Q6H PRN 08/15/20 08/27/20 History mirtazapine 7.5 mg PO DAILY 08/27/20 08/27/20 History ondansetron HCl 4 mg PO PRN PRN 08/27/20 08/27/20 History Allergies Allergy/AdvReac Type Severity Reaction Status Date / Time diazepam Allergy Unknown Unknown Dilma
[2021-04-04 22:29] LABS: Immature Reticulocyte Fraction 23.1 % (3.0-15.9); Reticulocyte Hemoglobin Conten 36.1 pg (28.2-35.7); Reticulocyte Percent 6.61 % (0.7-4.3); Reticulocytes Absolute 0.14 B/L (32.2-175.7)
[2021-04-05] VITALS (13 sets, daily range): BP systolic 92–148; BP diastolic 52–89; PULSE 68–97; RESP 16–20; TEMP 36.2–36.8; O2SAT 92–100
[2021-04-05] MEDS: METOPROLOL TARTRATE 12.5 MG TABLET PO ×3 (01:36→20:31)
[2021-04-05] MEDS: MIRTAZAPINE 7.5 MG TABLET PO ×2 (01:36→20:31)
[2021-04-05 06:33] LABS: Basophils Percent Auto 0.4 % (0.2-1.2); Eosinophils Percent Auto 1.6 % (0-4.4); Hematocrit 29.8 % (37.0-47.0); Hemoglobin 10.1 g/dL (12.0-15.0); Immature Granulocyte Absolute 0.02 K/mm3 (0.00-0.031); Immature Granulocyte Percent A 0.8 % (0-0.5); Immature Platelet Fraction Pct 4.9 % (0.9-11.2); Lymphocytes Absolute Auto 0.24 K/mm3 (0.9-3.2); Lymphocytes Percent Auto 9.5 % (18.3-44.2); Mean Corpuscular HGB Conc 33.9 g/dl (32-36); Mean Corpuscular Hemoglobin 29.8 pg (26-34); Mean Corpuscular Volume 87.9 fl (80-100); Mean Platelet Volume 10.5 fl (7.4-10.4); Monocytes Absolute Auto 0.3 K/mm3 (0.1-0.6); Monocytes Percent Auto 12.6 % (2.6-8.5); Neutrophils Absolute Auto 1.9 K/mm3 (1.3-6.7); Neutrophils Percent Auto 75.1 % (45.5-73.1); Nucleated Red Blood Cells Perc 0.8 % (0.0-0.2); Platelet Count Result 84 k/mm3 (150-375); Red Blood Count 3.39 M/mm3 (4.2-5.4); Red Cell Distribution Width 18.9 % (11.5-14.5); White Blood Count 2.5 K/mm3 (4.5-10.0)
[2021-04-05 06:42] LABS: Alanine Aminotransferase 8 U/L (4-35); Albumin Level 3.8 g/dL (3.5-5.1); Alkaline Phosphatase 66 U/L (38-126); Anion Gap 9 mmol/L (8-16); Aspartate Amino Transferase 20 U/L (14-36); Bilirubin,Total 1.9 mg/dL (0.2-1.3); Blood Urea Nitrogen 27 mg/dL (7-17); Calcium 8.6 mg/dL (8.4-10.2); Carbon Dioxide 20 mmol/L (22-30); Chloride 108 mmol/L (98-107); Estimated Glomerular Filt Rate 40; Glucose 91 mg/dL (65-110); Potassium 3.8 mmol/L (3.4-5.0); Sodium 137 mmol/L (137-145)
[2021-04-05] MEDS: PANTOPRAZOLE 40 MG TABLET PO (08:36)
[2021-04-05] MEDS: ATORVASTATIN 10 MG TABLET PO (08:37)
[2021-04-05] MEDS: FLUTICASONE PROPIONATE 0.05% NA SPR 16 GM BTL (*BKC) 1 SPRAY NASAL ×2 (08:37→17:01)
[2021-04-05] MEDS: FUROSEMIDE INJ 40 MG/4 ML VIAL 20 MG IV PUSH (10:02)
[2021-04-05] MEDS: buPROPion HCL XL (24 HR) 150 MG TABCR PO (11:24)
--- NOTE | 2021-04-05 12:44 | PDONCCN ---
HPI - Date of Consult Date/Time: 04/05/21 12:44 Requesting Physician: Dionicio Song MD Primary Care Provider: PHYSICIAN NOT ON STAFF - Consult Narrative Reason for consult: Myelofibrosis Narrative: Agustina Hampton is a 75 year old female with diagnosis of myelofibrosis made in 2010 along with possible myelodysplastic syndrome. She also has a history of angiodysplasia status post EGD and cauterization done in June of 2019. She has been on Aranesp 200 mcg weekly basis. Her last Aranesp injection was more than 3 months ago as her hemoglobin was consistently above 10. She now came into the hospital with generalized weakness along with tiredness and fatigue and shortness of breath. Labs showed hemoglobin of 6.1. She received 2 units of packed red blood cell with hemoglobin improvement to 10.1. She denies any melena hematochezia. She is feeling much better after the blood transfusion. Denies any other new complaints. Review of Systems - Review of Systems All systems reviewed & are unremarkable except as noted in HPI and [facility] Medical History: Medical History (Last Reviewed 04/04/21 @ 15:40 by Oren Hilario DO) Chronic progressive renal failure, stage 3 (moderate) COPD (chronic obstructive pulmonary disease) Coronary artery disease Diastolic congestive heart failure Mitral regurgitation Myelofibrosis Myocardial infarction Surgical History: Surgical History (Last Reviewed 08/27/20 @ 10:37 by Mike Arevalo MD) S/p bilateral myringotomy with tube placement Stented coronary artery - Social History Social History: Social History (Last Reviewed 04/04/21 @ 15:40 by Oren Hilario DO) Gender Identity: Gender identity (if verbalized by the patient): Female Sexual Orientation: Sexual Orientation (if Verbalized by the Patient): Straight or Heterosexual Alcohol Use: Alcohol intake: current Drinks per week: 7 Substance Use: Substance use: never Substance use type: does not use Other substance usage details: Tramadol BID Last use: 07/27/20 Others: Spiritual care concerns: No Smoking Status: Smoking status: Former smoker Tobacco type: cigarettes Second hand tobacco smoke exposure: No Approximate Smoking End Date: 25 yrs ago Smoking Pack-years: Smoking packs per day: 1 Smoking cigarettes per day: 20.0 Years smoked: 40 Smoking pack-years: 40.00 Meds Home Medications Medication Instructions Recorded Confirmed Type albuterol sulfate 2.5 mg INHALATION QID PRN 12/15/19 04/04/21 History bupropion HCl 150 mg PO DAILY 12/15/19 04/04/21 History deferasirox [Jadenu] 360 mg PO DAILY 12/15/19 04/04/21 History metoprolol tartrate 12.5 mg PO BID 12/15/19 04/04/21 History omeprazole 20 mg PO DAILY 12/15/19 04/04/21 History torsemide 10 mg PO DAILY #0 tablet 07/30/20 08/27/20 Rx atorvastatin 10 mg PO DAILY 08/15/20 04/04/21 History azelastine 137 mcg INTRANASAL Q12H PRN 08/15/20 04/04/21 History benzonatate 200 mg PO TID PRN 08/15/20 04/04/21 History diclofenac sodium 2 g TOPICAL QID PRN 08/15/20 04/04/21 History fluticasone propionate 1 spray INTRANASAL BID 08/15/20 04/04/21 History polyethylene glycol 3350 [Miralax] 17 g PO DAILY PRN 08/15/20 08/27/20 History tramadol 50 mg PO Q6H PRN 08/15/20 08/27/20 History mirtazapine 7.5 mg PO HS 08/27/20 04/04/21 History ondansetron HCl 4 mg PO PRN PRN 08/27/20 04/04/21 History Allergies Allergy/AdvReac Type Severity Reaction Status Date / Time diazepam Allergy Unknown Unknown Verified 12/15/19 19:02 doxycycline Allergy Unknown Unknown Verified 12/15/19 19:02 Iodinated Contrast Media Allergy Unknown Unknown Verified 12/15/19 19:02 shellfish derived Allergy Unknown Unknown Verified 12/15/19 19:02 Sulfa (Sulfonamide Allergy Unknown Unknown Verified 12/15/19 19:02 Antibiotics) Results - Labs CBC & Chem 7: 04/05/21 06:25 04/05/21 06:25 Labs: Short CBC
--- NOTE | 2021-04-05 13:55 | PHAR ---
HOME MED VERIFIED JADENU 360MG TABLET TAKE 1 DAILY
[2021-04-05] MEDS: CENTRAL LINE FLUSH 10 ML IV PUSH ×2 (14:26→22:49)
--- NOTE | 2021-04-05 14:53 | PM.IMPN ---
Progress Note: A&P Assessment and Plan (1) Symptomatic anemia: Code(s): D64.9 - Anemia, unspecified Status: Acute Assessment and Plan: 04/05/2021 Interval history: 75-year-old female with history myelofibrosis made in 2010 along with possible myelodysplastic syndrome. patient has been seen by oncologist and has been receiving weekly injection of Aranesp 200mcg and her last treatment was 3 months ago as her hemoglobin was close to 10, patient presented to oncology office yesterday with complaint of being tired and fatigue and her hemoglobin was 6.1 patient was sent to emergency department for further evaluation and received 2 units of pack RBC, this morning patient states feeling much better however she fells short of breath and her BNP is 21,000, with history grade 3 diastolic congestive heart failure, patient was given IV Lasix 20 mg IV x1 in ER will give another dose of IV Lasix 20 mg time 1, will monitor reassess in the morning and possibly discharge the patient. will have a PT OT evaluate the patient. (2) CHF (congestive heart failure): Code(s): I50.9 - Heart failure, unspecified Status: Acute Assessment and Plan: patient with a grade 3 diastolic congestive heart failure, will gently diurese the patient and monitor (3) Acute renal insufficiency: Code(s): N28.9 - Disorder of kidney and ureter, unspecified Status: Acute Assessment and Plan: patient being diuresed will monitor the patient kidney function Subjective Date/time seen: 04/05/21 14:53 Chief Complaint: Abnormal labs HPI-Narrative: Patient is a 75-year-old female who presents to the ER for abnormal labs. She states she has a history of myeloproliferative disorder and follows with Dr. Song and gets injections. See has been running well since the injection started for approximately 6 months prior to which she used to need transfusion every 2-4 weeks. She has not had required any transfusion since past 6 months however today when she went to go for the injection they checked her blood to see however hemoglobin is doing which is routine knee done she was found to have hemoglobin of 6.2. She was then sent to the ER to get transfusion and further evaluation. She states she has been more short of breath will past week or so and has underlying diagnosis of COPD/congestive heart failure. She has been chronically on 2 L oxygen at home for several years. She denies any increased leg swelling or any cough. She also denies any abdominal pain or any blood in her stool or dark colored stool. She states that her hemoglobin is normally runs between 9-10. 04/05/2021 Interval history: 75-year-old female with history myelofibrosis made in 2010 along with possible myelodysplastic syndrome. patient has been seen by oncologist and has been receiving weekly injection of Aranesp 200mcg and her last treatment was 3 months ago as her hemoglobin was close to 10, patient presented to oncology office yesterday with complaint of being tired and fatigue and her hemoglobin was 6.1 patient was sent to emergency department for further evaluation and received 2 units of pack RBC, this morning patient states feeling much better however she fells short of breath and her BNP is 21,000, with history grade 3 diastolic congestive heart failure, patient was given IV Lasix 20 mg IV x1 in ER will give another dose of IV Lasix 20 mg time 1, will monitor reassess in the morning and possibly discharge the patient. will have a PT OT evaluate the patient. Review of Systems Review of Systems: All systems reviewed & are unremarkable except as noted in HPI and below Exam Narrative: elderly frail Patient is comfortable, NAD HEENT: eyes are clear and none icteric LUNGS: bilateral fair air entry with rales and rhonchi HEART: RR S1S2 ABD: BS+, Soft and nontender Lower extremities: no edema SKIN: nonjaundiced Neuro: grossly intact. Objective Data Vital
[2021-04-06] VITALS (8 sets, daily range): BP systolic 116–135; BP diastolic 56–71; PULSE 67–88; RESP 18–20; TEMP 36.2–37.1; O2SAT 91–93
[2021-04-06] MEDS: PANTOPRAZOLE 40 MG TABLET PO (08:51)
[2021-04-06] MEDS: METOPROLOL TARTRATE 12.5 MG TABLET PO ×2 (08:51→20:49)
[2021-04-06] MEDS: ATORVASTATIN 10 MG TABLET PO (08:51)
[2021-04-06] MEDS: buPROPion HCL XL (24 HR) 150 MG TABCR PO (08:51)
[2021-04-06] MEDS: CENTRAL LINE FLUSH 10 ML IV PUSH ×3 (08:53→20:51)
[2021-04-06] MEDS: FLUTICASONE PROPIONATE 0.05% NA SPR 16 GM BTL (*BKC) 1 SPRAY NASAL ×2 (08:53→17:36)
[2021-04-06] MEDS: busPIRone HCL 5 MG TABLET 15 MG PO ×2 (09:30→17:55)
[2021-04-06] MEDS: traMADol HCL (*CRX) 50 MG TABLET PO ×2 (09:30→17:39)
[2021-04-06] MEDS: ACYCLOVIR 400 MG TABLET PO ×2 (09:30→17:55)
[2021-04-06] MEDS: TORSEMIDE 10 MG TABLET PO (09:30)
[2021-04-06 09:45] LABS: Hematocrit 31.4 % (37.0-47.0); Hemoglobin 10.6 g/dL (12.0-15.0); Immature Platelet Fraction Pct 6.4 % (0.9-11.2); Mean Corpuscular HGB Conc 33.8 g/dl (32-36); Mean Corpuscular Hemoglobin 30.1 pg (26-34); Mean Corpuscular Volume 89.2 fl (80-100); Mean Platelet Volume 10.5 fl (7.4-10.4); Platelet Count Result 72 k/mm3 (150-375); Red Blood Count 3.52 M/mm3 (4.2-5.4); Red Cell Distribution Width 20.1 % (11.5-14.5); White Blood Count 2.8 K/mm3 (4.5-10.0)
[2021-04-06 09:53] LABS: Anion Gap 9 mmol/L (8-16); Blood Urea Nitrogen 26 mg/dL (7-17); Calcium 8.6 mg/dL (8.4-10.2); Carbon Dioxide 21 mmol/L (22-30); Chloride 105 mmol/L (98-107); Estimated Glomerular Filt Rate 40; Glucose 183 mg/dL (65-110); Magnesium 1.7 mg/dL (1.6-2.3); Potassium 3.7 mmol/L (3.4-5.0); Sodium 135 mmol/L (137-145)
[2021-04-06] MEDS: FUROSEMIDE INJ 40 MG/4 ML VIAL 20 MG IV PUSH (12:40)
--- NOTE | 2021-04-06 13:02 | PM.IMPN ---
Progress Note: A&P Assessment and Plan (1) Symptomatic anemia: Code(s): D64.9 - Anemia, unspecified Status: Acute Assessment and Plan: 04/05/2021 Interval history: 75-year-old female with history myelofibrosis made in 2010 along with possible myelodysplastic syndrome. patient has been seen by oncologist and has been receiving weekly injection of Aranesp 200mcg and her last treatment was 3 months ago as her hemoglobin was close to 10, patient presented to oncology office yesterday with complaint of being tired and fatigue and her hemoglobin was 6.1 patient was sent to emergency department for further evaluation and received 2 units of pack RBC, this morning patient states feeling much better however she fells short of breath and her BNP is 21,000, with history grade 3 diastolic congestive heart failure, patient was given IV Lasix 20 mg IV x1 in ER will give another dose of IV Lasix 20 mg time 1, will monitor reassess in the morning and possibly discharge the patient. will have a PT OT evaluate the patient. 04/06/2021 Interval history: 75-year-old female with history myelofibrosis in 2010 along with possible myelodysplastic syndrome. patient has been seen by oncologist and has been receiving weekly injection of Aranesp 200mcg and her last treatment was 3 months ago as her hemoglobin was close to 10, patient presented to oncology office on 04/04 with complaint of being tired and fatigue and her hemoglobin was 6.1 patient was sent to emergency department for further evaluation and received 2 units of pack RBC, now today Hgb is 10.6, this morning patient states feeling much better however she feels short of breath and her BNP is 21,000, with history grade 3 diastolic congestive heart failure, patient is on 3L NC at home now requiring 5L, patient was given IV Lasix 20 mg IV x1 in ER, gave Lasix 20 IV on 04/05 amd will give another dose of IV Lasix 20 mg time 1 today , will monitor reassess in the morning and possibly discharge the patient. will have a PT OT evaluate the patient. (2) CHF (congestive heart failure): Code(s): I50.9 - Heart failure, unspecified Status: Acute Assessment and Plan: patient with a grade 3 diastolic congestive heart failure, will gently diurese the patient and monitor (3) Acute renal insufficiency: Code(s): N28.9 - Disorder of kidney and ureter, unspecified Status: Acute Assessment and Plan: patient being diuresed will monitor the patient kidney function Additional Plan # Acute on chronic anemia multifactorial myelofibrosis versus GI blood loss. However no source of bleeding evident. Transfuse to keep hemoglobin more than 7 admission hemoglobin of 6.1 check fecal occult blood. Dr. Song has been consulted from the ER. # Shortness of breath chest x-ray with features of pulmonary edema. Also has low hemoglobin might be exacerbated because of low blood count. Cautiously transfuse to get her hemoglobin up target to keep around 8 due to her underlying history of congestive heart failure. # CKD stage 3 compared to recent labs mild DORYS noted. This could be related to worsening anemia. Transfusion continue to monitor. # Chronic respiratory failure chronic home oxygen 2 L continuous # COPD not in exacerbation continue home medication # acute on chronic Diastolic congestive heart failure with some exacerbation likely due to worsening anemia. Diurese as tolerated. Ejection fraction 50-55% moderate MR [id number] TR severe pulmonary hypertension 03/17 # severe Mitral regurgitation # History of myelofibrosis with pancytopenia on Aranesp injections per oncology # Coronary artery disease status post stent to proximal circumflex 2018. On Plavix which will be held until bleeding ruled out and H&H stable # DVT prophylaxis pharmacologic contraindicated SCDs ordered # Code status discussed with the patient knows to be do not resuscitate Subjective Date/time seen:
[2021-04-06] MEDS: MIRTAZAPINE 7.5 MG TABLET PO (20:49)
[2021-04-07] VITALS (10 sets, daily range): BP systolic 137–139; BP diastolic 47–74; PULSE 76–88; RESP 18; TEMP 36.3–36.5; O2SAT 86–98
[2021-04-07] MEDS: CENTRAL LINE FLUSH 10 ML IV PUSH ×2 (05:34→13:08)
[2021-04-07] MEDS: PANTOPRAZOLE 40 MG TABLET PO (08:58)
[2021-04-07] MEDS: buPROPion HCL XL (24 HR) 150 MG TABCR PO (08:59)
[2021-04-07] MEDS: busPIRone HCL 5 MG TABLET 15 MG PO (08:59)
[2021-04-07] MEDS: METOPROLOL TARTRATE 12.5 MG TABLET PO (08:59)
[2021-04-07] MEDS: ACYCLOVIR 400 MG TABLET PO (08:59)
[2021-04-07] MEDS: ATORVASTATIN 10 MG TABLET PO (08:59)
[2021-04-07] MEDS: FLUTICASONE PROPIONATE 0.05% NA SPR 16 GM BTL (*BKC) 1 SPRAY NASAL (09:00)
[2021-04-07] MEDS: traMADol HCL (*CRX) 50 MG TABLET PO (09:07)
--- NOTE | 2021-04-07 11:52 | P.PNIM_ITS ---
Progress Note: A&P Assessment and Plan (1) Symptomatic anemia: Code(s): D64.9 - Anemia, unspecified Status: Acute Assessment and Plan: 04/05/2021 Interval history: 75-year-old female with history myelofibrosis made in 2010 along with possible myelodysplastic syndrome. patient has been seen by oncologist and has been receiving weekly injection of Aranesp 200mcg and her last treatment was 3 months ago as her hemoglobin was close to 10, patient presented to oncology office yesterday with complaint of being tired and fatigue and her hemoglobin was 6.1 patient was sent to emergency department for further evaluation and received 2 units of pack RBC, this morning patient states feeling much better however she fells short of breath and her BNP is 21,000, with history grade 3 diastolic congestive heart failure, patient was given IV Lasix 20 mg IV x1 in ER will give another dose of IV Lasix 20 mg time 1, will monitor reassess in the morning and possibly discharge the patient. will have a PT OT evaluate the patient. 04/06/2021 Interval history: 75-year-old female with history myelofibrosis in 2010 along with possible myelodysplastic syndrome. patient has been seen by oncologist and has been receiving weekly injection of Aranesp 200mcg and her last treatment was 3 months ago as her hemoglobin was close to 10, patient presented to oncology office on 04/04 with complaint of being tired and fatigue and her hemoglobin was 6.1 patient was sent to emergency department for further evaluation and received 2 units of pack RBC, now today Hgb is 10.6, this morning patient states feeling much better however she feels short of breath and her BNP is 21,000, with history grade 3 diastolic congestive heart failure, patient is on 3L NC at home now requiring 5L, patient was given IV Lasix 20 mg IV x1 in ER, gave Lasix 20 IV on 04/05 amd will give another dose of IV Lasix 20 mg time 1 today , will monitor reassess in the morning and possibly discharge the patient. will have a PT OT evaluate the patient. (2) CHF (congestive heart failure): Code(s): I50.9 - Heart failure, unspecified Status: Acute Assessment and Plan: patient with a grade 3 diastolic congestive heart failure, will gently diurese the patient and monitor (3) Acute renal insufficiency: Code(s): N28.9 - Disorder of kidney and ureter, unspecified Status: Acute Assessment and Plan: patient being diuresed will monitor the patient kidney function Additional Plan # Acute on chronic anemia multifactorial myelofibrosis versus GI blood loss. However no source of bleeding evident. Transfuse to keep hemoglobin more than 7 admission hemoglobin of 6.[address] check fecal occult blood. Dr. Song has been consulted from the ER. # Shortness of breath chest x-ray with features of pulmonary edema. Also has low hemoglobin might be exacerbated because of low blood count. Cautiously transfuse to get her hemoglobin up target to keep around 8 due to her underlying history of congestive heart failure. # CKD stage 3 compared to recent labs mild DORYS noted. This could be related to worsening anemia. Transfusion continue to monitor. # Chronic respiratory failure chronic home oxygen 2 L continuous # COPD not in exacerbation continue home medication # acute on chronic Diastolic congestive heart failure with some exacerbation likely due to worsening anemia. Diurese as tolerated. Ejection fraction 50-55% moderate MR [id number] TR severe pulmonary hypertension 03/17 # severe Mitral regurgitation # History of myelofibrosis with pancytopenia on Aranesp injections per oncology # Coronary artery disease status post stent to proximal circumflex 2019. O
[2021-04-07] MEDS: TORSEMIDE 10 MG TABLET PO (13:07)
--- NOTE | 2021-04-07 14:23 | PCRCNOTE ---
HOME O2 EVAL COMPLETE, 3 LITERS AT REST AND WITH ACTIVITY. PT HAS HOME O2, HER WILL BEING IN PORTABLE CONCENTRATOR FOR DISCHARGE.
--- NOTE | 2021-04-07 15:49 | PM.DS ---
DS: Admitting Diagnosis Discharge Date 04/07/2019 to Admitting Diagnosis Anemia DS: Discharge Diagnosis Discharge Diagnosis (1) Symptomatic anemia: Code(s): D64.9 - Anemia, unspecified Status: Acute Assessment and Plan: 75-year-old female with history myelofibrosis made in 2010 along with possible myelodysplastic syndrome. patient has been seen by oncologist and has been receiving weekly injection of Aranesp 200mcg and her last treatment was 3 months ago as her hemoglobin was close to 10, patient presented to oncology office yesterday with complaint of being tired and fatigue and her hemoglobin was 6.1 patient was sent to emergency department for further evaluation and received 2 units of pack RBC. H&H improved to 10 after transfusion and remained stable. She was given Lasix in between the transfusion. She got additional dose subsequently next day. She did require slightly higher level of oxygen during the hospital stay and was evaluated for home oxygen and required 3 L oxygen with rest and activity. Which is fairly about her baseline status. She also complained of foot pain for which x-ray was done which showed no fracture but had chronic osteoarthritis. He states he was back to her baseline physical eyes and hence wanted to go home. She will continue to follow up with CBC monitoring as an outpatient basis. Dr. song saw her during the hospital stay as well. The unclear etiology for her anemia we plan to get a stool occult blood however could not be collected due to no bowel movement. She the denies any dark stool or melena or any hematemesis or hematochezia. He will be followed up as an outpatient basis for further treatment. (2) CHF (congestive heart failure): Code(s): I50.9 - Heart failure, unspecified Status: Acute Assessment and Plan: patient with a grade 3 diastolic congestive heart failure, will gently diurese the patient and monitor (3) Acute renal insufficiency: Code(s): N28.9 - Disorder of kidney and ureter, unspecified Status: Acute Assessment and Plan: patient being diuresed will monitor the patient kidney function DS: Summary Hospital Course Hospital Course: See above Time Spent with Patient Time attestation: Total time spent providing and/or coordinating discharge services: 45 minutes Exam Narrative: elderly frail, not in acute distress Patient is comfortable, NAD HEENT: eyes are clear and non icteric LUNGS: Coarse breath sound bilaterally with no rales or rhonchi or wheezes no respiratory distress on chronic oxygen HEART: RR S1S2 ABD: BS+, Soft and nontender Lower extremities: Forefoot mildly erythematous which is chronic tenderness in her right foot some swelling SKIN: nonjaundiced no rashes Neuro: grossly intact. Alert and oriented x3 DS: Data Imaging Radiologist's impression: ITS Impressions Chest X-Ray 04/04/21 15:55 IMPRESSION: 1. Mild pulmonary edema. 2. Cardiomegaly. Foot X-Ray 04/07/21 13:03 IMPRESSION: 1. 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 Discharge Plan Discharge Attending physician on discharge: Fabian Corrigan Consulting providers: Dionicio Song ; Discharging Clinician: Fabian Corrigan Anticipated Discharge Date/Time: 04/07/21 15:47 Patient Disposition: Home Health Service Patient Instructions: Antibiotic Form Stand Alone Forms: General Discharge Information Follow-up/Referrals: Dionicio Song MD [Physician] - (As scheduled) PHYSICIAN NOT ON STAFF,NONSTAFF [Primary Care Provider] - 1 Week (Follow-up with PCP in 1 week) Discharge Medications: Continued bupropion HCl 150 mg tablet sustained-release 12 hr 150 mg PO DAILY RF: 0 albuterol sulfate 2.5 mg /3 mL (0
[2021-04-07] MEDS: HEPARIN SODIUM LOCK FLUSH 500 UNITS/5 ML VIAL IV PUSH (17:04)
== END 2021-04-07 18:00 | disposition home or self-care (01) | DRG 811 ==
LOC: ANHED 18:17 → ANH3MEDSUR 18:51
PROVIDERS: Internal Medicine; Admitting Provider Family Medicine; Emergency Provider Emergency Medicine; Visit Provider Family Medicine
DX: D64.9 Anemia, unspecified (principal); I50.33 Acute on chronic diastolic (congestive) heart failure; D75.81 Myelofibrosis; N17.9 Acute kidney failure, unspecified; J96.10 Chronic respiratory failure, unspecified whether with hypoxia or hypercapnia; D63.1 Anemia in chronic kidney disease; F41.9 Anxiety disorder, unspecified; I34.0 Nonrheumatic mitral (valve) insufficiency; I25.2 Old myocardial infarction; I25.10 Atherosclerotic heart disease of native coronary artery without angina pectoris; J44.9 Chronic obstructive pulmonary disease, unspecified; M19.071 Primary osteoarthritis, right ankle and foot; N18.31 Chronic kidney disease, stage 3a; Z95.5 Presence of coronary angioplasty implant and graft; Z99.81 Dependence on supplemental oxygen; Z87.891 Personal history of nicotine dependence; Z79.02 Long term (current) use of antithrombotics/antiplatelets; Z66 Do not resuscitate
CPT/HCPCS: 36415; 36430; 71045; 73620; 80048; 80053; 83735; 83880; 84484; 85025; 85027; 85046; 85055; 85610; 85730; 86850; 86900; 86901; 86920; 93005; 94618; 96374; 96376; 99285; A9270; G0378; J1642; J1940; J7050; P9016

== ENCOUNTER 2021-05-15 10:53 | Observation (INO) | payer MEDICARE, SELFPAY ==
[2021-05-15] VITALS (64 sets, daily range): BP systolic 93–144; BP diastolic 41–103; PULSE 51–100; RESP 16–28; TEMP 35.7–36.8; O2SAT 86–100
--- NOTE | ~2021-05-15 | XR_ITS ---
EXAMINATION: XR chest 1V portable INDICATION: Shortness of breath TECHNIQUE: Portable AP chest at 1154 hours COMPARISON: 04/04/2021 FINDINGS: A left internal jugular Port-A-Cath ends with its tip in the distal superior vena cava. The lungs are free of acute opacities. There is no pleural effusion or pneumothorax. The cardiomediastin al silhouette is normal. There is advanced osteoarthritis of the left shoulder. IMPRESSION: 1. No acute cardiopulmonary abnormality. Reviewed, dictated and finalized at location B.
--- NOTE | 2021-05-15 11:01 | ECG_ITS ---
Measurements Intervals [place] Rate: 86 P: 77 NE: 170 QRS: 13 QRSD: 103 T: 188 QT: 357 QTc: 427 Interpretive Statements SINUS RHYTHM MODERATE T-WAVE ABNORMALITY, CONSIDER LATERAL ISCHEMIA [-0.1+ mV T-WAVE IN I/aVL/V5/V6] COMPARED TO ECG 04/04/2021 15:33:07 NO SIGNIFICANT CHANGES Electronically Signed On 05-15-2021 15:45:35 CDT by Mike Patricia M.D.
[2021-05-15] MEDS: ALBUTEROL SULFATE NEB 2.5 MG/0.5 ML INH 15 MG INHALATION (11:05)
[2021-05-15] MEDS: IPRATROPIUM BR 0.02% INH SOLN 0.5 MG/2.5 ML VIAL 1.5 MG INHALATION (11:06)
[2021-05-15] MEDS: methylPREDNISolone SOD SUCC 125 MG VIAL IV PUSH (11:11)
[2021-05-15 11:17] LABS: Immature Platelet Fraction Pct 4.5 % (0.9-11.2); Mean Corpuscular HGB Conc 32.1 g/dl (32-36); Mean Corpuscular Hemoglobin 29.9 pg (26-34); Mean Corpuscular Volume 93.1 fl (80-100); Mean Platelet Volume 10.1 fl (7.4-10.4); Platelet Count Result 71 k/mm3 (150-375); Red Blood Count 2.04 M/mm3 (4.2-5.4); Red Cell Distribution Width 17.2 % (11.5-14.5); White Blood Count 6.1 K/mm3 (4.5-10.0)
[2021-05-15 11:25] LABS: Alanine Aminotransferase 13 U/L (4-35); Albumin Level 3.1 g/dL (3.5-5.1); Alkaline Phosphatase 69 U/L (38-126); Anion Gap 12 mmol/L (8-16); Aspartate Amino Transferase 25 U/L (14-36); Bilirubin,Total 0.4 mg/dL (0.2-1.3); Blood Urea Nitrogen 41 mg/dL (7-17); Calcium 8.1 mg/dL (8.4-10.2); Carbon Dioxide 16 mmol/L (22-30); Chloride 102 mmol/L (98-107); Estimated Glomerular Filt Rate 34; Glucose 154 mg/dL (65-110); Potassium 4.6 mmol/L (3.4-5.0); Sodium 130 mmol/L (137-145)
[2021-05-15 11:34] LABS: NT Pro B Type Natriuretic Pept 21400 pg/mL (5-100)
[2021-05-15 11:36] LABS: Hemoglobin 6.1 g/dL (12.0-15.0)
[2021-05-15 11:41] LABS: Lymphocytes Absolute Manual 0.85 K/mm3 (1.1-4.5); Monocytes Absolute Manual 1.22 K/mm3 (0.1-0.90); Monocytes Percent Manual 20 % (3-9); Neutrophils Percent Manual 66 % (46-73); Nucleated Red Blood Cells 2 %; Platelet Estimate Adequate (Adequate); Total Cells Counted 100
[2021-05-15 11:42] LABS: Anisocytosis 3+ (NORMAL); Ovalocytes 2+ (NORMAL); Tear Drop Cells 1+ (NORMAL)
[2021-05-15 11:51] LABS: SARS-CoV-2 RNA PCR Negative
--- NOTE | 2021-05-15 12:00 | ED.SOB ---
HPI - SOB/Dyspnea General Chief Complaint: Shortness of Breath/Dyspnea Stated Complaint: SOB Time Seen by Provider: 05/15/21 10:55 Source: patient, family, EMS, RN notes reviewed and old records reviewed History of Present Illness HPI Narrative: Patient presents with shortness of breath. She has a history of myelodysplastic syndrome CHF and COPD. She was recently discharged from [facility] for stent in her leg as well as treatment of pneumonia and requirement of blood transfusion. Patient was initially doing well however the past few days has had increasing weakness and shortness of breath. EMS was called as patient normal oxygen requirement is 2 L however she was satting 70 exam increase her oxygen to 4 L remained in the 70s EMS started CPAP and transfer the patient to the closest emergency room. Patient did request to be transferred to [facility] is that is where most of her care is provided. Related Data Home Medications Medication Instructions Recorded Confirmed albuterol sulfate 2.5 mg INHALATION QID PRN 12/15/19 04/04/21 bupropion HCl 150 mg PO DAILY 12/15/19 04/04/21 deferasirox [Jadenu] 360 mg PO DAILY 12/15/19 04/04/21 metoprolol tartrate 12.5 mg PO BID 12/15/19 04/04/21 omeprazole 20 mg PO DAILY 12/15/19 04/04/21 atorvastatin 10 mg PO DAILY 08/15/20 04/04/21 azelastine 137 mcg INTRANASAL Q12H PRN 08/15/20 04/04/21 benzonatate 200 mg PO TID PRN 08/15/20 04/04/21 diclofenac sodium 2 g TOPICAL QID PRN 08/15/20 04/04/21 fluticasone propionate 1 spray INTRANASAL BID 08/15/20 04/04/21 polyethylene glycol 3350 [Miralax] 17 g PO DAILY PRN 08/15/20 04/05/21 tramadol 50 mg PO BID 08/15/20 04/05/21 mirtazapine 7.5 mg PO HS 08/27/20 04/04/21 ondansetron HCl 4 mg PO BID 08/27/20 04/05/21 acyclovir 400 mg PO BID 04/05/21 04/05/21 buspirone 15 mg PO BID 04/05/21 04/05/21 Allergies Allergy/AdvReac Type Severity Reaction Status Date / Time diazepam Allergy Unknown Unknown Verified 12/15/19 19:02 doxycycline Allergy Unknown Hives Verified 05/15/21 11:21 Iodinated Contrast Media Allergy Unknown Hives Verified 05/15/21 11:21 shellfish derived Allergy Unknown Hives Verified 05/15/21 11:21 Sulfa (Sulfonamide Allergy Unknown Nausea and Verified 05/15/21 11:21 Antibiotics) Vomiting trandolapril Allergy Unknown Cough Verified 05/15/21 11:22 Review of Systems Review of Systems: CONSTITUTIONAL: Denies fever, chills, or sweats. EYES: Denies visual changes, redness, or discharge. ENT: Denies rhinorrhea, congestion, sore throat, or otalgia. CARDIOVASCULAR: Denies chest pain, palpitations, or edema. RESPIRATORY: Reports shortness of breath GASTROINTESTINAL: Denies abdominal pain, nausea, vomiting, or diarrhea. GENITOURINARY: Denies dysuria or hematuria. SKIN: Denies rash or itching. MUSCULOSKELETAL: Denies back pain, joint pain, or myalgia. NEUROLOGIC: Denies headache, numbness, dizziness, or focal weakness weakness. PSYCHIATRIC: Denies anxiety or depression. All systems reviewed & are unremarkable except as noted in HPI and below ROS unobtainable: Yes unobtainable due to medical condition (Review of systems limited due to BiPAP machine) [facility] Past Medical History Medical History Chronic progressive renal failure, stage 3 (moderate) COPD (chronic obstructive pulmonary disease) Coronary artery disease Diastolic congestive heart failure Mitral regurgitation Myelofibrosis Myocardial infarction Surgical History Surgical History S/p bilateral myringotomy with tube placement Stented coronary artery Social History Social History Smoking packs per day: 1 Smoking cigarettes per day: 20.0 Years smoked: 40 Smoking pack-years: 40.00 Smoking status: Former smoker Tobacco type: cigarettes Second hand tobacco smoke exposure: No Alcohol intake: current Drinks per week:
[2021-05-15] MEDS: FUROSEMIDE INJ 40 MG/4 ML VIAL IV PUSH (12:17)
--- NOTE | 2021-05-15 12:21 | PC.NURSE ---
patient arrived to the ED via EMS with c/o SOB. recently discharged from [facility] on Saturday. states that she was recently dx with pneumonia. patient has very poor peripheral circulation. be[place] feet are purple in color. pulses weak and marked. states that they did a circulation test while she was recently hospitalized. right pinky toe necrotic. unsure of how long it has been like that. currently on BiPap 10/5 setting with patient sat 100%
[2021-05-15 12:22] LABS: Add Urine Microscopic? YES; Appearance Urine Cloudy (Clear); Bilirubin Urine Negative (Negative); Blood Urine Negative (Negative); Color Urine Yellow (Yellow); Glucose Urine UA Negative (Negative); Ketones Urine Negative (Negative); Leukocyte Esterase Ur 3+ LEU/UL (Negative); Mucus Urine Rare /lpf; Nitrate Urine Negative (Negative); Protein Urine Negative (Negative); RBC Urine 0-2 /hpf (0-2); Specific Grav Ur 1.016 (1.001-1.035); Squamous Epithelial Cell Urine Few /hpf (Few); Urobilinogen Urine Negative mg/dL (<2.0); WBC Urine 31-50 /hpf
--- NOTE | 2021-05-15 14:23 | PC.NURSE ---
Bipap removed at 1420, Dr Schmitz in room. pt placed on 5l NC
[2021-05-15] MEDS: ACETAMINOPHEN 500 MG TABLET 1000 MG PO (16:14)
--- NOTE | 2021-05-15 19:00 | PM.IMHP ---
H&P: HPI History of Present Illness Date/Time: 05/15/21 19:00 Chief Complaint: Shortness of breath. Narrative: This is a 75-year-old female with multiple medical problems including myelofibrosis, chronic anemia, diastolic congestive heart failure, coronary artery disease, severe pulmonary hypertension, and peripheral vascular disease who presented to the emergency department via EMS for evaluation of shortness of breath. She has had multiple hospitalizations recently both at this facility and at [facility]. In fact she was just discharged from [facility] within the last couple of days for reported pneumonia, acute on chronic anemia requiring blood transfusion, and for stent placement in her right leg. She has been home for a few days and initially was doing okay however these last 2 days she has gotten progressively more weak and short of breath. She is chronically on 2 L nasal cannula however this morning her SpO2 was in the 70s and family members called 911. On EMS arrival she was started on CPAP and she was brought to [facility] for evaluation. She had requested to be transferred to [facility] as she receives the majority of her care there however given her oxygen requirement she was brought to the nearest facility. She was transition to BiPAP on arrival to the ED but she was able to be weaned to 4 L nasal cannula. Chest x-ray on arrival showed no acute cardiopulmonary abnormalities. She was 1 again found to be profoundly anemic with a hemoglobin and hematocrit of 6.1 and 19% respectively and 2 units packed red blood cells were ordered. Again the patient requested transfer to [facility] however they declined to take her. After lengthy discussions with the patient and her family, they decided for hospice evaluation due to her multiple comorbidities and worsening condition. [facility] Hospice team was consulted and they would like to see the patient at her home when she is discharged. At this time the plan is to admit her to our facility for blood transfusion, though we are waiting from blood from [facility] as she has multiple antibodies, and when she is feeling better she will be discharged home and meet with them at that time. The patient continues to feel short of breath and is requesting the BiPAP while she sleeps tonight, waiting for her blood transfusion. Review of Systems Review of Systems: Twelve systems were reviewed. No syncope or near syncope. She has not had any falls. She has gotten progressively more weak as detailed above. No nausea, vomiting, diarrhea, or dysuria. [facility] Past Medical History Medical History (Updated 05/16/21 @ 00:02 by Khloe Martin PA-C) Chronic obstructive pulmonary disease Chronic progressive renal failure, stage 3 (moderate) Coronary artery disease Diastolic congestive heart failure Echocardiogram in February 2020 showed normal LV systolic function with an EF of 50 to 55%, grade 3 diastolic dysfunction, and severe pulmonary hypertension with an estimated pulmonary arterial systolic pressure of 61 mmHg. Mitral regurgitation Myelofibrosis Myocardial infarction Peripheral vascular disease Severe pulmonary hypertension Surgical History Surgical History (Updated 05/15/21 @ 23:41 by Khloe Martin PA-C) Status post myringotomy with tube placement of both ears Stented coronary artery Family History Family History (Updated 05/15/21 @ 23:42 by Khloe Martin PA-C) Mother Coronary artery disease Diabetes mellitus Sibling Coronary artery disease Father Malignant neoplasm of prostate Social History Social History Social History: Surrogate decision maker: Code status: Do not resuscitate. Smoking packs per day: 1 Smoking cigarettes per day: 20.0 Years smoked: 40 Smoking pack-years: 40.00 Smoking status: Former smoker Tobacco type: cigarettes Second hand tobacco smoke exposure: No Alcohol intake: former Drinks per
[2021-05-15] MEDS: WATER FOR IRRIGATION, STERILE 1,000 ML BOTTLE 1000 ML (21:50)
[2021-05-16] VITALS (13 sets, daily range): BP systolic 132–143; BP diastolic 51–96; PULSE 97–113; RESP 19–31; TEMP 35.7–36.7; O2SAT 87–100
[2021-05-16] MEDS: SODIUM CHLORIDE 0.9% IV 250 ML 30 ML IV CONT ×2 (06:00→06:10)
--- NOTE | 2021-05-16 12:15 | PM.IMPN ---
Progress Note: A&P Assessment and Plan (1) Acute on chronic anemia: Code(s): D64.9 - Anemia, unspecified Status: Acute (2) Symptomatic anemia: Code(s): D64.9 - Anemia, unspecified Status: Acute (3) Acute and chronic respiratory failure with hypoxia: Code(s): J96.21 - Acute and chronic respiratory failure with hypoxia Status: Acute (4) Peripheral vascular disease: Code(s): I73.9 - Peripheral vascular disease, unspecified Status: Acute (5) Chronic obstructive pulmonary disease: Code(s): J44.9 - Chronic obstructive pulmonary disease, unspecified Status: Acute (6) Myelofibrosis: Code(s): D75.81 - Myelofibrosis Status: Acute (7) Diastolic congestive heart failure: Qualifiers: Heart failure chronicity: chronic Qualified Code(s): I50.32 - Chronic diastolic (congestive) heart failure Code(s): I50.30 - Unspecified diastolic (congestive) heart failure Status: Acute (8) Severe pulmonary hypertension: Code(s): I27.20 - Pulmonary hypertension, unspecified Status: Acute (9) Chronic progressive renal failure, stage 3 (moderate): Code(s): N18.30 - Chronic kidney disease, stage 3 unspecified Status: Acute Additional Plan The patient presented to the ER today with increasing weakness and shortness of breath. She was hypoxic on EMS arrival and was started on CPAP and transitioned to BiPAP in the ER though she has been weaned to 4 L. Her chest x-ray showed no acute findings. She was however found to be profoundly anemic and 2 units packed red blood cells have been ordered though she has antibodies, and we are waiting for blood to come from a regional blood bank. Her vital signs are stable at this time without active bleeding. Her lung sounds are significantly diminished but no evidence of acute bronchospasm thus will continue albuterol nebulizers as needed. She appears clinically compensated with regards to her congestive heart failure. Her creatinine has been gradually rising over the last few months, likely due to a combination of factors, including hypovolemia from profound anemia, poor forward flow from her heart failure and vascular disease, and decreased intake. As detailed in HPI, the patient and her family members have asked to meet with hospice and they do not want aggressive or invasive treatment. They would like to admit her to the hospital for transfusion and stabilization with plans to meet with [facility] at their home upon discharge. The patient her family members confirm DNR status and they want no invasive procedures. [facility] would like the medical records from this encounter to be faxed to them at [phone] attention [facility]ice Team. 05/16/2021: Pt.s spouse is on the way here as she seems to be declining and she actually may be transitioning to hospice prior to discharge as she appears very weak and has labored breathing. Time Spent With Patient Time with patient: 15 - 25 minutes Subjective Date/time seen: 05/16/21 9709 This pt. was examined at the bedside in interval assessment. She appears very labored with her breathing and the BiPap has been replaced at the desire of the patient. She has received one unit of blood thus far and we continue to look for another unit. This pt. is in the process of transitioning to hospice and she appears to have increased labored breathing. I called and spoke with her spouse who is on his way here and they advise to keep her comfortable. Pt. appears to be tired, not able to answer me and is not completely responsive at the time of my assessment. Review of Systems Review of Systems: ROS unobtainable: Yes unobtainable due to medical condition Exam Narrative: General: Very thin and frail elderly female supine in bed. Weight: 39.6 kg. HEENT: She keeps her eyes closed throughout the interview. Sclerae anicteric. Tacky mucous membranes. Neck: Supple. No obvious JVD or lymph
[2021-05-16 13:14] LABS: Hematocrit 24.7 % (37.0-47.0); Hemoglobin 8.2 g/dL (12.0-15.0); Immature Platelet Fraction Pct 2.8 % (0.9-11.2); Mean Corpuscular HGB Conc 33.2 g/dl (32-36); Mean Corpuscular Hemoglobin 30.8 pg (26-34); Mean Corpuscular Volume 92.9 fl (80-100); Mean Platelet Volume 9.4 fl (7.4-10.4); Platelet Count Result 62 k/mm3 (150-375); Red Blood Count 2.66 M/mm3 (4.2-5.4); Red Cell Distribution Width 17.6 % (11.5-14.5); White Blood Count 4.7 K/mm3 (4.5-10.0)
[2021-05-16] MEDS: MORPHINE SULFATE (*CRX) 2 MG/ML INJ IV PUSH ×2 (13:37→16:50)
--- NOTE | 2021-05-16 15:10 | PM.DS ---
DS: Admitting Diagnosis Discharge Date 05/16/21 Admitting Diagnosis 1) Acute on chronic anemia 2) Symptomatic anemia 3) Acute on chronic respiratory failure 4) PVD 5) COPD 6) Myelofibrosis 7) Diastolic heart failure 8) Severe Pulmonary Hypertension 9) COPD 10) Chronic progressive renal failure, stage 3 DS: Discharge Diagnosis Discharge Diagnosis (1) Acute on chronic anemia: Code(s): D64.9 - Anemia, unspecified Status: Acute (2) Symptomatic anemia: Code(s): D64.9 - Anemia, unspecified Status: Acute (3) Acute and chronic respiratory failure with hypoxia: Code(s): J96.21 - Acute and chronic respiratory failure with hypoxia Status: Acute (4) Peripheral vascular disease: Code(s): I73.9 - Peripheral vascular disease, unspecified Status: Acute (5) Chronic obstructive pulmonary disease: Code(s): J44.9 - Chronic obstructive pulmonary disease, unspecified Status: Acute (6) Myelofibrosis: Code(s): D75.81 - Myelofibrosis Status: Acute (7) Diastolic congestive heart failure: Qualifiers: Heart failure chronicity: chronic Qualified Code(s): I50.32 - Chronic diastolic (congestive) heart failure Code(s): I50.30 - Unspecified diastolic (congestive) heart failure Status: Acute (8) Severe pulmonary hypertension: Code(s): I27.20 - Pulmonary hypertension, unspecified Status: Acute (9) Chronic progressive renal failure, stage 3 (moderate): Code(s): N18.30 - Chronic kidney disease, stage 3 unspecified Status: Acute DS: Summary Hospital Course Reason for hospitalization: Acute on chronic anemia and weakness. Hospital Course: This very feeble and frail appearing 75 year old female patient with significant PMH of myelofibrosis, chronic anemia, diastolic congestive heart failure, coronary artery disease, severe pulmonary hypertension, and peripheral vascular disease presented to the ER yesterday with increasing weakness and shortness of breath. She was hypoxic on EMS arrival and was started on CPAP and transitioned to BiPAP in the ER though she has been weaned to 4 L. Her chest x-ray showed no acute findings. She was however found to be profoundly anemic and 2 units packed red blood cells have been ordered though she has antibodies, and we are waiting for blood to come from a regional blood bank. Her vital signs while initially stable, started to change and her oxygen saturation started to drop. She asked at times to use her BiPap because she felt so air hungry. The patient and her family members have asked to meet with hospice and they do not want aggressive or invasive treatment continued as she is tired and states she cannot catch her breath as it is painful for her. She was transfused one unit of PRBC's and we have been unable to locate a second unit. The family wants to forego the second unit and just make her comfortable. The pt is in agreement with this plan and states she wants hospice. Given this pt's history, it is reasonable to turn her over to hospice care and they are agreeable to [facility] hospice services. Pt. being discharged to inpatient hospice at this time. Status at Discharge Functional status at discharge: bed bound Overall status at discharge: patient is not back to baseline Time Spent with Patient Time attestation: Total time spent providing and/or coordinating discharge services: 60 minutes Time spent: Greater than 30 minutes Exam Narrative: General: Very thin and frail elderly female supine in bed. Weight: 39.6 kg. HEENT: She keeps her eyes closed throughout the interview. Sclerae anicteric. Tacky mucous membranes. Neck: Supple. No obvious JVD or lymphadenopathy. Respiratory: SpO2 is 100% on 4 L nasal cannula (baseline she is on 2 L). Lung sounds are diminished throughout. No significant wheezing. Chest: Port-A-Cath in the anterior chest. Cardiovascular: Regular rate and rhythm with S1-S2. Occasional ect
--- NOTE | 2021-05-16 15:30 | PM.IMHP ---
H&P: HPI History of Present Illness Date/Time: 05/16/21 15:30 Chief Complaint: Uncontrolled pain Narrative: This unfortunate 75-year-old female with history COPD, oxygen dependent, coronary artery disease, peripheral arterial disease, and my low fibrosis I become transfusion dependent. She developed antibodies and was very difficult to maintain her blood counts. She was admitted to [facility] May 15 due to dyspnea and generalized pain. She was found to be extremely anemic with hemoglobin 6.1. Creatinine was 1.3. She was transfused with 1 unit of blood. However because of recent weight loss and decline in appetite and consumption of only 2 bottles of Ensure per day for the 3 days prior to admission patient and family decided to opt for comfort care only. Because she had generalized uncontrolled pain and dyspnea at rest she was admitted to the inpatient hospice service for control of these symptoms. Review of Systems Review of Systems: ROS unobtainable: Yes unobtainable due to medical condition [facility] Past Medical History Medical History (Updated 05/16/21 @ 16:03 by Siddhartha Donnelly MD) Chronic obstructive pulmonary disease Chronic progressive renal failure, stage 3 (moderate) Coronary artery disease Diastolic congestive heart failure Echocardiogram in February 2020 showed normal LV systolic function with an EF of 50 to 55%, grade 3 diastolic dysfunction, and severe pulmonary hypertension with an estimated pulmonary arterial systolic pressure of 61 mmHg. 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 Smoking packs per day: 1 Smoking cigarettes per day: 20.0 Years smoked: 40 Smoking pack-years: 40.00 Smoking status: Former smoker Tobacco type: cigarettes Second hand tobacco smoke exposure: No Alcohol intake: former Drinks per week: 7 Substance use: never Additional living arrangements comments: The patient lives with her a 50+ years in [place]. 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 Spiritual care concerns: No Meds Home Medications and Allergies Home Medications Medication Instructions Recorded Confirmed Type albuterol sulfate 2.5 mg INHALATION QID PRN 12/15/19 04/04/21 History bupropion HCl 150 mg PO DAILY 12/15/19 04/04/21 History deferasirox [Jadenu] 360 mg PO DAILY 12/15/19 04/04/21 History metoprolol tartrate 12.5 mg PO BID 12/15/19 04/04/21 History omeprazole 20 mg PO DAILY 12/15/19 04/04/21 History torsemide 10 mg PO DAILY #0 tablet 07/30/20 04/05/21 Rx atorvastatin 10 mg PO DAILY 08/15/20 04/04/21 History azelastine 137 mcg INTRANASAL Q12H PRN 08/15/20 04/04/21 History benzonatate 200 mg PO TID PRN 08/15/20 04/04/21 History diclofenac sodium 2 g TOPICAL QID PRN 08/15/20 04/04/21 History fluticasone propionate 1 spray INTRANASAL BID 08/15/20 04/04/21 History polyethylene glycol 3350 [Miralax] 17 g PO DAILY PRN 08/15/20 04/05/21 History tramadol 50 mg PO BID 08/15/20 04/05/21 History mirtazapine 7.5 mg PO HS 08/27/20 04/04/21 History ondansetron HCl 4 mg PO BID 08/27/20 04/05/21 History acyclovir 400 mg PO BID 04/05/21 04/05/21 History buspirone 15 mg PO BID 04/05/21 04/05/21 History Allergies Allergy/AdvReac Type Sever
== END 2021-05-16 16:59 | disposition hospice, inpatient (51) ==
LOC: ANHED 17:13 → ANH3MEDSUR 17:47
PROVIDERS: Admitting Provider Internal Medicine; Emergency Provider Emergency Medicine; Visit Provider Nurse Practitioner Adult Health
DX: D64.9 Anemia, unspecified (principal); J96.21 Acute and chronic respiratory failure with hypoxia; I50.32 Chronic diastolic (congestive) heart failure; I27.20 Pulmonary hypertension, unspecified; R53.1 Weakness; N18.30 Chronic kidney disease, stage 3 unspecified; J44.9 Chronic obstructive pulmonary disease, unspecified; I25.10 Atherosclerotic heart disease of native coronary artery without angina pectoris; I34.0 Nonrheumatic mitral (valve) insufficiency; I25.2 Old myocardial infarction; I73.9 Peripheral vascular disease, unspecified; D75.81 Myelofibrosis; Z95.5 Presence of coronary angioplasty implant and graft; Z87.891 Personal history of nicotine dependence; Z99.81 Dependence on supplemental oxygen; Z79.51 Long term (current) use of inhaled steroids; Z66 Do not resuscitate; Z20.822 Contact with and (suspected) exposure to COVID-19
CPT/HCPCS: 36415; 36430; 36600; 51702; 71045; 80053; 81001; 81479; 82805; 83880; 85025; 85027; 85055; 86850; 86860; 86870; 86880; 86900; 86901; 86902; 86905; 86922; 86971; 86972; 87086; 87147; 87181; 87186; 87804; 93005; 94002; 94003; 94640; 96365; 96366; 96367; 96375; 96376; 99285; A9270; C9803; G0378; J0456; J0696; J1940; J2270; J2930; J7050; P9016; U0003; U0005

== ENCOUNTER 2021-05-16 15:20 | HOS | payer OTHER, MEDICARE, SELFPAY ==
--- NOTE | 2021-05-16 16:04 | HP_ITS ---
This report was moved to the correct visit, on 05/18/21. Original report was signed by Siddahrtha Donnelly MD on 05/16/21 [id number]. H&P: HPI History of Present Illness Date/Time: 05/16/21 15:30 Chief Complaint: Uncontrolled pain Narrative: This unfortunate 75-year-old female with history COPD, oxygen dependent, coronary artery disease, peripheral arterial disease, and my low fibrosis I become transfusion dependent. She developed antibodies and was very difficult to maintain her blood counts. She was admitted to [facility] May 15 due to dyspnea and generalized pain. She was found to be extremely anemic with hemoglobin 6.1. Creatinine was 1.3. She was transfused with 1 unit of blood. However because of recent weight loss and decline in appetite and consumption of only 2 bottles of Ensure per day for the 3 days prior to admission patient and family decided to opt for comfort care only. Because she had generalized uncontrolled pain and dyspnea at rest she was admitted to the inpatient hospice service for control of these symptoms. Review of Systems Review of Systems: ROS unobtainable: Yes unobtainable due to medical condition [facility] Past Medical History Medical History (Updated 05/16/21 @ 16:03 by Siddhartha Donnelly MD) Chronic obstructive pulmonary disease Chronic progressive renal failure, stage 3 (moderate) Coronary artery disease Diastolic congestive heart failure Echocardiogram in February 2020 showed normal LV systolic function with an EF of 50 to 55%, grade 3 diastolic dysfunction, and severe pulmonary hypertension with an estimated pulmonary arterial systolic pressure of 61 mmHg. 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 Smoking packs per day: 1 Smoking cigarettes per day: 20.0 Years smoked: 40 Smoking pack-years: 40.00 Smoking status: Former smoker Tobacco type: cigarettes Second hand tobacco smoke exposure: No Alcohol intake: former Drinks per week: 7 Substance use: never Additional living arrangements comments: The patient lives with her a 50+ years in [place]. 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 Spiritual care concerns: No Meds Home Medications and Allergies Home Medications Medication Instructions Recorded Confirmed Type albuterol sulfate 2.5 mg INHALATION QID PRN 12/15/19 04/04/21 History bupropion HCl 150 mg PO DAILY 12/15/19 04/04/21 History deferasirox [Jadenu] 360 mg PO DAILY 12/15/19 04/04/21 History metoprolol tartrate 12.5 mg PO BID 12/15/19 04/04/21 History omeprazole 20 mg PO DAILY 12/15/19 04/04/21 History torsemide 10 mg PO DAILY #0 tablet 07/30/20 04/05/21 Rx atorvastatin 10 mg PO DAILY 08/15/20 04/04/21 History azelastine 137 mcg INTRANASAL Q12H PRN 08/15/20 04/04/21 History benzonatate 200 mg PO TID PRN 08/15/20 04/04/21 History diclofenac sodium 2 g TOPICAL QID PRN 08/15/20
[2021-05-16] MEDS: MORPHINE SULFATE INJ (*CRX) 50 MG in SODIUM CHLORIDE 0.9% IV 95 ML IV CONT (18:20)
[2021-05-16 20:00] VITALS: O2SAT 97
[2021-05-16] MEDS: LORazepam INJ (*CRX) 2 MG/ML VIAL 1 MG IV PUSH (20:44)
[2021-05-16] MEDS: CENTRAL LINE FLUSH 10 ML IV PUSH (20:45)
--- NOTE | 2021-05-16 22:31 | PC.NURSE ---
Called [facility] at [phone] as family is requesting medication to help patient be more comfortable with breathing. [facility] said they will call back once a triage nurse is available.
[2021-05-16] MEDS: MORPHINE SULFATE (*CRX) 2 MG/ML INJ IV PUSH (22:35)
[2021-05-17] MEDS: GLYCOPYRROLATE INJ (*SP) 0.2 MG/ML VIAL 0.1 MG IV PUSH ×2 (03:38→08:19)
[2021-05-17] MEDS: MORPHINE SULFATE (*CRX) 2 MG/ML INJ 4 MG IV PUSH (03:38)
[2021-05-17] MEDS: CENTRAL LINE FLUSH 10 ML IV PUSH (05:10)
[2021-05-17 08:00] VITALS: O2SAT 96
--- NOTE | 2021-05-20 12:30 | P.DN_ITS ---
Discharge Summary Date and Time Date of : 05/17/21 Time of : 09:35 Provider Pronounced By: Aleshia Nowak RN Probable Cause of Probable Cause of : Acute on chronic hypoxic respiratory failure due to COPD and severe anemia due to myelofibrosis Summary Hospital Course: Admitted to inpatient hospice service due to pain, uncontrolled dyspnea. Medications were titrated to comfort. Patient peacefully. Additional Data Confirmation of as documented by pronouncing clinician: Pupillary Reflex, Palpable Pulses, Response to Stimuli, Heart Tones and Breath Sounds Name of Provider Notified: ANGEL Time Provider Notified: 09:57 Family Requests Autopsy: No Senior Quality Assurance Engineer Notified: Yes Date [facility] Notified of : 05/17/21 Time [facility] Notified of : 09:59
== END 2021-05-17 09:35 | disposition expired | DRG 189 ==
PROVIDERS: Admitting Provider Internal Medicine; Visit Provider Internal Medicine
DX: J96.21 Acute and chronic respiratory failure with hypoxia (principal); I50.32 Chronic diastolic (congestive) heart failure; Z51.5 Encounter for palliative care; J44.9 Chronic obstructive pulmonary disease, unspecified; I27.20 Pulmonary hypertension, unspecified; I73.9 Peripheral vascular disease, unspecified; D63.1 Anemia in chronic kidney disease; N18.30 Chronic kidney disease, stage 3 unspecified; I25.10 Atherosclerotic heart disease of native coronary artery without angina pectoris; Z79.899 Other long term (current) drug therapy
CPT/HCPCS: A9270; J1642; J2060; J2270